=== PATIENT | male | born 1940 | race Caucasian/White ===

== ENCOUNTER 2018-01-14 07:49 | Inpatient (IN) | payer OTHER ==
[2017-12-28 11:25] VITALS: BMI 32.0
--- NOTE | 2017-12-28 12:02 | PAT Medication Instructions ---
Service Date Dec 28, 2017. Current Home Medication List Aspirin (Aspirin Ec), 81 MG PO QPM Citalopram Hydrobromide (Citalopram Hydrobromide), 1 TAB PO QAM Digoxin (Digoxin), 1 TAB PO QAM Furosemide (Lasix), 40 MG PO Q2D Insulin Glargine (Toujeo Solostar), 30 UNITS SQ BID Levothyroxine Sodium (Levothyroxine Sodium), 1 TAB PO QAM Linaclotide (Linzess), 1 CAP PO Q2D Lisinopril (Zestril), 20 MG PO QAM Metoprolol Tartrate (Lopressor) (Lopressor), 25 MG PO BID Oxycodone Ir (Roxicodone Ir), 5 MG PO Q6H PRN for Pain Ranitidine (Zantac), 300 MG PO HS Sennosides-Docusate Sodium (Stool Softener), 1 TAB PO BID Medication Instructions For Your Scheduled Surgery - Hold the following medications the morning of surgery: Sennosides-Docusate Sodium (Stool Softener), 1 TAB PO BID Lisinopril (Zestril), 20 MG PO QAM Linaclotide (Linzess), 1 CAP PO Q2D Furosemide (Lasix), 40 MG PO Q2D - Take the following medications the morning of surgery with a sip of water: Citalopram Hydrobromide (Citalopram Hydrobromide), 1 TAB PO QAM Digoxin (Digoxin), 1 TAB PO QAM Levothyroxine Sodium (Levothyroxine Sodium), 1 TAB PO QAM Metoprolol Tartrate (Lopressor) (Lopressor), 25 MG PO BID Oxycodone Ir (Roxicodone Ir), 5 MG PO Q6H PRN for Pain (okay to take up to 4 hours prior to surgery if needed) - Take the following medications as scheduled the night before surgery: Sennosides-Docusate Sodium (Stool Softener), 1 TAB PO BID Ranitidine (Zantac), 300 MG PO HS Metoprolol Tartrate (Lopressor) (Lopressor), 25 MG PO BID Oxycodone Ir (Roxicodone Ir), 5 MG PO Q6H PRN for Pain (if needed) Linaclotide (Linzess), 1 CAP PO Q2D Insulin Glargine (Toujeo Solostar), 30 UNITS SQ BID Aspirin (Aspirin Ec), 81 MG PO QPM - For Insulin Dependent Diabetic patients: Test blood sugar A.M. of surgery. - If Blood sugar greater than 150, take half of your regular dose of: Insulin Glargine (Toujeo Solostar), take 15 units - If Blood sugar less than 150, do not take any: Insulin Glargine (Toujeo Solostar) If you have any questions please call us at [phone] or [phone] or [phone]
--- NOTE | 2017-12-28 12:47 | DIAGNOSTIC IMAGING REPORT ---
TWO VIEW CHEST CLINICAL HISTORY: Preoperative examination. FINDINGS: PA and lateral chest radiographs are obtained. No prior studies are available for comparison at the time of dictation. The heart is mildly enlarged and there is atherosclerotic calcification of the thoracic aorta. The pulmonary vasculature is noncongested. Nonspecific interstitial thickening is noted. Findings suggest emphysema. There are airspace opacities at the left lung base with blunting of the costophrenic sulcus. There is also mild blunting of the right posterior frontal sulcus single frontal view. This could not be corroborated on the lateral view. There is no pneumothorax. The skeletal structures are osteopenic. Degenerative change is seen throughout the thoracic spine. Surgical clips are noted in the upper abdomen. IMPRESSION: 1. Cardiomegaly and suspect emphysema. 2. No acute cardiopulmonary abnormality is seen. 3. There is blunting of the calcific sulci bilaterally seen on the frontal view which could not be corroborated on the lateral view. This may represent pleural thickening versus small pleural effusions. Consider chest CT if further assessment is desired. Electronically signed by: Nitin Crowley M.D. 12/28/2017 12:45 PM Dictated Date/Time: 12/28/2017 12:43 PM
[2017-12-28 13:08] LABS: BASO % 0.4 %; BASO ABS # 0.03 K/uL (0-0.2); EOS % 3.6 %; EOS ABS # 0.28 K/uL (0-0.5); HEMATOCRIT 39.1 % (42-52); HEMOGLOBIN 12.5 g/dL (14.0-18.0); IG# 0.03 K/uL (0.00-0.02); LYMPH % 20.5 %; LYMPH ABS # 1.58 K/uL (1.2-3.4); MEAN CELL VOLUME 86.1 fL (80-100); MEAN CORPUSCULAR HEMOGLOBIN 27.5 pg (25-34); MEAN PLATELET VOLUME 9.9 fL (7.4-10.4); MONO % 9.1 %; NEUT ABS # 5.09 K/uL (1.4-6.5); PLATELET COUNT 164 K/uL (130-400); RED CELL DISTRIBUTION WIDTH CV 15.2 % (11.5-14.5); RED CELL DISTRIBUTION WIDTH SD 48.6 fL (36.4-46.3); WHITE BLOOD COUNT 7.71 K/uL (4.8-10.8)
[2017-12-28 13:30] LABS: CALCIUM 8.6 mg/dl (8.5-10.1); CREATININE 1.72 mg/dl (0.60-1.40); POTASSIUM 5.2 mmol/L (3.5-5.1)
[2018-01-14] VITALS (7 sets, daily range): BP systolic 157–218; BP diastolic 73–97; PULSE 54–65; TEMP 36.5–37.2; O2SAT 92–93; BMI 32.0
[~2018-01-14] VITALS: Ht 175.3 cm; Wt 93.0 kg
[~2018-01-14 07:49] MED LIST: ASPI81TA28 PO; CEFAZOLIN 2000MG IV PUSH 15 ML IV SCH; CITA20TA4 PO; FRS/40 PO; INSU1.2I SQ; LEVO100T7 PO; LINA72CA PO; LISI-725 PO; LNX125 PO; METO25TA56 PO; OXYC1TAB3 PO; RANI300T2 PO; SENNTAB23 PO; SODIUM CHLORIDE 0.9% 1000ML 1,000 ML IV SCH
--- NOTE | 2018-01-14 09:24 | DIAGNOSTIC IMAGING REPORT ---
CHEST ONE VIEW PORTABLE HISTORY: Short of breath. rales on exam COMPARISON: Chest 12/28/2017. FINDINGS: Progression of the interstitial and vascular thickening consistent with mild pulmonary edema. There are small bilateral pleural effusions. The heart is mildly enlarged. Left basilar densities persist. IMPRESSION: 1. Interval development of mild pulmonary edema and small bilateral pleural effusions. 2. Left basilar density persists. Electronically signed by: Sridhar Mares M.D. 01/14/2018 9:23 AM Dictated Date/Time: 01/14/2018 9:22 AM
[2018-01-14] MEDS ORDERED: FENTANYL CITRATE INJ 50 MCG/1 ML 2 ML VIAL ONE (09:41)
[2018-01-14] MEDS ORDERED: MIDAZOLAM HCL 1 MG/ML 2ML VIAL ONE (09:41)
--- NOTE | 2018-01-14 09:45 | History & Physical Bridge Note ---
H&P Re-Evaluation Bridge Note: I have examined the patient, reviewed the History & Physical and in the interval since the performance of the History & Physical I have noted the following changes of clinical significance: No changes noted
--- NOTE | 2018-01-14 09:46 | History and Physical ---
History & Physical Date Jan 14, 2018. Chief Complaint Back and leg pain History of Present Illness The patient is a 77 year old male with complaints of back and leg pain Additional History Hepatic Disease: No Endocrine Disorder: No Kidney Disease: No Hypertension: Yes Heart Disease: No Bleeding Tendencies: No Infectious Diseases: No Allergies Coded Allergies: No Known Allergies (Unverified , 12/28/17) Home Medications Scheduled Aspirin (Aspirin Ec), 81 MG PO QPM Citalopram Hydrobromide (Citalopram Hydrobromide), 1 TAB PO QAM Digoxin (Digoxin), 1 TAB PO QAM Furosemide (Lasix), 40 MG PO Q2D Insulin Glargine (Toujeo Solostar), 30 UNITS SQ BID Levothyroxine Sodium (Levothyroxine Sodium), 1 TAB PO QAM Linaclotide (Linzess), 1 CAP PO Q2D Lisinopril (Zestril), 20 MG PO QAM Metoprolol Tartrate (Lopressor) (Lopressor), 25 MG PO BID Ranitidine (Zantac), 300 MG PO HS Sennosides-Docusate Sodium (Stool Softener), 1 TAB PO BID Scheduled PRN Oxycodone Ir (Roxicodone Ir), 5 MG PO Q6H PRN for Pain Physical Examination Skin: warm/dry, no rash Eyes: normal inspection, EOMI, sclerae normal ENT: normal ENT inspection, pharynx normal Head: normocephalic, atraumatic Neck: supple, no adenopathy, trachea midline Respiratory/Chest: lungs clear, normal breath sounds, no respiratory distress Cardiovascular: regular rate, rhythm, no edema, no murmur Abdomen / GI: normal bowel sounds, non tender Back: normal inspection Extremities: normal inspection, normal range of motion Neurologic/Psych: no motor/sensory deficits, alert, normal reflexes, oriented x 3 Diagnosis Lumbar spinal stenosis Plan of Treatment Lumbar decompression fusion L2-L5
[2018-01-14] MEDS ORDERED: ONDANSETRON INJ 2 MG/ML 2 ML VIAL IV PRN (10:30)
[2018-01-14] MEDS ORDERED: GLUCOSE 10 TABS/TUBE PO PRN (11:45)
[2018-01-14] MEDS ORDERED: POLYETHYLENE (MIRALAX) 17 GM PACK PO PRN (11:45)
[2018-01-14] MEDS ORDERED: GLUCOSE 40% GEL 15 GM TUBE PO PRN (11:45)
[2018-01-14] MEDS ORDERED: GLUCAGON FOR INJ 1 MG VIAL SQ PRN (11:45)
[2018-01-14] MEDS ORDERED: DEXTROSE 50% 50 ML SYR IV PRN (11:45)
[2018-01-14] MEDS ORDERED: LISINOPRIL 20 MG TAB PO ONE (12:00)
[2018-01-14] MEDS: INSULIN ASPART 100 UNITS/ML 3 ML PEN SC SCH ×3 (12:00→21:00)
[2018-01-14] MEDS ORDERED: FUROSEMIDE INJ 40 MG in SYRINGE 0 ML IV ONE (12:00)
--- NOTE | 2018-01-14 12:52 | Anesthesiology Progress Note ---
Anesthesia Progress Note Date of Service Jan 14, 2018. Progress Notes The patient is a 77 y/o with a h/o significant past medical history including DM, COPD, HTN, DLD, OR, and CHF who was scheduled for lumbar decompression fusion with Dr. Brown. While examining the patient in preop holding today I noticed that he had rales in both lungs on exam. The patient also had some pitting edema in his extremities which he stated was slightly worse than usual. He also stated that he had been more short of breath in the last several days. A CXR was ordered and showed trace bilateral pleural effusions and vascular congestion which was not present on his CXR from 2017. A BNP was also drawn and was 5,000. The patient did eventually admit that he had stopped taking his Lasix without telling anyone a couple weeks ago because he was urinating frequently at night. I spoke to Dr. Brown who agreed that the patient should not undergo surgery today as he is clearly volume overloaded. Dr. Sauer with Internal Medicine was consulted and evaluated the patient at the bedside. He will admit the patien and surgery may be done on Wednesday if patient is optimized at that point. The patient and his were agreeable.
[2018-01-14] MEDS: HEPARIN SOD 5000 UNIT/0.5 ML CARP SQ SCH ×2 (13:44→22:13)
[2018-01-14] MEDS: HydrALAZINE HCL 20 MG/ML VIAL IV. PRN (13:59)
--- NOTE | 2018-01-14 15:37 | History and Physical ---
History & Physical Date & Time of Service: Jan 14, 2018 at 15:21 Chief Complaint: Acute On Chronic Diastolic(Congestive) Heart Failu Primary Care Physician: Iam Nicholas M.D. History of Present Illness Source: patient, family, hospital records 77 yo male who presented today for elective back surgery, found to have rales in bases of lungs on exam, CXR showed pulmonary edema. Surgery post poned. He admitted that he had stopped taking his Lasix every other day as previously prescribed, had stopped a few weeks ago. Admitted to increased dyspnea on exertion, no orthopnea, no dyspnea at night. Had not noticed peripheral edema. Does not weigh himself so not sure if he was gaining weight. BP markedly high at 217 systolic, says he normally has well controlled blood pressure. reviewed medical history, CKD stage III, cardiomyopathy with h/o EF of 45%, more recently improved to 55%, HTN, depression, hypothyroidism. has been battling a UTI recently, Citrobacter on culture, was initially treated with Augmentin, repeat culture showed resistance to amoxicillin, PCP had recommended Cipro. 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) Allergies Coded Allergies: No Known Allergies (Unverified , 01/14/18) Home Medications Scheduled Aspirin (Aspirin Ec), 81 MG PO QPM Citalopram Hydrobromide (Citalopram Hydrobromide), 1 TAB PO QAM Digoxin (Digoxin), 1 TAB PO QAM Furosemide (Lasix), 40 MG PO Q2D Insulin Glargine (Toujeo Solostar), 30 UNITS SQ BID Levothyroxine Sodium (Levothyroxine Sodium), 1 TAB PO QAM Linaclotide (Linzess), 1 CAP PO Q2D Lisinopril (Zestril), 20 MG PO QAM Metoprolol Tartrate (Lopressor) (Lopressor), 25 MG PO BID Ranitidine (Zantac), 300 MG PO HS Sennosides-Docusate Sodium (Stool Softener), 1 TAB PO BID Scheduled PRN Oxycodone Ir (Roxicodone Ir), 5 MG PO Q6H PRN for Pain Review of Systems Constitutional: No fever, No chills, No sweats, No weight loss, No weakness, No fatigue, No problem reported Eyes: No worsening of vision, No eye pain, No redness, No discharge, No diplopia, No problem reported ENT: No hearing loss, No unusual epistaxis, No nasal symptoms, No sore throat, No tinnitus, No dental problems, No trouble swallowing, No problem reported Respiratory: + dyspnea on exertion, No cough, No sputum, No wheezing, No shortness of breath, No dyspnea at rest, No hemoptysis, No problem reported Cardiovascular: No chest pain, No orthopnea, No PND, No edema, No claudication , No palpitations, No problem reported Abdomen: No pain, No nausea, No vomiting, No diarrhea, No constipation, No GI bleeding, No problem reported Musculoskeletal: + joint pain (low back pain), No muscle pain, No swelling, No calf pain, No problem reported Genitourinary - Male: No hematuria, No dysuria, No urinary frequency, No urinary urgency, No urinary hesitancy, No urinary retention Neurologic: No memory loss, No paralysis, No weakness, No numbness/tingling, No vertigo, No balance problems, No problem reported Psychiatric: No depression symptoms, No anhedonism, No anxiety, No insomnia, No substance abuse, No problem reported Endocrine: No fatigue, No excessive thirst, No excessive urination, No problem reported Hematologic / Lymphatic: No abnormal bleeding/bruising, No clotting problems, No swollen lymph nodes, No night sweats, No problem reported Integumentary: No rash, No itch, No new/changing skin lesions, No color change , No bleeding, No problem reported Allergic / Immunologic: No environmental allergies, No seasonal allergies, No pet sensitivities, No food allergies, No hives, No frequent infections, No poor healing, No prolonged convalescence, No problem reported Physical Exam Vital Signs Date Time Temp Pulse Resp B/P (MAP) Pulse Ox O2 Delivery O2 Flow Rate FiO2 01/14/18 14:53 37.2 63 16 209/81 (123) 92 Room Air 01/14/18 13:54 65 198/77 (117) 01/14/18 11:39 Room Air 01/14/18 11:29 37.1 65 16 218/88 (131) 92 Room Air 01/14/18 08:14 36.5 59 18 217/97 93 Room Air General Appearance: WD/WN, no apparent distress Head: normocephalic, atraumatic Eyes: normal inspection, EOMI, sclerae normal ENT: normal ENT inspection, hearing grossly normal, pharynx normal Neck: supple, no adenopathy, no JVD, trachea midline Respiratory/Chest: chest non-tender, no respiratory distress, no accessory muscle use, + rales (bibasilar) Cardiovascular: regular rate, rhythm, no edema, no gallop, no JVD, no murmur, normal peripheral pulses Abdomen/GI: normal bowel sounds, non tender, soft, no organomegaly Back: normal inspection, no CVA tenderness, no muscle spasm, + decreased range of motion (decreased ROM of lower back) Extremities/Musculoskelatal: normal inspection, no calf tenderness, normal capillary refill, no pedal edema, normal range of motion, pelvis stable 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, no motor/sensory deficits, alert, normal mood/affect, normal reflexes, oriented x 3 Skin: normal color, warm/dry, no rash Lymphatic: no adenopathy Diagnostics Laboratory Results Results Past 24 Hours Test 01/14/18 08:11 01/14/18 10:15 01/14/18 12:30 01/14/18 12:51 Range/Units Bedside Glucose 87 66 75 70-99 mg/dl Pro-B-Type Natriuretic Peptide 5000 0-1800 pg/ml Diagnostic Radiology CXR: interval development of pulmonary edema Normal EKG Impression Assessment and Plan 77 yo male with acute pulmonary edema due to noncompliance with Lasix - Acute on chronic diastolic heart failure: due to noncompliance gave Lasix 40mg IV, one dose, already diuresing a lot will repeat CXR in the AM check BMP - Accelerated HTN: BP continues to be high, > 200 systolic says that his pressure is well controlled outpatient missed morning Lisinopril dose gave Lisinopril 20mg one time, continue BID dosing Lopressor 25mg BID Hydralazine PRN, did not help will give a dose of Norvasc 5mg - DM: continue basal and Novolog, diabetic diet - Hypothyroidism: Synthroid - Lumbar spinal stenosis: hold on surgery for now, will reassess patient tomorrow may be able to go home and return on Wednesday will discuss with Dr. Brown tomorrow DVT proph: Heparin full code Advanced Directives Existing Living Will: No Existing Power of Circle Edger: No Resuscitation Status VTE Prophylaxis Will order VTE Prophylaxis: Yes Additional Copies To Iam Nicholas M.D.
[2018-01-14] MEDS ORDERED: AMLODIPINE BESYLATE 5 MG TAB PO ONE (16:03)
[2018-01-14] MEDS ORDERED: IV FLUIDS COMPLETED PRN (16:15)
--- NOTE | 2018-01-14 16:44 | DIAGNOSTIC IMAGING REPORT ---
LUMBAR SPINE W/O CONTRAST CLINICAL HISTORY: 77 years-old Male presenting with back and leg pain, low back pain radiating into both legs, recent worsening. TECHNIQUE: Multisequence, multiplanar MR imaging of the lumbar spine was performed without the use of intravenous contrast. IV contrast: None. COMPARISON: None. FINDINGS: Localizer images: Unremarkable. Normal lumbar lordosis. Vertebral bodies maintain normal height. Minimal bony edema evidence at the right anterior aspect of L2 associated with degenerative change. No fluid signal intensity within the L2-3 disc. Prominent Schmorl's node also noted at the inferior endplate of L2. 4 mm of grade 1 anterolisthesis of L3 on L4. Remainder of vertebral bodies maintain normal alignment. Diffuse intervertebral disc desiccation and height loss most severe at L2-3. Multilevel degenerative changes further detailed below: L1-2: No significant spinal canal or neural foraminal narrowing. L2-3: Disc bulge, facet arthropathy and mild ligamentum flavum thickening result in circumferential effacement of the thecal sac though CSF signal intensity is subtly maintained. Moderate bilateral neural foraminal narrowing noted. L3-4: Disc bulge in combination with facet arthropathy, ligamentum flavum thickening, anterolisthesis results in complete effacement of CSF signal intensity with circumferential narrowing of the spinal canal. Additionally mild bilateral neural foraminal narrowing noted. L4-5: Disc bulge results in mild bilateral neural foraminal narrowing. No second spinal canal stenosis. L5-S1: No significant spinal canal or neural foraminal narrowing. Facet arthropathy noted. The spinal cord remains in good position at L1. There is a buckled appearance of the cauda equina suggesting impingement. No paraspinal edema. Nonspecific subcutaneous edema in the lumbar region. IMPRESSION: 1. Findings concerning for cauda equina impingement at the level of L3-4 due to grade 1 anterolisthesis, disc bulge, facet arthropathy, and ligamentum flavum thickening. Resultant buckled morphology of the cauda equina. 2. Multilevel degenerative changes with less severe spinal stenosis at L2-3 and varying degrees of neural foraminal narrowing. The report will be called/faxed according to standard departmental protocol. Electronically signed by: Julian Bae M.D. 01/14/2018 4:42 PM Dictated Date/Time: 01/14/2018 4:36 PM
[2018-01-14] MEDS: RANITIDINE HCL 150 MG TAB PO SCH (21:05)
[2018-01-14] MEDS: DOCUSATE SODIUM/SENNA 50/8.6MG TAB PO SCH (21:05)
[2018-01-14] MEDS: METOPROLOL TARTRATE 25 MG TAB PO SCH (21:06)
[2018-01-14] MEDS: CIPROFLOXACIN 250 MG TAB PO SCH (21:06)
[2018-01-14] MEDS ORDERED: INSULIN GLARGINE SOLOSTAR 100 UNITS/ML 3 ML PEN SC SCH (21:30)
[2018-01-15] VITALS (10 sets, daily range): BP systolic 164–191; BP diastolic 74–92; PULSE 51–68; TEMP 36.8–36.9; O2SAT 93–95
[2018-01-15] MEDS: LEVOTHYROXINE 100 MCG TAB PO SCH (05:42)
[2018-01-15] MEDS: HEPARIN SOD 5000 UNIT/0.5 ML CARP SQ SCH ×3 (05:45→22:04)
[2018-01-15] MEDS: METOPROLOL TARTRATE 25 MG TAB PO SCH ×2 (08:10→20:58)
[2018-01-15] MEDS: INSULIN ASPART 100 UNITS/ML 3 ML PEN SC SCH ×4 (08:47→20:59)
[2018-01-15] MEDS: INSULIN GLARGINE SOLOSTAR 100 UNITS/ML 3 ML PEN SC SCH (08:47)
[2018-01-15] MEDS: CITALOPRAM 20 MG TAB PO SCH (08:49)
[2018-01-15] MEDS: CIPROFLOXACIN 250 MG TAB PO SCH ×2 (08:50→20:58)
[2018-01-15] MEDS: DOCUSATE SODIUM/SENNA 50/8.6MG TAB PO SCH ×2 (08:50→20:57)
[2018-01-15] MEDS: DIGOXIN 0.125 MG TAB PO SCH (08:50)
[2018-01-15] MEDS ORDERED: LISINOPRIL 20 MG TAB PO SCH (09:00)
[2018-01-15 09:36] LABS: BASO % 0.9 %; BASO ABS # 0.07 K/uL (0-0.2); HEMATOCRIT 42.2 % (42-52); HEMOGLOBIN 13.8 g/dL (14.0-18.0); IG# 0.02 K/uL (0.00-0.02); LYMPH ABS # 1.33 K/uL (1.2-3.4); MEAN CELL VOLUME 85.3 fL (80-100); MEAN CORPUSCULAR HEMOGLOBIN 27.9 pg (25-34); MEAN CORPUSCULAR HGB CONC 32.7 g/dl (32-36); MEAN PLATELET VOLUME 10.9 fL (7.4-10.4); MONO % 10.9 %; MONO ABS # 0.85 K/uL (0.11-0.59); NEUT % 70.9 %; NEUT ABS # 5.56 K/uL (1.4-6.5); PLATELET COUNT 163 K/uL (130-400); RED CELL DISTRIBUTION WIDTH CV 15.1 % (11.5-14.5); WHITE BLOOD COUNT 7.83 K/uL (4.8-10.8)
--- NOTE | 2018-01-15 09:42 | DIAGNOSTIC IMAGING REPORT ---
CHEST 2 VIEWS ROUTINE CLINICAL HISTORY: CHF dyspnea COMPARISON STUDY: 01/14/2018 FINDINGS: Mild stable cardiomegaly. Small bilateral pleural effusions unchanged. Pulmonary vasculature is slightly diminished. IMPRESSION: Improving mild congestive failure. Small residual bilateral pleural effusions. The above report was generated using voice recognition software. It may contain grammatical, syntax or spelling errors. Electronically signed by: Isael Calderon M.D. 01/15/2018 9:41 AM Dictated Date/Time: 01/15/2018 9:40 AM
[2018-01-15 10:40] LABS: CALCIUM 8.7 mg/dl (8.5-10.1); CREATININE 1.7 mg/dl (0.60-1.40)
[2018-01-15] MEDS ORDERED: FUROSEMIDE 40 MG TAB PO ONE (11:45)
--- NOTE | 2018-01-15 13:22 | Progress Note ---
Subjective Date of Service: Jan 15, 2018. Subjective Pt evaluation today including: conversation w/ patient, conversation w/ family , physical exam, lab review, review of studies, conversation w/ wireless consultant, review of inpatient medication list Pain: low back pain PO Intake: adequate Voiding: no voiding problems urinating a lot yesterday with Pastor says breathing is improved, still with dyspnea on exertion CXR reviewed by myself, still with some pulmonary congestion reviewed labs, Cr stable at 1.7 CBC normal reviewed MRI lumbar spine report, discussed with Dr. Brown he says that his spine is worse, recommends staying until Wednesday for surgery discussed plan with patient, he agrees to stay until Wednesday Review of Systems Constitutional: + weakness, + fatigue Respiratory: + dyspnea on exertion Musculoskeletal: + joint pain (low back) All Other Systems: Reviewed and Negative Medications Current Inpatient Medications Medications (Trade) Dose Ordered Sig/Idanne Route Start Time Stop Time Status Last Admin Dose Admin Heparin Sodium (Porcine) (Heparin Sq 5000 Unit/0.5ml) 5,000 unit Q8H SQ 01/14/18 14:00 02/13/18 13:59 01/15/18 05:45 5,000 UNIT Acetaminophen (Tylenol Tab) 650 mg Q4H PRN PO 01/14/18 10:30 02/13/18 10:29 Polyethylene (Miralax Powder Packet) 17 gm DAILY PRN PO 01/14/18 11:45 02/13/18 11:44 Ondansetron HCl (Zofran Inj) 4 mg Q6H PRN IV 01/14/18 10:30 02/13/18 10:29 Citalopram Hydrobromide (celeXA TAB) 20 mg QAM PO 01/15/18 09:00 02/14/18 08:59 01/15/18 08:49 20 MG Digoxin (Lanoxin Tab) 0.125 mg QAM PO 01/15/18 09:00 02/14/18 08:59 01/15/18 08:50 0.125 MG Levothyroxine Sodium (Synthroid Tab) 100 mcg DAILYBB PO 01/15/18 06:00 02/14/18 05:59 01/15/18 05:42 100 MCG Metoprolol Tartrate (Lopressor Tab) 25 mg BID PO 01/14/18 21:00 02/13/18 20:59 01/15/18 08:10 25 MG Oxycodone HCl (Roxicodone Immediate Rel Tab) 5 mg Q6H PRN PO 01/14/18 10:45 01/28/18 10:44 Senna/Docusate Sodium (Senokot S Tab) 1 tab BID PO 01/14/18 21:00 02/13/18 20:59 01/15/18 08:50 1 TAB Insulin Glargine (Lantus Solostar Pen) 30 units BID SC 01/14/18 21:00 02/13/18 20:59 Future hold 01/15/18 08:47 30 UNITS Miscellaneous Information (Order Awaiting Action) 1 ea QS N/A 01/14/18 16:00 02/13/18 15:59 Ranitidine HCl (zANTac TAB) 300 mg HS PO 01/14/18 21:00 02/13/18 20:59 01/14/18 21:05 300 MG Insulin Aspart (novoLOG ASPART) SLIDING SCALE G... ACHS SC 01/14/18 12:00 02/13/18 11:59 01/15/18 12:48 3 UNITS Hydralazine HCl (HydrALAZINE INJ) 10 mg Q6 PRN IV. 01/14/18 11:15 02/13/18 11:14 01/14/18 13:59 10 MG Lisinopril (Zestril Tab) 20 mg QAM PO 01/15/18 09:00 02/14/18 08:59 01/15/18 08:10 20 MG Glucose (Glucose 40% Gel) 15-30 GRAMS 15 GRAMS... UD PRN PO 01/14/18 11:45 02/13/18 11:44 Glucose (Glucose Chew Tab) 4-8 Tablets 4 Tabl... UD PRN PO 01/14/18 11:45 02/13/18 11:44 Dextrose (Dextrose 50% 50ML Syringe) 25-50ML OF 50% DW IV FOR... UD PRN IV 01/14/18 11:45 02/13/18 11:44 Glucagon (Glucagon Inj) 1 mg UD PRN SQ 01/14/18 11:45 02/13/18 11:44 Ciprofloxacin (Ciprofloxacin Tab) 250 mg BID PO 01/14/18 21:00 01/19/18 20:59 01/15/18 08:50 250 MG Miscellaneous (Iv Fluids Completed) 1 ea PRN PRN N/A 01/14/18 16:15 01/14/19 16:14 Objective Vital Signs Date Time Temp Pulse Resp B/P (MAP) Pulse Ox O2 Delivery O2 Flow Rate FiO2 01/15/18 11:18 169/83 (111) 01/15/18 08:50 66 01/15/18 08:49 66 01/15/18 08:00 95 Room Air 01/15/18 07:01 36.8 68 18 179/74 (109) 95 Room Air 01/15/18 00:30 Room Air 01/14/18 22:55 37.0 54 16 93 Room Air 01/14/18 22:54 157/73 (101) 01/14/18 16:00 92 Room Air 01/14/18 14:53 37.2 63 16 209/81 (123) 92 Room Air 01/14/18 13:54 65 198/77 (117) Physical Exam General Appearance: WD/WN, no apparent distress Eyes: normal inspection, EOMI, sclerae normal ENT: normal ENT inspection, hearing grossly normal, pharynx normal Neck: supple, no adenopathy, no JVD, trachea midline Respiratory/Chest: chest non-tender, lungs clear, normal breath sounds, no respiratory distress, no accessory muscle use Cardiovascular: regular rate, rhythm, no edema, no gallop, no JVD, no murmur Abdomen: normal bowel sounds, non tender, soft, no organomegaly Extremities: non-tender, normal inspection, no pedal edema, no calf tenderness , pelvis stable, + pertinent finding (decreased ROM of lower back) 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 Small bilateral pleural effusions unchanged. Pulmonary vasculature is slightly diminished. IMPRESSION: Improving mild congestive failure. Small residual bilateral pleural effusions. Last 24 Hours Test 01/14/18 17:06 01/14/18 21:01 01/15/18 07:58 01/15/18 09:06 Bedside Glucose 120 mg/dl 101 mg/dl 72 mg/dl White Blood Count 7.83 K/uL Red Blood Count 4.95 M/uL Hemoglobin 13.8 g/dL Hematocrit 42.2 % Mean Corpuscular Volume 85.3 fL Mean Corpuscular Hemoglobin 27.9 pg Mean Corpuscular Hemoglobin Concent 32.7 g/dl Platelet Count 163 K/uL Mean Platelet Volume 10.9 fL Neutrophils (%) (Auto) 70.9 % Lymphocytes (%) (Auto) 17.0 % Monocytes (%) (Auto) 10.9 % Eosinophils (%) (Auto) 0.0 % Basophils (%) (Auto) 0.9 % Neutrophils # (Auto) 5.56 K/uL Lymphocytes # (Auto) 1.33 K/uL Monocytes # (Auto) 0.85 K/uL Eosinophils # (Auto) 0.00 K/uL Basophils # (Auto) 0.07 K/uL RDW Standard Deviation 47.0 fL RDW Coefficient of Variation 15.1 % Immature Granulocyte % (Auto) 0.3 % Immature Granulocyte # (Auto) 0.02 K/uL Sodium Level 139 mmol/L Potassium Level mmol/L Chloride Level 106 mmol/L Carbon Dioxide Level 27 mmol/L Anion Gap 6.0 mmol/L Blood Urea Nitrogen 16 mg/dl Creatinine 1.70 mg/dl Est Creatinine Clear Calc Drug Dose 42.3 ml/min Estimated GFR () 44.1 Estimated GFR (Non- 38.1 BUN/Creatinine Ratio 9.6 Random Glucose 103 mg/dl Calcium Level 8.7 mg/dl Test 01/15/18 10:59 Potassium Level 4.1 mmol/L Assessment and Plan 77 yo male with acute pulmonary edema due to noncompliance with Lasix - Acute on chronic diastolic heart failure: due to noncompliance responded well to Lasix 40mg IV yesterday, urinated significantly, no output recorded less edema in legs, lungs clear still with some congestion on CXR will give Lasix 40mg PO today for additional diuresis prior to surgery Cr is stable at 1.7 which is his baseline at home check labs again tomorrow and Wednesday morning - Accelerated HTN: BP better controlled today with additional medications he says it is typically 140/70 in the office, admits to some anxiety surrounding surgery, being here continue Lisinopril 20mg BID, Lopressor 25mg BID, Hydralazine PRN Lasix 40mg PO which could help with pressures - DM: continue basal and Novolog, diabetic diet, monitor for hypoglycemia had a low sugar yesterday at noon, value of 66 however, he was NPO for surgery, no issues since he resumed diet - Hypothyroidism: Synthroid, stable - Lumbar spinal stenosis: MRI lumbar spine shows worsening spinal stenosis L2/ L3 region plan for surgical correction on Wednesday Dr. Brown following DVT proph: Heparin full code
[2018-01-15] MEDS: HydrALAZINE HCL 20 MG/ML VIAL IV. PRN (18:06)
[2018-01-15] MEDS: RANITIDINE HCL 150 MG TAB PO SCH (20:58)
[2018-01-15] MEDS ORDERED: INSULIN GLARGINE SOLOSTAR 100 UNITS/ML 3 ML PEN SC SCH (22:00)
[2018-01-16] VITALS (7 sets, daily range): BP systolic 157–197; BP diastolic 63–90; PULSE 61–65; TEMP 36.5–37; O2SAT 93–94
[2018-01-16] MEDS: HydrALAZINE HCL 20 MG/ML VIAL IV. PRN (00:29)
[2018-01-16] MEDS: OXYCODONE HCL IR 5 MG TAB (IMMEDIATE RELEASE) PO PRN ×2 (01:19→23:29)
--- NOTE | 2018-01-16 02:57 | Progress Note ---
Progress Note Date of Service Jan 16, 2018. Progress Note I was asked to evaluate the patient due to elevated blood pressure and a discrepency between R and L sided BP's Right sided blood pressure originally was 164/81 and left sided blood pressure was 191/88 Repeat blood pressures after hydralazine administration was 177/79 on the R and 157/76 on the left I evaluated the patient and he denied any upper back pain, chest pain, palpitations or shortness of breath. I spoke to Dr. Benítez who suggested I order an echo and bilateral upper extremity ultrasounds to assess for stenosis of the subclavian arteries
[2018-01-16] MEDS: LEVOTHYROXINE 100 MCG TAB PO SCH (05:56)
[2018-01-16] MEDS: HEPARIN SOD 5000 UNIT/0.5 ML CARP SQ SCH ×3 (06:00→21:33)
--- NOTE | 2018-01-16 06:16 | DIAGNOSTIC IMAGING REPORT ---
ART DOP DUP UPPER EXT BILAT CLINICAL HISTORY: 77 years-old Male presenting with Discrepancy in blood pressure in upper extremities. TECHNIQUE: Real-time grayscale and color and spectral Doppler ultrasound imaging of the arteries of the bilateral upper extremities was performed. Measurements calculated based on NASCET criteria. COMPARISON: None. FINDINGS: Right: Innominate artery: Patent. Peak systolic velocity 80 cm/s. Common carotid artery: Patent. Peak systolic velocity 113 cm/s. Vertebral artery: Not well visualized but grossly patent with normal directional flow. Peak systolic velocity 67 cm/s. Subclavian artery: Patent. Peak systolic velocity 191 cm/s. Axillary artery: Patent. Peak systolic velocity 105 cm/s. Left: Common carotid artery: Patent. Peak systolic velocity 113 cm/s. Vertebral artery: Patent. Peak systolic velocity 57 cm/s. Subclavian artery: Patent. Peak systolic velocity 220 cm/s. Axillary artery: Patent. Peak systolic velocity 106 cm/s. IMPRESSION: 1. No hemodynamically significant stenosis seen within the upper extremity arteries. Symmetric velocities in the subclavian arteries without visualized stenosis. Electronically signed by: Julian Bae M.D. 01/16/2018 6:14 AM Dictated Date/Time: 01/16/2018 6:09 AM
[2018-01-16 06:46] LABS: CALCIUM 8.2 mg/dl (8.5-10.1); CREATININE 1.8 mg/dl (0.60-1.40); POTASSIUM 3.8 mmol/L (3.5-5.1)
[2018-01-16] MEDS: INSULIN ASPART 100 UNITS/ML 3 ML PEN SC SCH ×4 (08:00→21:00)
[2018-01-16] MEDS: INSULIN GLARGINE SOLOSTAR 100 UNITS/ML 3 ML PEN SC SCH ×2 (08:58→21:01)
[2018-01-16] MEDS: CIPROFLOXACIN 250 MG TAB PO SCH ×2 (08:59→20:57)
[2018-01-16] MEDS: DOCUSATE SODIUM/SENNA 50/8.6MG TAB PO SCH ×2 (08:59→20:57)
[2018-01-16] MEDS: METOPROLOL TARTRATE 25 MG TAB PO SCH ×2 (08:59→20:57)
[2018-01-16] MEDS: CITALOPRAM 20 MG TAB PO SCH (08:59)
[2018-01-16] MEDS: DIGOXIN 0.125 MG TAB PO SCH (09:01)
[2018-01-16] MEDS: LISINOPRIL 40 MG TAB PO SCH (10:16)
--- NOTE | 2018-01-16 10:24 | Progress Note ---
Subjective Date of Service: Jan 16, 2018. Subjective Pt evaluation today including: conversation w/ patient, physical exam, lab review, review of studies, conversation w/ customer consultant, review of inpatient medication list Pain: low back pain PO Intake: adequate Voiding: no voiding problems patient feeling well, urinated a lot yesterday with Lasix 40mg PO discussed events of last night, concerns raised by RN about elevated blood pressure, discrepancies in pressure readings in left and right arm arterial US of upper extremities did not show any stenosis cancelled echo since he had one as outpatient patient has not symptoms due to his elevated pressures, again, reports they are well controlled as outpatient breathing well, no edema, no dyspnea on exertion, no orthopnea reviewed labs, Cr 1.8 but overall stable, was 1.7 on admission which is baseline told patient to plan for surgery tomorrow Review of Systems Musculoskeletal: + joint pain (low back) All Other Systems: Reviewed and Negative Medications Current Inpatient Medications Medications (Trade) Dose Ordered Sig/Dianne Route Start Time Stop Time Status Last Admin Dose Admin Heparin Sodium (Porcine) (Heparin Sq 5000 Unit/0.5ml) 5,000 unit Q8H SQ 01/14/18 14:00 02/13/18 13:59 01/16/18 06:00 5,000 UNIT Acetaminophen (Tylenol Tab) 650 mg Q4H PRN PO 01/14/18 10:30 02/13/18 10:29 Polyethylene (Miralax Powder Packet) 17 gm DAILY PRN PO 01/14/18 11:45 02/13/18 11:44 Ondansetron HCl (Zofran Inj) 4 mg Q6H PRN IV 01/14/18 10:30 02/13/18 10:29 Citalopram Hydrobromide (celeXA TAB) 20 mg QAM PO 01/15/18 09:00 02/14/18 08:59 Future hold 01/16/18 08:59 20 MG Digoxin (Lanoxin Tab) 0.125 mg QAM PO 01/15/18 09:00 02/14/18 08:59 01/16/18 09:01 0.125 MG Levothyroxine Sodium (Synthroid Tab) 100 mcg DAILYBB PO 01/15/18 06:00 02/14/18 05:59 01/16/18 05:56 100 MCG Metoprolol Tartrate (Lopressor Tab) 25 mg BID PO 01/14/18 21:00 02/13/18 20:59 01/16/18 08:59 25 MG Oxycodone HCl (Roxicodone Immediate Rel Tab) 5 mg Q6H PRN PO 01/14/18 10:45 01/28/18 10:44 01/16/18 01:19 5 MG Senna/Docusate Sodium (Senokot S Tab) 1 tab BID PO 01/14/18 21:00 02/13/18 20:59 01/16/18 08:59 1 TAB Miscellaneous Information (Order Awaiting Action) 1 ea QS N/A 01/14/18 16:00 02/13/18 15:59 Ranitidine HCl (zANTac TAB) 300 mg HS PO 01/14/18 21:00 02/13/18 20:59 01/15/18 20:58 300 MG Insulin Aspart (novoLOG ASPART) SLIDING SCALE G... ACHS SC 01/14/18 12:00 02/13/18 11:59 01/15/18 18:15 3 UNITS Hydralazine HCl (HydrALAZINE INJ) 10 mg Q6 PRN IV. 01/14/18 11:15 02/13/18 11:14 01/16/18 00:29 10 MG Glucose (Glucose 40% Gel) 15-30 GRAMS 15 GRAMS... UD PRN PO 01/14/18 11:45 02/13/18 11:44 Glucose (Glucose Chew Tab) 4-8 Tablets 4 Tabl... UD PRN PO 01/14/18 11:45 02/13/18 11:44 Dextrose (Dextrose 50% 50ML Syringe) 25-50ML OF 50% DW IV FOR... UD PRN IV 01/14/18 11:45 02/13/18 11:44 Glucagon (Glucagon Inj) 1 mg UD PRN SQ 01/14/18 11:45 02/13/18 11:44 Ciprofloxacin (Ciprofloxacin Tab) 250 mg BID PO 01/14/18 21:00 01/19/18 20:59 01/16/18 08:59 250 MG Miscellaneous (Iv Fluids Completed) 1 ea PRN PRN N/A 01/14/18 16:15 01/14/19 16:14 Lisinopril (Zestril Tab) 40 mg QAM PO 01/16/18 09:00 02/14/18 08:59 Future hold Insulin Glargine (Lantus Solostar Pen) 15 units BID SC 01/16/18 21:00 02/13/18 20:59 UNV Objective Vital Signs Date Time Temp Pulse Resp B/P (MAP) Pulse Ox O2 Delivery O2 Flow Rate FiO2 01/16/18 10:03 Room Air 01/16/18 09:01 68 01/16/18 07:27 37.0 65 18 174/85 (114) 94 Room Air 01/16/18 02:25 177/79 (111) 01/16/18 02:25 157/76 (103) 01/16/18 00:24 188/72 (110) 01/16/18 00:24 197/90 (125) 01/16/18 00:00 Room Air 01/15/18 23:21 191/81 (117) 01/15/18 23:00 191/88 (122) 01/15/18 22:58 36.9 60 17 164/81 (108) 94 Room Air 01/15/18 20:45 68 175/82 (113) 94 Room Air 01/15/18 16:00 93 Room Air 01/15/18 14:58 36.9 51 16 184/92 (122) 93 Room Air 01/15/18 11:18 169/83 (111) Physical Exam General Appearance: WD/WN, no apparent distress Eyes: normal inspection, EOMI, sclerae normal ENT: normal ENT inspection, hearing grossly normal, pharynx normal Neck: supple, no adenopathy, no JVD, trachea midline Respiratory/Chest: chest non-tender, lungs clear, normal breath sounds, no respiratory distress, no accessory muscle use Cardiovascular: regular rate, rhythm, no edema, no gallop, no JVD, no murmur Abdomen: normal bowel sounds, non tender, soft, no organomegaly Extremities: normal inspection, no pedal edema, no calf tenderness, normal capillary refill, pelvis stable, + pertinent finding (decreased ROM of lower back) 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, no motor/sensory deficits, alert, normal mood/affect, oriented x 3 Skin: normal color, warm/dry, no rash Laboratory Results Last 24 Hours Test 01/15/18 10:59 01/15/18 11:52 01/15/18 17:14 01/15/18 20:37 Potassium Level 4.1 mmol/L Bedside Glucose 103 mg/dl 80 mg/dl 114 mg/dl Test 01/16/18 05:49 01/16/18 08:11 Sodium Level 141 mmol/L Potassium Level 3.8 mmol/L Chloride Level 108 mmol/L Carbon Dioxide Level 25 mmol/L Anion Gap 8.0 mmol/L Blood Urea Nitrogen 19 mg/dl Creatinine 1.80 mg/dl Est Creatinine Clear Calc Drug Dose 39.9 ml/min Estimated GFR () 41.2 Estimated GFR (Non- 35.5 BUN/Creatinine Ratio 10.5 Random Glucose 69 mg/dl Calcium Level 8.2 mg/dl Bedside Glucose 76 mg/dl Assessment and Plan 77 yo male with acute pulmonary edema due to noncompliance with Lasix - Acute on chronic diastolic heart failure: due to noncompliance responded well to Lasix 40mg IV on 01/14, urinated significantly, no output recorded less edema in legs, lungs clear still with some congestion on CXR on 01/15 treated with Lasix 40mg PO, again, responded well with diuresis Cr is stable at 1.8 on exam his lungs are clear, no JVD, no peripheral edema, no orthopnea, no dyspnea on exertion euvolemic, stable for surgery tomorrow - Accelerated HTN: continues to have pressures that are 180-190 systolic last evening he had arterial doppler, no subclavian stenosis, concerns about discrepancies in blood pressure readings he says it is typically 140/70 in the office, admits to some anxiety surrounding surgery, being here increase Lisinopril to 40mg daily, dose this morning, Lopressor 25mg BID, Hydralazine PRN for tomorrow morning, will give Lopressor 25mg in the AM, hold the Lisinopril , hold Digoxin, plan to resume both on 01/18 - DM: continue basal and Novolog, diabetic diet, monitor for hypoglycemia normally on Lantus 30 units BID, will change to 15 units BID starting this evening, can give 15 units in the AM as long as his sugar is > 120 monitor for hypoglycemia in the perioperative setting - Hypothyroidism: Synthroid, stable - Lumbar spinal stenosis: MRI lumbar spine shows worsening spinal stenosis L2/ L3 region plan for surgical correction on Wednesday 01/17 Dr. Brown following DVT proph: Heparin, will discontinue after this evening's dose for surgery tomorrow full code
--- NOTE | 2018-01-16 12:21 | Progress Note ---
Progress Note Date of Service Jan 16, 2018. Progress Note I met this morning with the patient and his family. We again reviewed the updated MRI of the lumbar spine. Clearly it shows worsening of his lumbar spinal stenosis which accounts for his marked decline over the past 6-8 weeks. This point he feels much improved regarding his ability breathing. He still limited with ambulation secondary to leg pain. He would like to proceed with surgery. We will make him n.p.o. after midnight this evening and plan for the scheduled surgery L2-L5 lumbar decompression and fusion on Wednesday. Risks benefits pros cons alternatives again reviewed. All questions addressed.
[2018-01-16] MEDS: RANITIDINE HCL 150 MG TAB PO SCH (20:57)
[2018-01-17] VITALS (13 sets, daily range): BP systolic 111–181; BP diastolic 65–98; PULSE 57–78; TEMP 36.3–36.6; O2SAT 92–95
[2018-01-17] MEDS ORDERED: NURSING VERBAL MED ORDER ONE ×4 (00:30→19:00)
[2018-01-17] MEDS: HydrALAZINE HCL 20 MG/ML VIAL IV. PRN (03:19)
[2018-01-17] MEDS: LEVOTHYROXINE 100 MCG TAB PO SCH (05:51)
[2018-01-17] MEDS: INSULIN ASPART 100 UNITS/ML 3 ML PEN SC SCH ×4 (06:00→21:00)
[2018-01-17] MEDS ORDERED: HydrALAZINE HCL 20 MG/ML VIAL IV. PRN (08:45)
[2018-01-17] MEDS: METOPROLOL TARTRATE 25 MG TAB PO SCH ×2 (08:56→21:24)
[2018-01-17] MEDS: CIPROFLOXACIN 250 MG TAB PO SCH ×2 (08:56→21:25)
[2018-01-17] MEDS: DOCUSATE SODIUM/SENNA 50/8.6MG TAB PO SCH ×2 (08:56→21:26)
--- NOTE | 2018-01-17 09:13 | Hospitalist Progress Note ---
Hospitalist Progress Note Date of Service Jan 17, 2018. Subjective Pt evaluation today including: conversation w/ patient, physical exam, chart review, lab review, review of studies, review of inpatient medication list Patient seen and evaluated. No acute events overnight. Reporting feeling well. Still with back pain and with minimal movement gets radiculopathy into the legs. Today the R side is more bothersome but chronically has b/l radiculopathy. Continues to appear euvolemic. No CP or SOB. Adequately oxygenating on RA. Awaiting surgery with Dr. Brown today Constitutional: No fever, No chills Respiratory: No cough, No shortness of breath Cardiovascular: No chest pain Abdomen: No pain, No nausea, No vomiting, No diarrhea, No constipation Musculoskeletal: No swelling, No calf pain Male : No dysuria Heme: No abnormal bleeding/bruising Medications Current Inpatient Medications Medications (Trade) Dose Ordered Sig/Dianne Route Start Time Stop Time Status Last Admin Dose Admin Acetaminophen (Tylenol Tab) 650 mg Q4H PRN PO 01/14/18 10:30 02/13/18 10:29 Polyethylene (Miralax Powder Packet) 17 gm DAILY PRN PO 01/14/18 11:45 02/13/18 11:44 Ondansetron HCl (Zofran Inj) 4 mg Q6H PRN IV 01/14/18 10:30 02/13/18 10:29 Citalopram Hydrobromide (celeXA TAB) 20 mg QAM PO 01/15/18 09:00 02/14/18 08:59 Future hold 01/16/18 08:59 20 MG Digoxin (Lanoxin Tab) 0.125 mg QAM PO 01/15/18 09:00 02/14/18 08:59 Future hold 01/16/18 09:01 0.125 MG Levothyroxine Sodium (Synthroid Tab) 100 mcg DAILYBB PO 01/15/18 06:00 02/14/18 05:59 01/17/18 05:51 100 MCG Metoprolol Tartrate (Lopressor Tab) 25 mg BID PO 01/14/18 21:00 02/13/18 20:59 01/17/18 08:56 25 MG Oxycodone HCl (Roxicodone Immediate Rel Tab) 5 mg Q6H PRN PO 01/14/18 10:45 01/28/18 10:44 01/16/18 23:29 5 MG Senna/Docusate Sodium (Senokot S Tab) 1 tab BID PO 01/14/18 21:00 02/13/18 20:59 01/17/18 08:56 1 TAB Miscellaneous Information (Order Awaiting Action) 1 ea QS N/A 01/14/18 16:00 02/13/18 15:59 Ranitidine HCl (zANTac TAB) 300 mg HS PO 01/14/18 21:00 02/13/18 20:59 01/16/18 20:57 300 MG Glucose (Glucose 40% Gel) 15-30 GRAMS 15 GRAMS... UD PRN PO 01/14/18 11:45 02/13/18 11:44 Glucose (Glucose Chew Tab) 4-8 Tablets 4 Tabl... UD PRN PO 01/14/18 11:45 02/13/18 11:44 Dextrose (Dextrose 50% 50ML Syringe) 25-50ML OF 50% DW IV FOR... UD PRN IV 01/14/18 11:45 02/13/18 11:44 Glucagon (Glucagon Inj) 1 mg UD PRN SQ 01/14/18 11:45 02/13/18 11:44 Ciprofloxacin (Ciprofloxacin Tab) 250 mg BID PO 01/14/18 21:00 01/19/18 20:59 01/17/18 08:56 250 MG Miscellaneous (Iv Fluids Completed) 1 ea PRN PRN N/A 01/14/18 16:15 01/14/19 16:14 Lisinopril (Zestril Tab) 40 mg QAM PO 01/16/18 09:00 02/14/18 08:59 Future hold 01/16/18 10:16 40 MG Insulin Glargine (Lantus Solostar Pen) 15 units BID SC 01/16/18 21:00 02/13/18 20:59 01/16/18 21:01 15 UNITS Insulin Aspart (novoLOG ASPART) SLIDING SCALE G... Q6 SC 01/17/18 06:00 02/16/18 05:59 Hydralazine HCl (HydrALAZINE INJ) 20 mg Q6 PRN IV. 01/17/18 08:45 02/13/18 11:14 Objective Vital Signs Date Time Temp Pulse Resp B/P (MAP) Pulse Ox O2 Delivery O2 Flow Rate FiO2 01/17/18 09:00 94 Room Air 01/17/18 07:56 36.5 60 16 170/98 (122) 94 Room Air 168/73 (104) 01/17/18 07:35 Room Air 01/17/18 04:30 57 156/70 (98) 93 Room Air 01/17/18 03:17 62 181/91 (121) 01/16/18 23:20 Room Air 01/16/18 23:10 37.0 65 18 165/63 (97) 93 Room Air 01/16/18 20:45 65 162/72 (102) 93 Room Air 01/16/18 16:21 93 Room Air 01/16/18 14:53 36.5 61 18 170/72 (104) 93 Room Air 01/16/18 10:03 Room Air 01/16/18 09:01 68 Physical Exam General Appearance: WD/WN, no apparent distress Eyes: sclerae normal ENT: hearing grossly normal Neck: supple, no JVD, trachea midline Respiratory/Chest: lungs clear, normal breath sounds, no respiratory distress, no accessory muscle use Cardiovascular: regular rate, rhythm, no gallop, no murmur Abdomen: normal bowel sounds, non tender, soft Extremities: no pedal edema, no calf tenderness Neurologic/Psychiatric: alert Skin: normal color, warm/dry Laboratory Results Last 24 Hours Test 01/16/18 12:16 01/16/18 16:54 01/16/18 20:47 01/17/18 05:47 Bedside Glucose 85 mg/dl 176 mg/dl 196 mg/dl 76 mg/dl Assessment and Plan 77 yo male with acute pulmonary edema due to noncompliance with Lasix Acute on Chronic Diastolic CHF 2/2 Non-Compliance - Holding on diuretics at this time pending surgery - will resume pending labs and examination Accelerated HTN: - Digoxin and Lisinopril on hold pending surgery and can be resumed likely tomorrow pending labs - U/S obtained with no subclavian stenosis - obtained due to discrepancies in BP readings in arms - Lopressor 25 mg BID CKD Stage III: STABLE - Continue to monitor and avoid nephrotoxins Recent UTI (as outpatient) - Citrobacter: - Initially treated with Augmentin but had resistance to amoxicillin - has been transitioned to Cipro and due to finish course soon T2DM: - Lantus reduced to 15 units SC BID due to surgery - will monitor and adjust pending dietary intake - Continue SSI Hypothyroidism: STABLE - Synthroid 100 mcg daily Lumbar Spinal Stenosis: Worsening per MRI - Planning for surgical repair today with Dr. Brown DVT Prophylaxis: Heparin on hold 11/26 surgery Code Status: FULL RESUSCITATION Disposition: - PT/OT evaluations after surgery to help with dispo planning - would like to return home with a D/C if possible Continued [facility] stay due to: other (surgery planned today) Discharge planning: uncertain
--- NOTE | 2018-01-17 14:05 | History and Physical ---
History & Physical Date Jan 17, 2018. Chief Complaint Back and leg pain History of Present Illness The patient is a 77 year old male with complaints of back and leg pain Past Medical/Surgical History Medical Problems: (1) Acute on chronic diastolic (congestive) heart failure (2) chf exac, and worsening spinal stenosis Additional History Hepatic Disease: No Endocrine Disorder: No Kidney Disease: No Hypertension: Yes Heart Disease: No Bleeding Tendencies: No Infectious Diseases: No Allergies Coded Allergies: No Known Allergies (Unverified , 01/17/18) Home Medications Scheduled Aspirin (Aspirin Ec), 81 MG PO QPM Citalopram Hydrobromide (Citalopram Hydrobromide), 1 TAB PO QAM Digoxin (Digoxin), 1 TAB PO QAM Furosemide (Lasix), 40 MG PO Q2D Insulin Glargine (Toujeo Solostar), 30 UNITS SQ BID Levothyroxine Sodium (Levothyroxine Sodium), 1 TAB PO QAM Linaclotide (Linzess), 1 CAP PO Q2D Lisinopril (Zestril), 20 MG PO QAM Metoprolol Tartrate (Lopressor) (Lopressor), 25 MG PO BID Ranitidine (Zantac), 300 MG PO HS Sennosides-Docusate Sodium (Stool Softener), 1 TAB PO BID Scheduled PRN Oxycodone Ir (Roxicodone Ir), 5 MG PO Q6H PRN for Pain Physical Examination Skin: warm/dry, no rash Eyes: normal inspection, EOMI, sclerae normal ENT: normal ENT inspection, pharynx normal Head: normocephalic, atraumatic Neck: supple, no adenopathy, trachea midline Respiratory/Chest: lungs clear, normal breath sounds, no respiratory distress Cardiovascular: regular rate, rhythm, no edema, no murmur Abdomen / GI: normal bowel sounds, non tender Back: normal inspection Extremities: normal inspection, normal range of motion Neurologic/Psych: no motor/sensory deficits, alert, normal reflexes, oriented x 3 Diagnosis Multilevel lumbar stenosis Plan of Treatment Lumbar decompression and fusion L2-L5
[2018-01-17] MEDS ORDERED: MIDAZOLAM HCL 1 MG/ML 2ML VIAL ONE (14:13)
[2018-01-17] MEDS ORDERED: FENTANYL CITRATE INJ 50 MCG/1 ML 2 ML VIAL ONE ×2 (14:13→16:15)
[2018-01-17] MEDS ORDERED: BUPIVACAINE/EPINEPHRINE 0.5% MPF 1:200,000 30 ML VIAL ONE (14:18)
[2018-01-17] MEDS ORDERED: BACITRACIN 50000 UNIT VIAL ONE (14:18)
[2018-01-17] MEDS ORDERED: ATROPINE SULFATE 0.1 MG/ML 5ML SYR IV PRN (15:00)
[2018-01-17] MEDS ORDERED: EpHEDrine SULFATE INJ 50 MG/ML AMP IV PRN (15:00)
[2018-01-17] MEDS ORDERED: ONDANSETRON INJ 2 MG/ML 2 ML VIAL IV PRN ×2 (15:00→16:45)
[2018-01-17] MEDS ORDERED: PROPOFOL IV EMULSION 10 MG/ML 20 ML VIAL IV ONE (15:34)
[2018-01-17] MEDS ORDERED: CEFAZOLIN SOD 1 GM VIAL ONE (15:35)
[2018-01-17] MEDS ORDERED: EpHEDrine SULFATE 50MG/5ML SYR ONE (15:35)
[2018-01-17] MEDS ORDERED: ONDANSETRON INJ 2 MG/ML 2 ML VIAL ONE (15:35)
[2018-01-17] MEDS ORDERED: SUCCINYLCHOLINE 100MG/5ML SYR IV ONE (15:35)
[2018-01-17] MEDS ORDERED: DEXAMETHASONE SOD INJ 4 MG/ML VIAL ONE (15:36)
[2018-01-17] MEDS ORDERED: LIDOCAINE HCL 2% 2 ML VIAL (20MG/ML) ONE (15:53)
[2018-01-17] MEDS ORDERED: FLOSEAL HEMOSTATIC MATRIX 10ML TOP ONE (16:20)
[2018-01-17] MEDS ORDERED: NEOSTIGMINE METHYLSULFATE 1 MG/ML 10ML VIAL ONE (16:22)
[2018-01-17] MEDS ORDERED: GLYCOPYRROLATE INJ 0.2 MG/ML VIAL ONE (16:22)
[2018-01-17] MEDS ORDERED: ROCURONIUM BROMIDE 10 MG/ML 5 ML VIAL IV ONE (16:22)
[2018-01-17] MEDS ORDERED: SODIUM CHLORIDE 0.9% 1000ML 1,000 ML IV SCH (16:31)
--- NOTE | 2018-01-17 16:31 | [facility] Operative Report ---
Operative Report Operative Date Jan 17, 2018. Pre-Operative Diagnosis Multilevel lumbar stenosis L2-L5 Post-Operative Diagnosis Multilevel lumbar stenosis L2-L5 Procedure(s) Performed 1. Lumbar decompression medial facetectomies foraminotomies L2-3 L3-4 L4-5. #2 posterior spinal fusion L2-3 L3-4 L4-5. #3 placement posterior segmental instrumentation L3-4 L4-5 L5-S1. #4 placement of locally harvested morselized autograft in the posterior lateral gutters. #5 placement InFUSE collagen sponge, mass graft the posterior lateral gutters. Surgeon Dr. Brown Rn Urgent Care Surgeon(s) James LOW Estimated Blood Loss 150ml Findings Severe spinal stenosis Specimens none Anesthesia Type General Description of Procedure Patient was met with preoperatively case discussed all questions addressed. After informed consent obtained patient was taken back to the operative suite underwent intubation and placed in a prone position on the Harry table on top of the Raudel frame. All bony prominences were well-padded eyes inspected to ensure no external pressure placed upon the. This point the lumbar spine was prepped and draped in normal sterile fashion. Sharp dissection with the assistance of Bovie cautery was performed down to and exposing the lamina and transverse processes of L1-L3 L4 and L5 bilaterally. From a caudal to cephalad fashion complete laminectomy of L4 L3 and L2 was performed addressing severe lateral recess and central stenosis. If this complete pedicle screws were placed at L2 L3-L4-L5 bilaterally with the assistance of fluoroscopy and the appropriately sized tracie placed. Transverse processes of L2 L3-L4-L5 and then burred to subcortical bleeding bone. Infuse collagen sponge mesh graft and locally harvested morselized allograft was placed in the posterior gutters. Cross-link locked into position. 15 round JULISA drain inserted. Incision was then closed with 1 Vicryl fascia 2-0 Vicryl 17 C4 Monocryl for fashion closure Steri-Strips sterile dressings placed patient will continue PACU stable discrete please note Laura Moncada was present throughout the entire procedure involved in patient positioning complex portions of the surgery and fashion closure. I attest to the content of the Intraoperative Record and any orders documented therein. Any exceptions are noted below.
[2018-01-17] MEDS ORDERED: DO NOT ADMINISTER FLU VACCINE PRN (16:45)
[2018-01-17] MEDS ORDERED: MAGNESIUM HYDROXIDE SUSP 30 ML UDC PO PRN (16:45)
[2018-01-17] MEDS ORDERED: BISACODYL 10 MG SUPP PR PRN (16:45)
[2018-01-17] MEDS ORDERED: SOD PHOSPHATE/SOD BIPHOSPHATE ENEMA 132 ML BTL PR PRN (16:45)
[2018-01-17] MEDS ORDERED: LORAZEPAM 0.5 MG TAB PO PRN (16:45)
[2018-01-17] MEDS ORDERED: METOCLOPRAMIDE HCL INJ 5 MG/ML 2 ML VIAL IV PRN (16:45)
[2018-01-17] MEDS ORDERED: PROMETHAZINE HCL INJ 12.5 MG in SODIUM CHLORIDE 0.9% 50ML 50 ML IV PRN (16:45)
[2018-01-17] MEDS ORDERED: NALOXONE HCL 0.4 MG/1 ML VIAL/CARP IV PRN ×2 (16:45)
[2018-01-17] MEDS ORDERED: DO NOT ADMINISTER PNEUMOCOCCAL VACCINE PRN (16:45)
[2018-01-17] MEDS ORDERED: ACETAMINOPHEN IV 100 ML IV PRN (16:45)
[2018-01-17] MEDS ORDERED: hydrOXYzine HCL 25 MG TAB PO PRN (16:45)
[2018-01-17] MEDS ORDERED: ALUMINUM/MAGNESIUM SUSP 30 ML UDC PO PRN (16:45)
[2018-01-17] MEDS ORDERED: FAMOTIDINE 20 MG TAB PO PRN (16:45)
[2018-01-17] MEDS ORDERED: LORAZEPAM INJ 0.5 MG in SYRINGE 0 ML IV PRN (16:45)
--- NOTE | 2018-01-17 16:45 | DIAGNOSTIC IMAGING REPORT ---
LUMBAR SPINE 2 OR 3 VIEW CLINICAL HISTORY: 77 years-old Male presenting with L2-5 DECOMPRESSION/FUSION. TECHNIQUE: 3 fluoroscopic spot image(s) obtained as part of an intraoperative procedure. COMPARISON: MR from 01/14/2018. FINDINGS/IMPRESSION: Bilateral transpedicular screw and tracie fixation of the lumbar spine from L2 to L5. Normal anatomic alignment. Laminectomy defects noted. Please see surgical report for further details. Fluoroscopy dosage (mGy): 24.73. Fluoroscopy time: 26.8 seconds. Number of fluoroscopic spot images: 3. Electronically signed by: Julian Bae M.D. 01/17/2018 4:44 PM Dictated Date/Time: 01/17/2018 4:42 PM
[2018-01-17] MEDS: FENTANYL CITRATE INJ 50 MCG/1 ML 2 ML VIAL IV PRN ×4 (16:59→17:22)
[2018-01-17] MEDS: HYDROmorphone HCL 0.5MG/ML 50 ML CASSETTE IV PRN ×3 (17:01→22:59)
[2018-01-17] MEDS: HYDROmorphone INJ 1 MG/ML SYR IV PRN ×4 (17:29→17:45)
--- NOTE | 2018-01-17 18:48 | Anesthesiology Progress Note ---
Anesthesia Post Op Note Date & Time Jan 17, 2018 at 18:48 Vital Signs Pain Intensity: 4 Vital Signs Past 12 Hours Date Time Temp Pulse Resp B/P (MAP) Pulse Ox O2 Delivery O2 Flow Rate FiO2 01/17/18 17:55 36.5 76 16 143/69 93 Nasal Cannula 4 01/17/18 17:45 36.5 75 16 147/65 93 Nasal Cannula 4 01/17/18 17:35 75 16 150/72 93 Nasal Cannula 4 01/17/18 17:25 77 16 147/71 94 Nasal Cannula 4 01/17/18 17:15 78 16 130/64 93 Nasal Cannula 4 01/17/18 17:05 82 16 125/71 94 Oxymask 15 01/17/18 16:55 89 16 149/61 94 Oxymask 15 01/17/18 16:45 37.3 89 16 163/76 95 Oxymask 15 01/17/18 12:20 60 178/79 (112) 01/17/18 11:41 180/78 (112) 01/17/18 09:00 94 Room Air 01/17/18 07:56 36.5 60 16 170/98 (122) 94 Room Air 168/73 (104) 01/17/18 07:35 Room Air Notes Mental Status: alert / awake / arousable, participated in evaluation Pt Amnestic to Procedure: Yes Nausea / Vomiting: adequately controlled Pain: adequately controlled Airway Patency, RR, SpO2: stable & adequate BP & HR: stable & adequate Hydration State: stable & adequate Anesthetic Complications: no major complications apparent The patient is doing well in recovery with no complaints. He will be going to the floor with continuous pulse oximetry.
[2018-01-17] MEDS: CEFAZOLIN IV 2,000 MG in SYRINGE 0 ML IV SCH (19:03)
[2018-01-17] MEDS: INSULIN GLARGINE SOLOSTAR 100 UNITS/ML 3 ML PEN SC SCH (21:00)
[2018-01-17] MEDS: SODIUM CHLORIDE 0.9% 1000ML 1,000 ML IV SCH (21:06)
[2018-01-17] MEDS: RANITIDINE HCL 150 MG TAB PO SCH (21:25)
[2018-01-17] MEDS: ACETAMINOPHEN 500 MG TAB PO PRN (23:08)
[2018-01-18] VITALS (10 sets, daily range): BP systolic 106–120; BP diastolic 52–79; PULSE 61–80; TEMP 36.5–37.5; O2SAT 89–96
[2018-01-18] MEDS ORDERED: FUROSEMIDE 40 MG TAB PO ONE (00:45)
[2018-01-18] MEDS: CEFAZOLIN IV 2,000 MG in SYRINGE 0 ML IV SCH (01:56)
[2018-01-18] MEDS: SODIUM CHLORIDE 0.9% 1000ML 1,000 ML IV SCH ×2 (03:03→14:32)
[2018-01-18] MEDS: LEVOTHYROXINE 100 MCG TAB PO SCH (05:45)
[2018-01-18] MEDS ORDERED: NURSING VERBAL MED ORDER ONE ×2 (06:30→13:45)
[2018-01-18 07:43] LABS: BASO % 0.2 %; BASO ABS # 0.03 K/uL (0-0.2); EOS % 0.5 %; EOS ABS # 0.06 K/uL (0-0.5); HEMATOCRIT 35.7 % (42-52); HEMOGLOBIN 11.4 g/dL (14.0-18.0); IG# 0.04 K/uL (0.00-0.02); LYMPH % 7.5 %; MEAN CELL VOLUME 86.9 fL (80-100); MEAN CORPUSCULAR HEMOGLOBIN 27.7 pg (25-34); MEAN CORPUSCULAR HGB CONC 31.9 g/dl (32-36); MEAN PLATELET VOLUME 9.9 fL (7.4-10.4); MONO % 14.2 %; MONO ABS # 1.71 K/uL (0.11-0.59); NEUT % 77.3 %; PLATELET COUNT 183 K/uL (130-400); RED CELL DISTRIBUTION WIDTH CV 15.7 % (11.5-14.5); RED CELL DISTRIBUTION WIDTH SD 50.6 fL (36.4-46.3); WHITE BLOOD COUNT 12.04 K/uL (4.8-10.8)
[2018-01-18] MEDS: OXYCODONE HCL IR 5 MG TAB (IMMEDIATE RELEASE) PO PRN ×3 (07:58→15:58)
--- NOTE | 2018-01-18 08:00 | Clinical Documentation Query ---
CLINICAL DOCUMENTATION QUERY 77 yo male admitted with acute diastolic chf and significant elevation in blood pressure. Accelerated HTN is documented. In your clinical opinion is this patient being managed for: ( ) Hypertensive urgency ( x ) keep in the diagnosis of "accelerated HTN " ( ) Other explanation of clinical findings (Please Explain) ( ) Unable to determine (Please Define) ( ) Need to Discuss The medical record reflects the following clinical findings, treatment, and risk factors. Clinical Indicators: As above Treatment: Lisinopril, Lopressor, Hydralazine, Lasix PO Risk Factors: HTN, acute diastolic CHF, medication noncompliance Please clarify and document your clinical opinion in the progress notes and discharge summary. Terms such as "probable", "suspected", "likely", "questionable", "possible", or "still to be ruled out" are acceptable. IF IN AGREEMENT, YOU MUST DOCUMENT ABOVE DIAGNOSTIC STATEMENT IN DAILY PROGRESS NOTES AND DISCHARGE SUMMARY. This document is not part of the patient's record. Thank You, Nano Cotton RN [phone]
[2018-01-18 08:20] LABS: CALCIUM 8.1 mg/dl (8.5-10.1); CREATININE 3.16 mg/dl (0.60-1.40); POTASSIUM 5.2 mmol/L (3.5-5.1)
[2018-01-18] MEDS ORDERED: SODIUM POLYST. SULF SUSP 15G/60ML PO STA (08:32)
[2018-01-18] MEDS: INSULIN ASPART 100 UNITS/ML 3 ML PEN SC SCH ×4 (08:50→21:00)
[2018-01-18] MEDS: CIPROFLOXACIN 250 MG TAB PO SCH ×2 (08:53→21:04)
[2018-01-18] MEDS: METOPROLOL TARTRATE 25 MG TAB PO SCH ×2 (08:53→21:03)
[2018-01-18] MEDS: INSULIN GLARGINE SOLOSTAR 100 UNITS/ML 3 ML PEN SC SCH ×2 (08:55→21:00)
[2018-01-18] MEDS: HYDROmorphone INJ 1 MG/ML SYR IV PRN ×4 (10:19→20:24)
[2018-01-18] MEDS: DIGOXIN 0.125 MG TAB PO SCH (10:23)
[2018-01-18] MEDS: CITALOPRAM 20 MG TAB PO SCH (10:23)
[2018-01-18] MEDS: LISINOPRIL 40 MG TAB PO SCH (10:24)
[2018-01-18] MEDS ORDERED: KETOROLAC TROMETHAMINE 15 MG/ML VIAL IV. PRN (12:15)
--- NOTE | 2018-01-18 12:22 | Progress Note ---
Progress Note Date of Service Jan 18, 2018. Progress Note Patient complaining of significant back pain. He still having some right anterior thigh pain numbness and tingling. This is consistent with his preoperative findings. He was able to ambulate just a few steps today with assistance. On exam he is alert and oriented has reasonable strength testing. Assessment status post lumbar decompression fusion per plan at this time will continue to advance his therapy as tolerated. In light of his profound lower extremity weakness preoperatively he would be a very good candidate for rehab facility upon discharge.
--- NOTE | 2018-01-18 13:36 | Hospitalist Progress Note ---
Hospitalist Progress Note Date of Service Jan 18, 2018. Subjective Pt evaluation today including: conversation w/ patient, physical exam, chart review, lab review, review of studies, review of inpatient medication list Patient seen and evaluated. S/P Lumbar Decompression on 01/17. Patient reporting a significant amount of pain that radiates along anterior thigh and stops at the knee. Reporting medication is working but just not long lasting. Encouraged him to regularly ask for medication as well. Can make adjustments if necessary Tolerating diet without issue. Constitutional: No fever, No chills Respiratory: No cough, No shortness of breath Cardiovascular: No chest pain Abdomen: No pain, No nausea, No vomiting, No diarrhea, No constipation Musculoskeletal: + problem reported (low back pain with radiation down R anterior thigh), No swelling, No calf pain Male : No dysuria Heme: No abnormal bleeding/bruising Skin: No rash Medications Current Inpatient Medications Medications (Trade) Dose Ordered Sig/Dianne Route Start Time Stop Time Status Last Admin Dose Admin Acetaminophen (Tylenol Tab) 650 mg Q4H PRN PO 01/14/18 10:30 02/13/18 10:29 Polyethylene (Miralax Powder Packet) 17 gm DAILY PRN PO 01/14/18 11:45 02/13/18 11:44 Ondansetron HCl (Zofran Inj) 4 mg Q6H PRN IV 01/14/18 10:30 02/13/18 10:29 Citalopram Hydrobromide (celeXA TAB) 20 mg QAM PO 01/15/18 09:00 02/14/18 08:59 Future hold 01/18/18 10:23 20 MG Digoxin (Lanoxin Tab) 0.125 mg QAM PO 01/15/18 09:00 02/14/18 08:59 Future hold 01/18/18 10:23 0.125 MG Levothyroxine Sodium (Synthroid Tab) 100 mcg DAILYBB PO 01/15/18 06:00 02/14/18 05:59 01/18/18 05:45 100 MCG Metoprolol Tartrate (Lopressor Tab) 25 mg BID PO 01/14/18 21:00 02/13/18 20:59 01/18/18 08:53 25 MG Oxycodone HCl (Roxicodone Immediate Rel Tab) 5 mg Q6H PRN PO 01/14/18 10:45 01/28/18 10:44 01/16/18 23:29 5 MG Miscellaneous Information (Order Awaiting Action) 1 ea QS N/A 01/14/18 16:00 02/13/18 15:59 Ranitidine HCl (zANTac TAB) 300 mg HS PO 01/14/18 21:00 02/13/18 20:59 01/17/18 21:25 300 MG Glucose (Glucose 40% Gel) 15-30 GRAMS 15 GRAMS... UD PRN PO 01/14/18 11:45 02/13/18 11:44 Glucose (Glucose Chew Tab) 4-8 Tablets 4 Tabl... UD PRN PO 01/14/18 11:45 02/13/18 11:44 Dextrose (Dextrose 50% 50ML Syringe) 25-50ML OF 50% DW IV FOR... UD PRN IV 01/14/18 11:45 02/13/18 11:44 Glucagon (Glucagon Inj) 1 mg UD PRN SQ 01/14/18 11:45 02/13/18 11:44 Ciprofloxacin (Ciprofloxacin Tab) 250 mg BID PO 01/14/18 21:00 01/19/18 20:59 01/18/18 08:53 250 MG Miscellaneous (Iv Fluids Completed) 1 ea PRN PRN N/A 01/14/18 16:15 01/14/19 16:14 Lisinopril (Zestril Tab) 40 mg QAM PO 01/16/18 09:00 02/14/18 08:59 Future hold 01/18/18 10:24 40 MG Insulin Glargine (Lantus Solostar Pen) 15 units BID SC 01/16/18 21:00 02/13/18 20:59 Future hold 01/18/18 08:55 15 UNITS Hydralazine HCl (HydrALAZINE INJ) 20 mg Q6 PRN IV. 01/17/18 08:45 02/13/18 11:14 Promethazine HCl 12.5 mg/Sodium Chloride 50.5 ml @ 202 mls/hr Q6H PRN IV 01/17/18 16:45 02/16/18 16:44 Ondansetron HCl (Zofran Inj) 4 mg Q6H PRN IV 01/17/18 16:45 02/16/18 16:44 Metoclopramide HCl (Reglan Inj) 10 mg Q6H PRN IV 01/17/18 16:45 02/16/18 16:44 Lorazepam (Ativan Tab) 0.5 mg Q8H PRN PO 01/17/18 16:45 02/16/18 16:44 Lorazepam 0.5 mg/ Syringe 0.25 ml @ 1 mls/min Q8H PRN IV 01/17/18 16:45 02/16/18 16:44 Pneumococcal Polysaccharide Vaccine 1 ea PRN PRN N/A 01/17/18 16:45 02/16/18 16:44 Influenza Virus Vacc Triv Types A&B 1 ea PRN PRN N/A 01/17/18 16:45 02/16/18 16:44 Polyethylene (Miralax Powder Packet) 17 gm Q6 PO 01/19/18 06:00 02/18/18 05:59 Bisacodyl (Dulcolax Supp) 10 mg DAILY PRN [place] 01/17/18 16:45 02/16/18 16:44 Magnesium Hydroxide (Milk Of Magnesia Susp) 30 ml DAILY PRN PO 01/17/18 16:45 02/16/18 16:44 Hydromorphone HCl (Dilaudid Inj) 0.5-1mg prn moder... Q3H PRN IV 01/18/18 06:01 02/01/18 06:00 01/18/18 10:19 1 MG Oxycodone HCl (Roxicodone Immediate Rel Tab) 5-10mg prn moderate to sev... Q4H PRN PO 01/18/18 06:00 02/01/18 05:59 01/18/18 12:00 10 MG Acetaminophen (Tylenol Tab) 1,000 mg Q8H PRN PO 01/17/18 16:45 02/16/18 16:44 01/17/18 23:08 1,000 MG Acetaminophen 100 ml @ 400 mls/hr Q8H PRN IV 01/17/18 16:45 02/16/18 16:44 Naloxone HCl (Narcan Inj) 0.1 mg Q5M PRN IV 01/17/18 16:45 02/16/18 16:44 Senna/Docusate Sodium (Senokot S Tab) 2 tab HS PO 01/17/18 21:00 02/16/18 20:59 01/17/18 21:26 2 TAB Sodium Biphosphate/ Sodium Phosphate (Fleet Enema) 132 ml ONE PRN [place] 01/17/18 16:45 02/16/18 16:44 Hydroxyzine HCl (Vistaril Tab) 25 mg Q8H PRN PO 01/17/18 16:45 02/16/18 16:44 Al Hydroxide/Mg Hydroxide (Maalox Susp) 30 ml Q6H PRN PO 01/17/18 16:45 02/16/18 16:44 Famotidine (Pepcid Tab) 20 mg Q12 PRN PO 01/17/18 16:45 02/16/18 16:44 Diphenhydramine HCl (Benadryl Cap) 25 mg Q6H PRN PO 01/17/18 16:45 02/16/18 16:44 Insulin Aspart (novoLOG ASPART) SLIDING SCALE G... ACHS SC 01/17/18 21:00 02/16/18 20:59 Ketorolac Tromethamine (Toradol Inj) 15 mg Q6H PRN IV. 01/18/18 12:15 01/23/18 12:14 Sodium Chloride 1,000 ml @ 100 mls/hr Q10H IV 01/18/18 13:45 02/17/18 13:44 Objective Vital Signs Date Time Temp Pulse Resp B/P (MAP) Pulse Ox O2 Delivery O2 Flow Rate FiO2 01/18/18 11:37 36.9 61 19 119/57 (77) 96 Nasal Cannula 2.0 01/18/18 10:23 62 01/18/18 08:31 Nasal Cannula 2.0 01/18/18 07:07 36.6 63 20 113/58 (76) 95 Nasal Cannula 2.0 01/18/18 05:46 62 106/52 (70) 95 Nasal Cannula 2.0 01/18/18 04:23 66 92 Nasal Cannula 2.0 01/18/18 04:22 62 89 Room Air 01/18/18 03:58 36.5 62 16 116/66 (83) 95 Nasal Cannula 2.0 01/17/18 23:20 36.4 72 20 134/66 (88) 92 Nasal Cannula 2.0 01/17/18 23:10 Nasal Cannula 2.0 01/17/18 22:34 94 Nasal Cannula 2.0 01/17/18 21:14 36.5 78 18 111/66 (81) 93 01/17/18 20:07 36.3 77 18 116/65 (82) 95 4.0 01/17/18 19:12 36.5 71 18 142/71 (94) 94 Nasal Cannula 4.0 01/17/18 18:40 36.4 12 138/71 (93) 94 Nasal Cannula 4.0 01/17/18 18:15 Nasal Cannula 4.0 01/17/18 18:15 Nasal Cannula 4.0 01/17/18 18:15 36.6 77 12 153/72 (99) 94 Nasal Cannula 4.0 01/17/18 17:55 36.5 76 16 143/69 93 Nasal Cannula 4 01/17/18 17:45 36.5 75 16 147/65 93 Nasal Cannula 4 01/17/18 17:35 75 16 150/72 93 Nasal Cannula 4 01/17/18 17:25 77 16 147/71 94 Nasal Cannula 4 01/17/18 17:15 78 16 130/64 93 Nasal Cannula 4 01/17/18 17:05 82 16 125/71 94 Oxymask 15 01/17/18 16:55 89 16 149/61 94 Oxymask 15 01/17/18 16:45 37.3 89 16 163/76 95 Oxymask 15 Physical Exam General Appearance: WD/WN, no apparent distress Eyes: sclerae normal ENT: hearing grossly normal Neck: supple, no JVD, trachea midline Respiratory/Chest: lungs clear, no respiratory distress, no accessory muscle use Cardiovascular: regular rate, rhythm, no gallop, no murmur Abdomen: normal bowel sounds, non tender, soft Extremities: no pedal edema, no calf tenderness, normal capillary refill Neurologic/Psychiatric: no motor/sensory deficits (limited movement 2/2 pain), alert, oriented x 3 Skin: normal color, warm/dry Laboratory Results Last 24 Hours Test 01/17/18 13:13 01/17/18 17:25 01/17/18 20:33 01/18/18 05:43 Bedside Glucose 82 mg/dl 123 mg/dl 145 mg/dl 121 mg/dl Test 01/18/18 07:21 01/18/18 08:05 01/18/18 12:13 White Blood Count 12.04 K/uL Red Blood Count 4.11 M/uL Hemoglobin 11.4 g/dL Hematocrit 35.7 % Mean Corpuscular Volume 86.9 fL Mean Corpuscular Hemoglobin 27.7 pg Mean Corpuscular Hemoglobin Concent 31.9 g/dl Platelet Count 183 K/uL Mean Platelet Volume 9.9 fL Neutrophils (%) (Auto) 77.3 % Lymphocytes (%) (Auto) 7.5 % Monocytes (%) (Auto) 14.2 % Eosinophils (%) (Auto) 0.5 % Basophils (%) (Auto) 0.2 % Neutrophils # (Auto) 9.30 K/uL Lymphocytes # (Auto) 0.90 K/uL Monocytes # (Auto) 1.71 K/uL Eosinophils # (Auto) 0.06 K/uL Basophils # (Auto) 0.03 K/uL RDW Standard Deviation 50.6 fL RDW Coefficient of Variation 15.7 % Immature Granulocyte % (Auto) 0.3 % Immature Granulocyte # (Auto) 0.04 K/uL Sodium Level 139 mmol/L Potassium Level 5.2 mmol/L Chloride Level 108 mmol/L Carbon Dioxide Level 25 mmol/L Anion Gap 6.0 mmol/L Blood Urea Nitrogen 27 mg/dl Creatinine 3.16 mg/dl Est Creatinine Clear Calc Drug Dose 22.7 ml/min Estimated GFR () 20.8 Estimated GFR (Non- 18.0 BUN/Creatinine Ratio 8.4 Random Glucose 116 mg/dl Calcium Level 8.1 mg/dl Bedside Glucose 107 mg/dl 110 mg/dl Assessment and Plan 77 yo male with acute pulmonary edema due to noncompliance with Lasix Acute on Chronic Diastolic CHF 2/2 Non-Compliance: STABLE - Continue to hold diuretics 2/2 TANNER - gentle hydration and careful monitoring of fluid status Accelerated HTN: - Digoxin resumed and Lisinopril on hold - U/S obtained with no subclavian stenosis - obtained due to discrepancies in BP readings in arms - Lopressor 25 mg BID TANNER on CKD Stage III: STABLE - Cr increased to 3.16 - had fluids after surgery and Lasix overnight - will obtain F/U labs this afternoon and adjust as necessary pending labs -- Patient largely appears euvolemic at this time but did have some hypoxia last night Recent UTI (as outpatient) - Citrobacter: RESOLVED - Initially treated with Augmentin but had resistance to amoxicillin - has been transitioned to Cipro and due to finish course soon T2DM: - Will continue Lantus at reduced dose of 15 units SC BID - sugars stable and will continue to monitor intake Hypothyroidism: STABLE - Synthroid 100 mcg daily Lumbar Spinal Stenosis S/P Decompression: - Reporting significant pain today which pain meds helping but not completely sustaining - Will recommend good bowel regimen - reports last BM was yesterday - Dr. Brown following - appreciate recommendations DVT Prophylaxis: Heparin on hold 11/26 surgery Code Status: FULL RESUSCITATION Disposition: - PT/OT evaluations - patient to discuss with about possible rehab Continued [facility] stay due to: ambulation difficulties Discharge planning: uncertain
[2018-01-18 14:36] LABS: CALCIUM 8.1 mg/dl (8.5-10.1); CREATININE 3.68 mg/dl (0.60-1.40)
[2018-01-18] MEDS ORDERED: OXYCODONE HCL IR 5 MG TAB (IMMEDIATE RELEASE) PO PRN (16:45)
[2018-01-18] MEDS: OXYCODONE HCL 10 MG TABCR (OXYCONTIN) PO SCH (16:51)
--- NOTE | 2018-01-18 17:29 | DIAGNOSTIC IMAGING REPORT ---
(RENAL)RETROPERITON COMP HISTORY: Renal failure acute on chronic failure COMPARISON: None. FINDINGS: Right kidney: Maximum dimension 10 cm. No evidence for hydronephrosis. Normal corticomedullary differentiation and cortical thickness. Left kidney: Maximum dimension 12.2 cm. No evidence for hydronephrosis. Normal corticomedullary differentiation and cortical thickness. Bladder: No bladder wall thickening. The bilateral ureteral jets were identified. IMPRESSION: Normal renal ultrasound. The above report was generated using voice recognition software. It may contain grammatical, syntax or spelling errors. Electronically signed by: Isael Calderon M.D. 01/18/2018 5:27 PM Dictated Date/Time: 01/18/2018 5:27 PM
[2018-01-18] MEDS: DOCUSATE SODIUM/SENNA 50/8.6MG TAB PO SCH (21:03)
[2018-01-18] MEDS: RANITIDINE HCL 150 MG TAB PO SCH (21:03)
[2018-01-19] MEDS: HYDROmorphone INJ 1 MG/ML SYR IV PRN ×3 (00:23→08:57)
[2018-01-19] MEDS: SODIUM CHLORIDE 0.9% 1000ML 1,000 ML IV SCH ×5 (00:23→23:45)
[2018-01-19] MEDS: OXYCODONE HCL 10 MG TABCR (OXYCONTIN) PO SCH ×2 (05:30→17:04)
[2018-01-19] MEDS: POLYETHYLENE (MIRALAX) 17 GM PACK PO SCH ×4 (05:35→23:47)
[2018-01-19] MEDS: LEVOTHYROXINE 100 MCG TAB PO SCH (05:35)
[2018-01-19 06:42] LABS: HEMATOCRIT 34.9 % (42-52); HEMOGLOBIN 10.8 g/dL (14.0-18.0); MEAN CELL VOLUME 87.9 fL (80-100); MEAN CORPUSCULAR HEMOGLOBIN 27.2 pg (25-34); MEAN CORPUSCULAR HGB CONC 30.9 g/dl (32-36); MEAN PLATELET VOLUME 10.2 fL (7.4-10.4); PLATELET COUNT 158 K/uL (130-400); RED CELL DISTRIBUTION WIDTH CV 16.1 % (11.5-14.5); RED CELL DISTRIBUTION WIDTH SD 52.1 fL (36.4-46.3); WHITE BLOOD COUNT 13.89 K/uL (4.8-10.8)
[2018-01-19 07:02] LABS: CALCIUM 8.1 mg/dl (8.5-10.1); CREATININE 4.86 mg/dl (0.60-1.40)
[2018-01-19] MEDS ORDERED: SODIUM CHLORIDE 0.9% 1000ML 500 ML IV ONE (07:30)
[2018-01-19 07:43] VITALS: BP 142/78; PULSE 84; TEMP 37.3; O2SAT 93
[2018-01-19 07:45] LABS: POTASSIUM 5.1 mmol/L (3.5-5.1)
[2018-01-19 07:59] VITALS: O2SAT 93
[2018-01-19] MEDS: INSULIN ASPART 100 UNITS/ML 3 ML PEN SC SCH ×4 (09:00→21:39)
--- NOTE | 2018-01-19 09:09 | Progress Note ---
Progress Note Date of Service Jan 19, 2018. Progress Note Patient still complaining of significant back pain. He describes leg weakness. He has not progressed with therapy yet today. On exam I am able to elicit reasonable strength testing lower extremities. He does appear uncomfortable. Assessment status post multilevel lumbar decompression fusion per plan at this time will certainly would like to encourage him to begin transitions today to the chair and hopefully begin walking. Ultimately he is an excellent candidate for rehab.
[2018-01-19] MEDS: CITALOPRAM 20 MG TAB PO SCH (09:31)
[2018-01-19] MEDS: CIPROFLOXACIN 250 MG TAB PO SCH (09:32)
[2018-01-19] MEDS: DIGOXIN 0.125 MG TAB PO SCH (09:33)
[2018-01-19] MEDS: METOPROLOL TARTRATE 25 MG TAB PO SCH ×2 (09:34→21:38)
[2018-01-19] MEDS: INSULIN GLARGINE SOLOSTAR 100 UNITS/ML 3 ML PEN SC SCH ×2 (09:44→21:39)
[2018-01-19 10:23] LABS: PHOSPHORUS 5.7 mg/dl (2.5-4.9)
[2018-01-19] MEDS ORDERED: FUROSEMIDE IV ONE ×2 (11:00→23:00)
[2018-01-19] MEDS: OXYCODONE HCL IR 5 MG TAB (IMMEDIATE RELEASE) PO PRN ×2 (11:39→15:47)
[2018-01-19] MEDS ORDERED: RXC5 PO (12:11)
--- NOTE | 2018-01-19 12:12 | Discharge Instructions ---
Discharge Instructions Date of Service Jan 19, 2018. Admission Reason for Admission: Chf Exac, And Worsening Spinal Stenosis Discharge Discharge Diagnosis / Problem: lumbar stenosis Discharge Goals Goal(s): Improve function Activity Recommendations Activity Limitations: per Instructions/Follow-up section . Instructions / Follow-Up Instructions / Follow-Up ACTIVITY RECOMMENDATIONS: SELF CARE INSTRUCTIONS AFTER THORACIC/LUMBAR FUSIONS 1. You may walk to your tolerance. It is good exercise for your legs and back. Expect some back and intermittent leg aches and pains. 2. You may perform "counter-top" level activities (make a sandwich, jessie with a project, etc.). 3. No bending or lifting of more than 10 pounds or back twisting of any nature (roll like a log when turning in bed). 4. You may ride in a car for 20-30 minutes at a time. No driving until after your first visit with your doctor. 5. Frequent changes of position and restricting sitting to 30 minutes at a time will help limit the amount of back spasms and stiffness you may experience. 6. You may discontinue the use of ambulatory aids (cane, crutches, etc.) once your strength and confidence allow. 7. You may engineering job titles the shower and let water strike your incision when you arrive home at least once daily. Do not take a tub bath, sit in a hot tub or go into a swimming pool until after your first recheck in the office. SPECIAL CARE INSTRUCTIONS: VERY IMPORTANT TO READ AND REVIEW A. Your surgical incision has been closed with a cosmetic suture under the skin that will dissolve in about 6 weeks. In 14 days, you can use a pair of clean scissors and cut the suture that is left outside of the skin at the ends of your incision. 1. The small skin tapes can be removed 7 days after surgery if they have not fallen off by that point. 2. You may keep the wound open to air as much as possible to promote healing after post-op day number 5 unless told otherwise by your doctor. 3. If you think the wound looks like it is becoming infected (redness or worsening drainage) and/or you are experiencing fever, chill or worsening back pain and muscle spasms, contact the office so that we may evaluate you as soon as possible. B. Complications are uncommon, but please contact us if you have any signs or symptoms of: 1. wound infection (fever higher than 102.5 degrees F, redness, separation of wound, drainage, or increasing pain from the incision) 2. blood clots in legs (pain, swelling, redness and warmth in legs) 3. urinary tract infection (fever higher than 102.5 degrees F, burning upon urination or increased frequency of urination) 4. nerve problems (inability to walk on your toes or heels, numbness, loss of bowel or bladder control) 5. any other symptoms that concern you C. Please call the office at if you have any concerns or questions about your operation or recovery. D. No smoking! Smoking drastically decreases the chance of a solid fusion. E. Do not take any anti-inflammatory medications (Indocin, Advil, Motrin, Aspirin, Naprosyn, etc.) as these may inhibit the chance of a solid fusion. Tylenol is okay to take for pain. MANAGING PAIN AFTER SPINAL SURGERY 1. Narcotic medication is intended for short-term use and will be provided for surgical pain. Surgical pain usually lasts for a period of 4-6 weeks. Narcotic medication includes Percocet, Vicodin, Darvocet, Tylenol #3 or Lortab. 2. Longer-term pain is more appropriately treated with non-narcotic medication such as Tylenol ES. 3. Muscle spasm is not appropriately treated with narcotics. Muscle relaxers such as Soma, Flexeril or Skelaxin can be used along with Tylenol ES. 4. Remember that we all live with some "aches and pains". This is not unusual or uncommon after an injury or as we get older. a. Back pain is expected and may include muscle spasms for 4 to 6 weeks after surgery. The pain should gradually improve. If the pain worsens for no apparent reason, please contact the office. b. Intermittent leg pain may also be experienced and should not be concerned about unless it worsens for no apparent reason. If so, please contact the office. 5. We will provide appropriate medication within the normal guidelines of their prescribed use. We will also be very cautious and aware of potential abuse and extended duration of patients' medication needs. a. Pain medications are for your comfort and to assist with sleep and rest so that the tissue can heal. They are not provided in order to return to normal activity and should not be used through the day. To do so or worsening pain at night can result from ongoing tissue damage and development of tolerance to the prescribed medicine. 6. Please allow 2-3 days to process refills. Prescriptions will not be mailed but must be picked up at the office. FOLLOW UP VISIT: Keep your scheduled follow-up appointment. Any questions, please call the office at . Current Hospital Diet Patient's current hospital diet: AHA Diet (Heart Healthy), Diabetes Type 2 Diet Discharge Diet Recommended Diet: Regular Diet Procedures Procedures Performed: 1. Lumbar decompression medial facetectomies foraminotomies L2-3 L3-4 L4-5. #2 posterior spinal fusion L2-3 L3-4 L4-5. #3 placement posterior segmental instrumentation L3-4 L4-5 L5-S1. #4 placement of locally harvested morselized autograft in the posterior lateral gutters. #5 placement InFUSE collagen sponge, mass graft the posterior lateral gutters. Pending Studies Studies pending at discharge: no Medical Emergencies . Who to Call and When: Medical Emergencies: If at any time you feel your situation is an emergency, please call 911 immediately. . Non-Emergent Contact Non-Emergency issues call your: Primary Care Provider . "Provider Documentation" section prepared by Praveen Brown. .
--- NOTE | 2018-01-19 12:29 | Nephrology Consultation ---
Nephrology Consultation Date & Providers Date of Consultation: Jan 19, 2018. Primary Care Provider: Iam Nicholas M.D. Referring Provider: Reason for Consultation Evaluation and management for acute kidney injury. History of Present Illness Mr. Cardoza is a 77-year-old gentlemen with past medical history significant for hypertension, diabetes and stage 3 chronic kidney disease admitted to the hospital for elective back surgery for spinal stenosis. Nephrologic consult was requested as patient developed progressive renal impairment. Electronic medical records including labs and imaging are reviewed in detail during patient 's Visit. Mr. Cardoza has stage 3 chronic kidney disease baseline creatinine has been 1.7 -1.8. Chronic kidney disease most likely secondary to diabetic nephropathy. Has low grade proteinuria and microscopic hematuria. Renal ultrasound during this admission is unremarkable. His renal function was at baseline on admission however over last 2 days renal function rapidly worsened creatinine was 3.5 yesterday which worsened to 4.8 this morning. Overnight has been anuric. He was given IV fluid bolus without any improvement in urine output. He has chronic lower extremity edema and at home he was suppose to be on Lasix 40 mg every other day however several days prior to his admission he stopped taking Lasix as he was getting tired of nocturia. On admission he was found to be volume overloaded, surgery was postponed and he was started on IV Lasix with improvement in volume status. He had laminectomy on 01/17/2018. He received Toradol as an analgesic. Yesterday as he was found to have worsening of renal function, Toradol and Lasix was discontinued however renal function progressively worsened. Allergies Coded Allergies: No Known Allergies (Unverified , 01/17/18) Inpatient Medications Current Inpatient Medications Medications (Trade) Dose Ordered Sig/Dianne Route Start Time Stop Time Status Last Admin Dose Admin Acetaminophen (Tylenol Tab) 650 mg Q4H PRN PO 01/14/18 10:30 02/13/18 10:29 Polyethylene (Miralax Powder Packet) 17 gm DAILY PRN PO 01/14/18 11:45 02/13/18 11:44 Ondansetron HCl (Zofran Inj) 4 mg Q6H PRN IV 01/14/18 10:30 02/13/18 10:29 Citalopram Hydrobromide (celeXA TAB) 20 mg QAM PO 3/24/18 09:00 02/14/18 08:59 Future hold 01/18/18 10:23 20 MG Digoxin (Lanoxin Tab) 0.125 mg QAM PO 01/15/18 09:00 02/14/18 08:59 Future hold 01/18/18 10:23 0.125 MG Levothyroxine Sodium (Synthroid Tab) 100 mcg DAILYBB PO 01/15/18 06:00 02/14/18 05:59 01/19/18 05:35 100 MCG Metoprolol Tartrate (Lopressor Tab) 25 mg BID PO 01/14/18 21:00 02/13/18 20:59 01/18/18 21:03 25 MG Miscellaneous Information (Order Awaiting Action) 1 ea QS N/A 01/14/18 16:00 02/13/18 15:59 Ranitidine HCl (zANTac TAB) 300 mg HS PO 01/14/18 21:00 02/13/18 20:59 01/18/18 21:03 300 MG Glucose (Glucose 40% Gel) 15-30 GRAMS 15 GRAMS... UD PRN PO 01/14/18 11:45 02/13/18 11:44 Glucose (Glucose Chew Tab) 4-8 Tablets 4 Tabl... UD PRN PO 01/14/18 11:45 02/13/18 11:44 Dextrose (Dextrose 50% 50ML Syringe) 25-50ML OF 50% DW IV FOR... UD PRN IV 01/14/18 11:45 02/13/18 11:44 Glucagon (Glucagon Inj) 1 mg UD PRN SQ 01/14/18 11:45 02/13/18 11:44 Ciprofloxacin (Ciprofloxacin Tab) 250 mg BID PO 01/14/18 21:00 01/19/18 20:59 01/18/18 21:04 250 MG Miscellaneous (Iv Fluids Completed) 1 ea PRN PRN N/A 01/14/18 16:15 01/14/19 16:14 Insulin Glargine (Lantus Solostar Pen) 15 units BID SC 01/16/18 21:00 02/13/18 20:59 Future hold 01/18/18 08:55 15 UNITS Hydralazine HCl (HydrALAZINE INJ) 20 mg Q6 PRN IV. 01/17/18 08:45 02/13/18 11:14 Promethazine HCl 12.5 mg/Sodium Chloride 50.5 ml @ 202 mls/hr Q6H PRN IV 01/17/18 16:45 02/16/18 16:44 Ondansetron HCl (Zofran Inj) 4 mg Q6H PRN IV 01/17/18 16:45 02/16/18 16:44 Metoclopramide HCl (Reglan Inj) 10 mg Q6H PRN IV 01/17/18 16:45 02/16/18 16:44 Lorazepam (Ativan Tab) 0.5 mg Q8H PRN PO 01/17/18 16:45 02/16/18 16:44 Lorazepam 0.5 mg/ Syringe 0.25 ml @ 1 mls/min Q8H PRN IV 01/17/18 16:45 02/16/18 16:44 Pneumococcal Polysaccharide Vaccine 1 ea PRN PRN N/A 01/17/18 16:45 02/16/18 16:44 Influenza Virus Vacc Triv Types A&B 1 ea PRN PRN N/A 01/17/18 16:45 02/16/18 16:44 Polyethylene (Miralax Powder Packet) 17 gm Q6 PO 01/19/18 06:00 02/18/18 05:59 01/19/18 05:35 17 GM Bisacodyl (Dulcolax Supp) 10 mg DAILY PRN MA 01/17/18 16:45 02/16/18 16:44 Magnesium Hydroxide (Milk Of Magnesia Susp) 30 ml DAILY PRN PO 01/17/18 16:45 02/16/18 16:44 Acetaminophen (Tylenol Tab) 1,000 mg Q8H PRN PO 01/17/18 16:45 02/16/18 16:44 01/17/18 23:08 1,000 MG Acetaminophen 100 ml @ 400 mls/hr Q8H PRN IV 01/17/18 16:45 02/16/18 16:44 Naloxone HCl (Narcan Inj) 0.1 mg Q5M PRN IV 01/17/18 16:45 02/16/18 16:44 Senna/Docusate Sodium (Senokot S Tab) 2 tab HS PO 01/17/18 21:00 02/16/18 20:59 01/18/18 21:03 2 TAB Sodium Biphosphate/ Sodium Phosphate (Fleet Enema) 132 ml ONE PRN MA 01/17/18 16:45 02/16/18 16:44 Hydroxyzine HCl (Vistaril Tab) 25 mg Q8H PRN PO 01/17/18 16:45 02/16/18 16:44 Al Hydroxide/Mg Hydroxide (Maalox Susp) 30 ml Q6H PRN PO 01/17/18 16:45 02/16/18 16:44 Famotidine (Pepcid Tab) 20 mg Q12 PRN PO 01/17/18 16:45 02/16/18 16:44 Diphenhydramine HCl (Benadryl Cap) 25 mg Q6H PRN PO 01/17/18 16:45 02/16/18 16:44 Insulin Aspart (novoLOG ASPART) SLIDING SCALE G... ACHS SC 01/17/18 21:00 02/16/18 20:59 Sodium Chloride 1,000 ml @ 200 mls/hr Q5H IV 01/18/18 13:45 02/17/18 13:44 01/19/18 00:23 100 MLS/HR Hydromorphone HCl (Dilaudid Inj) 0.5-1mg prn moder... 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 Pertinent positives are noted above. All other systems are negative. Physical Exam Date Time Temp Pulse Resp B/P (MAP) Pulse Ox O2 Delivery O2 Flow Rate FiO2 01/19/18 00:10 Nasal Cannula 2.0 01/18/18 22:52 37.5 61 16 120/66 (84) 96 Nasal Cannula 2.0 01/18/18 21:00 37.3 80 120/79 (93) 92 Nasal Cannula 2.0 01/18/18 15:55 Nasal Cannula 2.0 01/18/18 15:04 36.9 70 18 120/64 (82) 95 Nasal Cannula 2.0 01/18/18 13:15 96 Nasal Cannula 2.0 01/18/18 11:37 36.9 61 19 119/57 (77) 96 Nasal Cannula 2.0 01/18/18 10:23 62 01/18/18 08:31 Nasal Cannula 2.0 GENERAL:elderly male, AAA x 3, pleasant, healthy-appearing, not in any distress. HEENT: Atraumatic, normocephalic. NECK: Supple, no JVD, no carotid bruit appreciated. ENT: No sinus tenderness MOUTH and THROAT: Moist oral mucosa, no oral ulcer or pharyngeal erythema RESPIRATORY: Normal breathing efforts, no accessory muscle use, clear to auscultation bilaterally, no wheezes or rales. CARDIOVASCULAR: S1, S2 normal, rate rhythm regular. ABDOMEN: Soft, nontender, positive bowel sound. MUSCULOSKELETAL: No CVA tenderness. No joint swelling, erythema or tenderness. Normal range of motion. SKIN: No skin rash EXTREMITY: No lower extremity edema NEURO: No gross focal neurological deficit, speech fluent. PSYCHIATRY: Normal mood and judgment Laboratory Results Last 24 Hours Test 01/18/18 08:05 01/18/18 12:13 01/18/18 13:45 01/18/18 17:44 Bedside Glucose 107 mg/dl 110 mg/dl 104 mg/dl Sodium Level 139 mmol/L Potassium Level 5.0 mmol/L Chloride Level 106 mmol/L Carbon Dioxide Level 26 mmol/L Anion Gap 7.0 mmol/L Blood Urea Nitrogen 32 mg/dl Creatinine 3.68 mg/dl Est Creatinine Clear Calc Drug Dose 19.5 ml/min Estimated GFR () 17.3 Estimated GFR (Non- 15.0 BUN/Creatinine Ratio 8.6 Random Glucose 114 mg/dl Calcium Level 8.1 mg/dl Test 01/18/18 20:18 01/19/18 00:30 01/19/18 06:01 01/19/18 07:18 Bedside Glucose 111 mg/dl Urine Color DK YELLOW Urine Appearance TURBID Urine pH 5.0 Urine Specific [place] 1.025 Urine Protein 1+ Urine Glucose (UA) NEG Urine Ketones TRACE Urine Occult Blood 2+ Urine Nitrite NEG Urine Bilirubin NEG Urine Urobilinogen NEG Urine Leukocyte Esterase MODERATE Urine WBC (Auto) >30 /hpf Urine RBC (Auto) 0-4 /hpf Urine Hyaline Casts (Auto) 10-30 /lpf Urine Epithelial Cells (Auto) 10-20 /lpf Urine Bacteria (Auto) NEG Urine Yeast (Auto) White Blood Count 13.89 K/uL Red Blood Count 3.97 M/uL Hemoglobin 10.8 g/dL Hematocrit 34.9 % Mean Corpuscular Volume 87.9 fL Mean Corpuscular Hemoglobin 27.2 pg Mean Corpuscular Hemoglobin Concent 30.9 g/dl RDW Standard Deviation 52.1 fL RDW Coefficient of Variation 16.1 % Platelet Count 158 K/uL Mean Platelet Volume 10.2 fL Nucleated RBC Absolute Count (auto) 0.10 K/uL Nucleated Red Blood Cells % 0.7 % Sodium Level 138 mmol/L Potassium Level mmol/L Chloride Level 107 mmol/L Carbon Dioxide Level 24 mmol/L Anion Gap 8.0 mmol/L Blood Urea Nitrogen 39 mg/dl Creatinine 4.86 mg/dl Est Creatinine Clear Calc Drug Dose 14.8 ml/min Estimated GFR () 12.4 Estimated GFR (Non- 10.7 BUN/Creatinine Ratio 8.1 Random Glucose 101 mg/dl Calcium Level 8.1 mg/dl Magnesium Level mg/dl Impression 77-year-old gentlemen with stage 3 chronic kidney disease baseline creatinine around 1.7, admitted to the hospital for the laminectomy. Post surgery he was found to have acute kidney injury creatinine was 3.5 which progressively worsened to 3.8 this morning. He became anuric. Electrolyte currently remain acceptable. He was on Lasix and Toradol which was discontinued. Urinalysis positive for hematuria, proteinuria and pyuria. Renal ultrasound unremarkable. No significant hypotensive episode. Differentials include hemodynamically mediated ATN, acute interstitial nephritis or rapidly progressive glomerulonephritis. Recommendations --Will give a trial of Lasix 160 mg IV x1 dose --check electrolyte and renal function the afternoon --if patient remained anuric and renal function progressively worsen, may need to start on renal replacement therapy in next 24-48 hours however no acute indication at this time --will start workup with serological study --considering patient's recent back surgery, would hold off on renal biopsy at this point however eventually may need to consider if no renal recovery and noninvasive workup unremarkable --discussed in detail with pts daughter Carol Madrid ) Thank you for allowing me to participate in your patient's care. It was a pleasure to see Mr. Gonsalez
--- NOTE | 2018-01-19 13:48 | Hospitalist Progress Note ---
Hospitalist Progress Note Date of Service Jan 19, 2018. Subjective Pt evaluation today including: conversation w/ patient, conversation w/ family , physical exam, lab review, review of studies, review of inpatient medication list Patient seen and evaluated. Cr continues to increase and currently at 4.86. Urine output is reduced but improved from yesterday at this point. Nephrology following Continues to have significant pain with pain worse with movement. Wasn't really eating lunch when at bedside due to pain. Constitutional: No fever, No chills Respiratory: No cough, No shortness of breath Cardiovascular: No chest pain Abdomen: + nausea, No pain, No vomiting, No diarrhea, No constipation Musculoskeletal: + problem reported (low back pain with radiation into R leg ) Heme: No abnormal bleeding/bruising Medications Current Inpatient Medications Medications (Trade) Dose Ordered Sig/Dianne Route Start Time Stop Time Status Last Admin Dose Admin Acetaminophen (Tylenol Tab) 650 mg Q4H PRN PO 01/14/18 10:30 02/13/18 10:29 Polyethylene (Miralax Powder Packet) 17 gm DAILY PRN PO 01/14/18 11:45 02/13/18 11:44 Ondansetron HCl (Zofran Inj) 4 mg Q6H PRN IV 01/14/18 10:30 02/13/18 10:29 01/19/18 12:46 4 MG Citalopram Hydrobromide (celeXA TAB) 20 mg QAM PO 01/15/18 09:00 02/14/18 08:59 Future hold 01/19/18 09:31 20 MG Digoxin (Lanoxin Tab) 0.125 mg QAM PO 01/15/18 09:00 02/14/18 08:59 Future hold 01/19/18 09:33 0.125 MG Levothyroxine Sodium (Synthroid Tab) 100 mcg DAILYBB PO 01/15/18 06:00 02/14/18 05:59 01/19/18 05:35 100 MCG Metoprolol Tartrate (Lopressor Tab) 25 mg BID PO 01/14/18 21:00 02/13/18 20:59 01/19/18 09:34 25 MG Miscellaneous Information (Order Awaiting Action) 1 ea QS N/A 01/14/18 16:00 02/13/18 15:59 Ranitidine HCl (zANTac TAB) 300 mg HS PO 01/14/18 21:00 02/13/18 20:59 01/18/18 21:03 300 MG Glucose (Glucose 40% Gel) 15-30 GRAMS 15 GRAMS... UD PRN PO 01/14/18 11:45 02/13/18 11:44 Glucose (Glucose Chew Tab) 4-8 Tablets 4 Tabl... UD PRN PO 01/14/18 11:45 02/13/18 11:44 Dextrose (Dextrose 50% 50ML Syringe) 25-50ML OF 50% DW IV FOR... UD PRN IV 01/14/18 11:45 02/13/18 11:44 Glucagon (Glucagon Inj) 1 mg UD PRN SQ 01/14/18 11:45 02/13/18 11:44 Ciprofloxacin (Ciprofloxacin Tab) 250 mg BID PO 01/14/18 21:00 01/19/18 20:59 01/19/18 09:32 250 MG Miscellaneous (Iv Fluids Completed) 1 ea PRN PRN N/A 01/14/18 16:15 01/14/19 16:14 Insulin Glargine (Lantus Solostar Pen) 15 units BID SC 01/16/18 21:00 02/13/18 20:59 Future hold 01/19/18 09:44 15 UNITS Hydralazine HCl (HydrALAZINE INJ) 20 mg Q6 PRN IV. 01/17/18 08:45 02/13/18 11:14 Promethazine HCl 12.5 mg/Sodium Chloride 50.5 ml @ 202 mls/hr Q6H PRN IV 01/17/18 16:45 02/16/18 16:44 Ondansetron HCl (Zofran Inj) 4 mg Q6H PRN IV 01/17/18 16:45 02/16/18 16:44 Metoclopramide HCl (Reglan Inj) 10 mg Q6H PRN IV 01/17/18 16:45 02/16/18 16:44 Lorazepam (Ativan Tab) 0.5 mg Q8H PRN PO 01/17/18 16:45 02/16/18 16:44 Lorazepam 0.5 mg/ Syringe 0.25 ml @ 1 mls/min Q8H PRN IV 3/26/18 16:45 02/16/18 16:44 Pneumococcal Polysaccharide Vaccine 1 ea PRN PRN N/A 01/17/18 16:45 02/16/18 16:44 Influenza Virus Vacc Triv Types A&B 1 ea PRN PRN N/A 01/17/18 16:45 02/16/18 16:44 Polyethylene (Miralax Powder Packet) 17 gm Q6 PO 01/19/18 06:00 02/18/18 05:59 01/19/18 11:45 17 GM Bisacodyl (Dulcolax Supp) 10 mg DAILY PRN [place] 01/17/18 16:45 02/16/18 16:44 Magnesium Hydroxide (Milk Of Magnesia Susp) 30 ml DAILY PRN PO 01/17/18 16:45 02/16/18 16:44 Acetaminophen (Tylenol Tab) 1,000 mg Q8H PRN PO 01/17/18 16:45 02/16/18 16:44 01/17/18 23:08 1,000 MG Acetaminophen 100 ml @ 400 mls/hr Q8H PRN IV 01/17/18 16:45 02/16/18 16:44 Naloxone HCl (Narcan Inj) 0.1 mg Q5M PRN IV 01/17/18 16:45 02/16/18 16:44 Senna/Docusate Sodium (Senokot S Tab) 2 tab HS PO 01/17/18 21:00 02/16/18 20:59 01/18/18 21:03 2 TAB Sodium Biphosphate/ Sodium Phosphate (Fleet Enema) 132 ml ONE PRN [place] 01/17/18 16:45 02/16/18 16:44 Hydroxyzine HCl (Vistaril Tab) 25 mg Q8H PRN PO 01/17/18 16:45 02/16/18 16:44 Al Hydroxide/Mg Hydroxide (Maalox Susp) 30 ml Q6H PRN PO 01/17/18 16:45 02/16/18 16:44 Famotidine (Pepcid Tab) 20 mg Q12 PRN PO 01/17/18 16:45 02/16/18 16:44 Diphenhydramine HCl (Benadryl Cap) 25 mg Q6H PRN PO 01/17/18 16:45 02/16/18 16:44 Insulin Aspart (novoLOG ASPART) SLIDING SCALE G... ACHS SC 01/17/18 21:00 02/16/18 20:59 Sodium Chloride 1,000 ml @ 200 mls/hr Q5H IV 01/18/18 13:45 02/17/18 13:44 01/19/18 09:27 200 MLS/HR Hydromorphone HCl (Dilaudid Inj) 0.5-1mg prn moder... Q2HWA PRN IV 01/18/18 16:30 02/01/18 06:00 01/19/18 08:57 1 MG Oxycodone HCl (Oxycontin Tab) 10 mg Q12H PO 01/18/18 17:00 02/01/18 16:59 01/19/18 05:30 10 MG Oxycodone HCl (Roxicodone Immediate Rel Tab) 5-10mg prn moderate to sev... Q4H PRN PO 01/19/18 11:45 02/02/18 11:44 01/19/18 11:39 10 MG Objective Vital Signs Date Time Temp Pulse Resp B/P (MAP) Pulse Ox O2 Delivery O2 Flow Rate FiO2 01/19/18 09:33 84 01/19/18 07:59 93 Nasal Cannula 2.0 01/19/18 07:44 Nasal Cannula 2.0 01/19/18 07:43 37.3 84 16 142/78 (99) 93 Nasal Cannula 2.0 01/19/18 00:10 Nasal Cannula 2.0 01/18/18 22:52 37.5 61 16 120/66 (84) 96 Nasal Cannula 2.0 01/18/18 21:00 37.3 80 120/79 (93) 92 Nasal Cannula 2.0 01/18/18 15:55 Nasal Cannula 2.0 01/18/18 15:04 36.9 70 18 120/64 (82) 95 Nasal Cannula 2.0 Physical Exam General Appearance: WD/WN, + mild distress (pain-related) Eyes: sclerae normal ENT: hearing grossly normal Neck: supple, no JVD, trachea midline Respiratory/Chest: lungs clear, normal breath sounds, no respiratory distress, no accessory muscle use Cardiovascular: regular rate, rhythm, no gallop, no murmur Abdomen: normal bowel sounds, non tender, soft Extremities: no pedal edema Neurologic/Psychiatric: alert Skin: normal color, warm/dry Laboratory Results Last 24 Hours Test 01/18/18 13:45 01/18/18 17:44 01/18/18 20:18 01/19/18 00:30 Sodium Level 139 mmol/L Potassium Level 5.0 mmol/L Chloride Level 106 mmol/L Carbon Dioxide Level 26 mmol/L Anion Gap 7.0 mmol/L Blood Urea Nitrogen 32 mg/dl Creatinine 3.68 mg/dl Est Creatinine Clear Calc Drug Dose 19.5 ml/min Estimated GFR () 17.3 Estimated GFR (Non- 15.0 BUN/Creatinine Ratio 8.6 Random Glucose 114 mg/dl Calcium Level 8.1 mg/dl Bedside Glucose 104 mg/dl 111 mg/dl Urine Color DK YELLOW Urine Appearance TURBID Urine pH 5.0 Urine Specific [place] 1.025 Urine Protein 1+ Urine Glucose (UA) NEG Urine Ketones TRACE Urine Occult Blood 2+ Urine Nitrite NEG Urine Bilirubin NEG Urine Urobilinogen NEG Urine Leukocyte Esterase MODERATE Urine WBC (Auto) >30 /hpf Urine RBC (Auto) 0-4 /hpf Urine Hyaline Casts (Auto) 10-30 /lpf Urine Epithelial Cells (Auto) 10-20 /lpf Urine Bacteria (Auto) NEG Urine Yeast (Auto) Test 01/19/18 06:01 01/19/18 07:18 01/19/18 08:18 01/19/18 09:38 White Blood Count 13.89 K/uL Red Blood Count 3.97 M/uL Hemoglobin 10.8 g/dL Hematocrit 34.9 % Mean Corpuscular Volume 87.9 fL Mean Corpuscular Hemoglobin 27.2 pg Mean Corpuscular Hemoglobin Concent 30.9 g/dl RDW Standard Deviation 52.1 fL RDW Coefficient of Variation 16.1 % Platelet Count 158 K/uL Mean Platelet Volume 10.2 fL Nucleated RBC Absolute Count (auto) 0.10 K/uL Nucleated Red Blood Cells % 0.7 % Sodium Level 138 mmol/L Potassium Level mmol/L 5.1 mmol/L Chloride Level 107 mmol/L Carbon Dioxide Level 24 mmol/L Anion Gap 8.0 mmol/L Blood Urea Nitrogen 39 mg/dl Creatinine 4.86 mg/dl Est Creatinine Clear Calc Drug Dose 14.8 ml/min Estimated GFR () 12.4 Estimated GFR (Non- 10.7 BUN/Creatinine Ratio 8.1 Random Glucose 101 mg/dl Calcium Level 8.1 mg/dl Magnesium Level mg/dl 2.0 mg/dl Bedside Glucose 102 mg/dl Erythrocyte Sedimentation Rate 20 mm/hr Phosphorus Level 5.7 mg/dl Iron Level 22 mcg/dl Total Iron Binding Capacity 231 mcg/dl Transferrin 167 mg/dl Transferrin % Saturation 9 % Ferritin 178.3 ng/ml Test 01/19/18 09:39 01/19/18 12:12 Urine Random Creatinine 283.0 mg/dl Urine Random Total Protein 159.0 mg/dl Urine Protein/Creatinine Ratio 0.6 Bedside Glucose 124 mg/dl Assessment and Plan 77 yo male with acute pulmonary edema due to noncompliance with Lasix Acute on Chronic Diastolic CHF 2/2 Non-Compliance: STABLE - Continue to monitor fluid status - appears euvolemic at this time Accelerated HTN: IMPROVING - Digoxin resumed and Lisinopril remains on hold - U/S obtained with no subclavian stenosis - obtained due to discrepancies in BP readings in arms - Lopressor 25 mg BID TANNER on CKD Stage III: STABLE - Cr increased to 3.16 - had fluids after surgery and Lasix overnight - will obtain F/U labs this afternoon and adjust as necessary pending labs -- Patient largely appears euvolemic at this time but did have some hypoxia last night Recent UTI (as outpatient) - Citrobacter: RESOLVED - Initially treated with Augmentin but had resistance to amoxicillin - has been transitioned to Cipro and due to finish course soon T2DM: BSGs Acceptable - Will continue Lantus at reduced dose of 15 units SC BID Hypothyroidism: STABLE - Synthroid 100 mcg daily Lumbar Spinal Stenosis S/P Decompression: - Continues to have significant pain - most with movement; DIANNE Sustained Release with IR Q4H; IV Dilaudid for breakthrough - Will recommend good bowel regimen - Dr. Brown following - appreciate recommendations DVT Prophylaxis: Heparin on hold 11/26 surgery Code Status: FULL RESUSCITATION Disposition: - PT/OT evaluations - patient to discuss with about possible rehab - likely will need Continued [facility] stay due to: inadequate oral pain control, multiple IV medications needed
[2018-01-19 14:50] LABS: CREATININE 4.79 mg/dl (0.60-1.40)
[2018-01-19 14:51] LABS: CALCIUM 7.9 mg/dl (8.5-10.1)
[2018-01-19 15:53] VITALS: BP 117/69; PULSE 70; TEMP 36.4; O2SAT 99
[2018-01-19] MEDS: RANITIDINE HCL 150 MG TAB PO SCH (21:39)
[2018-01-19] MEDS: DOCUSATE SODIUM/SENNA 50/8.6MG TAB PO SCH (21:39)
[2018-01-19] MEDS ORDERED: NURSING VERBAL MED ORDER ONE (22:30)
[2018-01-19] MEDS: HYDROmorphone INJ 2 MG/ML SYR/VIAL IV PRN (23:06)
[2018-01-19 23:28] VITALS: BP 147/76; PULSE 88; TEMP 37.1; O2SAT 94
[2018-01-20] MEDS ORDERED: NURSING DECISION MEDICATION ORDER SCH (02:30)
[2018-01-20 04:07] LABS: HEMATOCRIT 29.9 % (42-52); HEMOGLOBIN 9.6 g/dL (14.0-18.0); MEAN CELL VOLUME 86.9 fL (80-100); MEAN CORPUSCULAR HEMOGLOBIN 27.9 pg (25-34); MEAN CORPUSCULAR HGB CONC 32.1 g/dl (32-36); MEAN PLATELET VOLUME 10.1 fL (7.4-10.4); PLATELET COUNT 130 K/uL (130-400); RED CELL DISTRIBUTION WIDTH CV 15.7 % (11.5-14.5); RED CELL DISTRIBUTION WIDTH SD 50.6 fL (36.4-46.3); WHITE BLOOD COUNT 11.01 K/uL (4.8-10.8)
[2018-01-20 04:41] LABS: CALCIUM 7.6 mg/dl (8.5-10.1); CREATININE 4.9 mg/dl (0.60-1.40)
[2018-01-20] MEDS: SODIUM CHLORIDE 0.9% 1000ML 1,000 ML IV SCH ×2 (05:04→09:28)
[2018-01-20] MEDS: POLYETHYLENE (MIRALAX) 17 GM PACK PO SCH ×3 (05:49→18:00)
[2018-01-20] MEDS: OXYCODONE HCL 10 MG TABCR (OXYCONTIN) PO SCH ×2 (05:49→17:09)
[2018-01-20] MEDS: LEVOTHYROXINE 100 MCG TAB PO SCH (05:49)
[2018-01-20] MEDS ORDERED: INSULIN ASPART 100 UNITS/ML 3 ML PEN SC SCH (06:00)
[2018-01-20] MEDS: HYDROmorphone INJ 2 MG/ML SYR/VIAL IV PRN (06:18)
[2018-01-20 07:35] VITALS: BP 123/64; PULSE 85; TEMP 36.6; O2SAT 95
[2018-01-20 08:07] VITALS: O2SAT 95
[2018-01-20] MEDS: CITALOPRAM 20 MG TAB PO SCH (09:28)
[2018-01-20] MEDS: METOPROLOL TARTRATE 25 MG TAB PO SCH ×2 (09:28→20:55)
[2018-01-20] MEDS: DIGOXIN 0.125 MG TAB PO SCH (09:29)
[2018-01-20] MEDS: INSULIN GLARGINE SOLOSTAR 100 UNITS/ML 3 ML PEN SC SCH ×2 (09:33→20:52)
--- NOTE | 2018-01-20 10:21 | Nephrology Progress Note ---
Nephrology Progress Note Date of Service Jan 20, 2018. Chief Complaint F/U for acute kidney injury. Subjective Beto was seen examined in his room this morning. Overall he has been feeling about the same,continues to have back pain. Urine output increased overall he made more than 700 mL over last 24 hours after receiving 2 doses of IV Lasix. Renal function remained stable, electrolyte acceptable. Review of Systems A complete review of systems was performed. Pertinent positives are noted above. All other systems are negative. Vital Signs Last 8 Hrs Date Time Temp Pulse Resp B/P (MAP) Pulse Ox O2 Delivery O2 Flow Rate FiO2 01/19/18 23:40 Nasal Cannula 2.0 01/19/18 23:28 37.1 88 16 147/76 (99) 94 Room Air Last Recorded Weight Weight (Kilograms): 99.200 Physical Exam GENERAL: elderly male, AAA x 3, pleasant, healthy-appearing, not in any distress. NECK: Supple, no JVD. RESPIRATORY: Normal breathing efforts, no accessory muscle use, clear to auscultation bilaterally, no wheezes or rales. CARDIOVASCULAR: S1, S2 normal, rate rhythm regular. EXTREMITY: Trace b/l lower extremity edema NEURO: speech fluent. 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) Laboratory Results Past 24 Hours 01/20/18 03:45 01/19/18 07:18 01/19/18 13:39 01/19/18 14:58 01/20/18 03:45 Test 01/19/18 07:18 01/19/18 08:18 01/19/18 09:38 01/19/18 09:39 Magnesium Level 2.0 mg/dl (1.8-2.4) Bedside Glucose 102 mg/dl (70-99) Erythrocyte Sedimentation Rate 20 mm/hr (0-14) Phosphorus Level 5.7 mg/dl (2.5-4.9) Iron Level 22 mcg/dl (35-175) Total Iron Binding Capacity 231 mcg/dl (250-450) Transferrin 167 mg/dl (200-360) Transferrin % Saturation 9 % (20-50) Ferritin 178.3 ng/ml (8.0-388.0) Urine Random Creatinine 283.0 mg/dl Urine Random Total Protein 159.0 mg/dl (0-11.9) Urine Protein/Creatinine Ratio 0.6 (0-0.2) Test 01/19/18 12:12 01/19/18 13:39 01/19/18 17:04 01/19/18 20:44 Bedside Glucose 124 mg/dl (70-99) 132 mg/dl (70-99) 120 mg/dl (70-99) Anion Gap 7.0 mmol/L (3-11) Est Creatinine Clear Calc Drug Dose 15.0 ml/min Estimated GFR () 12.6 Estimated GFR (Non- 10.9 BUN/Creatinine Ratio 8.6 (10-20) Calcium Level 7.9 mg/dl (8.5-10.1) Total Creatine Kinase 807 U/L (39-308) Test 01/20/18 03:45 01/20/18 05:54 Red Blood Count 3.44 M/uL (4.7-6.1) Mean Corpuscular Volume 86.9 fL (80-100) Mean Corpuscular Hemoglobin 27.9 pg (25-34) Mean Corpuscular Hemoglobin Concent 32.1 g/dl (32-36) RDW Standard Deviation 50.6 fL (36.4-46.3) RDW Coefficient of Variation 15.7 % (11.5-14.5) Mean Platelet Volume 10.1 fL (7.4-10.4) Anion Gap 9.0 mmol/L (3-11) Est Creatinine Clear Calc Drug Dose 14.7 ml/min Estimated GFR () 12.3 Estimated GFR (Non- 10.6 BUN/Creatinine Ratio 10.7 (10-20) Calcium Level 7.6 mg/dl (8.5-10.1) Magnesium Level 1.9 mg/dl (1.8-2.4) Bedside Glucose 97 mg/dl (70-99) Allergies Coded Allergies: No Known Allergies (Unverified , 01/17/18) Medications Current Inpatient Medications Medications (Trade) Dose Ordered Sig/Dianne Route Start Time Stop Time Status Last Admin Dose Admin Acetaminophen (Tylenol Tab) 650 mg Q4H PRN PO 01/14/18 10:30 02/13/18 10:29 Polyethylene (Miralax Powder Packet) 17 gm DAILY PRN PO 01/14/18 11:45 02/13/18 11:44 Ondansetron HCl (Zofran Inj) 4 mg Q6H PRN IV 01/14/18 10:30 02/13/18 10:29 01/19/18 12:46 4 MG Citalopram Hydrobromide (celeXA TAB) 20 mg QAM PO 01/15/18 09:00 02/14/18 08:59 Future hold 01/19/18 09:31 20 MG Digoxin (Lanoxin Tab) 0.125 mg QAM PO 01/15/18 09:00 02/14/18 08:59 Future hold 01/19/18 09:33 0.125 MG Levothyroxine Sodium (Synthroid Tab) 100 mcg DAILYBB PO 01/15/18 06:00 02/14/18 05:59 01/20/18 05:49 100 MCG Metoprolol Tartrate (Lopressor Tab) 25 mg BID PO 01/14/18 21:00 02/13/18 20:59 01/19/18 21:38 25 MG Miscellaneous Information (Order Awaiting Action) 1 ea QS N/A 01/14/18 16:00 02/13/18 15:59 Ranitidine HCl (zANTac TAB) 300 mg HS PO 01/14/18 21:00 02/13/18 20:59 01/19/18 21:39 300 MG Glucose (Glucose 40% Gel) 15-30 GRAMS 15 GRAMS... UD PRN PO 01/14/18 11:45 02/13/18 11:44 Glucose (Glucose Chew Tab) 4-8 Tablets 4 Tabl... UD PRN PO 01/14/18 11:45 02/13/18 11:44 Dextrose (Dextrose 50% 50ML Syringe) 25-50ML OF 50% DW IV FOR... UD PRN IV 01/14/18 11:45 02/13/18 11:44 Glucagon (Glucagon Inj) 1 mg UD PRN SQ 01/14/18 11:45 02/13/18 11:44 Miscellaneous (Iv Fluids Completed) 1 ea PRN PRN N/A 01/14/18 16:15 01/14/19 16:14 Insulin Glargine (Lantus Solostar Pen) 15 units BID SC 01/16/18 21:00 02/13/18 20:59 Future hold 01/19/18 09:44 15 UNITS Hydralazine HCl (HydrALAZINE INJ) 20 mg Q6 PRN IV. 01/17/18 08:45 02/13/18 11:14 Promethazine HCl 12.5 mg/Sodium Chloride 50.5 ml @ 202 mls/hr Q6H PRN IV 01/17/18 16:45 02/16/18 16:44 Ondansetron HCl (Zofran Inj) 4 mg Q6H PRN IV 01/17/18 16:45 02/16/18 16:44 Metoclopramide HCl (Reglan Inj) 10 mg Q6H PRN IV 01/17/18 16:45 02/16/18 16:44 Lorazepam (Ativan Tab) 0.5 mg Q8H PRN PO 01/17/18 16:45 02/16/18 16:44 Lorazepam 0.5 mg/ Syringe 0.25 ml @ 1 mls/min Q8H PRN IV 01/17/18 16:45 02/16/18 16:44 Pneumococcal Polysaccharide Vaccine 1 ea PRN PRN N/A 01/17/18 16:45 02/16/18 16:44 Influenza Virus Vacc Triv Types A&B 1 ea PRN PRN N/A 01/17/18 16:45 02/16/18 16:44 Polyethylene (Miralax Powder Packet) 17 gm Q6 PO 01/19/18 06:00 02/18/18 05:59 01/20/18 05:49 17 GM Bisacodyl (Dulcolax Supp) 10 mg DAILY PRN [place] 01/17/18 16:45 02/16/18 16:44 Magnesium Hydroxide (Milk Of Magnesia Susp) 30 ml DAILY PRN PO 01/17/18 16:45 02/16/18 16:44 Acetaminophen (Tylenol Tab) 1,000 mg Q8H PRN PO 01/17/18 16:45 02/16/18 16:44 01/17/18 23:08 1,000 MG Acetaminophen 100 ml @ 400 mls/hr Q8H PRN IV 01/17/18 16:45 02/16/18 16:44 Naloxone HCl (Narcan Inj) 0.1 mg Q5M PRN IV 3/26/18 16:45 02/16/18 16:44 Senna/Docusate Sodium (Senokot S Tab) 2 tab HS PO 01/17/18 21:00 02/16/18 20:59 01/19/18 21:39 2 TAB Sodium Biphosphate/ Sodium Phosphate (Fleet Enema) 132 ml ONE PRN [place] 01/17/18 16:45 02/16/18 16:44 Hydroxyzine HCl (Vistaril Tab) 25 mg Q8H PRN PO 01/17/18 16:45 02/16/18 16:44 Al Hydroxide/Mg Hydroxide (Maalox Susp) 30 ml Q6H PRN PO 01/17/18 16:45 02/16/18 16:44 Famotidine (Pepcid Tab) 20 mg Q12 PRN PO 01/17/18 16:45 02/16/18 16:44 Diphenhydramine HCl (Benadryl Cap) 25 mg Q6H PRN PO 01/17/18 16:45 02/16/18 16:44 Sodium Chloride 1,000 ml @ 200 mls/hr Q5H IV 01/18/18 13:45 02/17/18 13:44 01/20/18 05:04 200 MLS/HR Oxycodone HCl (Oxycontin Tab) 10 mg Q12H PO 01/18/18 17:00 02/01/18 16:59 01/20/18 05:49 10 MG Oxycodone HCl (Roxicodone Immediate Rel Tab) 5-10mg prn moderate to sev... Q4H PRN PO 01/19/18 11:45 02/02/18 11:44 01/19/18 15:47 10 MG Hydromorphone HCl (Dilaudid Inj) 0.5-1mg prn moder... Q2HWA PRN IV 01/19/18 15:30 02/01/18 15:29 01/20/18 06:18 1 MG Insulin Aspart (novoLOG ASPART) SLIDING SCALE G... Q6 SC 01/20/18 06:00 02/19/18 05:59 Impression 77-year-old gentlemen with stage 3 chronic kidney disease baseline creatinine around 1.7, admitted to the hospital for the laminectomy. Post surgery he was found to have acute kidney injury creatinine was 3.5 which progressively worsened to 3.8 this morning. He became anuric. Electrolyte currently remain acceptable. He was on Lasix and Toradol which was discontinued. Urinalysis positive for hematuria, proteinuria and pyuria. Renal ultrasound unremarkable. No significant hypotensive episode. Differentials include hemodynamically mediated ATN, acute interstitial nephritis or rapidly progressive glomerulonephritis. Recommendations --renal function remained stable, patient started to make urine and responding to diuretics, electrolyte acceptable blood pressure well controlled --no urgent need for renal replacement therapy at this point, will continue to monitor renal function and urine output while we wait for the result of the serological study. --discussed in detail with pts daughter Carol Madrid ) Will follow
[2018-01-20] MEDS ORDERED: FUROSEMIDE INJ 120 MG in SYRINGE 0 ML IV ONE (10:30)
--- NOTE | 2018-01-20 10:59 | DIAGNOSTIC IMAGING REPORT ---
CHEST ONE VIEW PORTABLE CLINICAL HISTORY: SOB dyspnea COMPARISON STUDY: 01/15/2018 FINDINGS: Improving pulmonary vasculature. Mild stable cardiomegaly. Developing left basilar infiltrate. 7 progressive left basilar effusion. IMPRESSION: 1. Developing infiltrative process left lung base. 2. Slight increase of a small left pleural effusion. 3. Improving congestive failure The above report was generated using voice recognition software. It may contain grammatical, syntax or spelling errors. Electronically signed by: Isael Calderon M.D. 01/20/2018 10:57 AM Dictated Date/Time: 01/20/2018 10:56 AM
--- NOTE | 2018-01-20 11:43 | Progress Note ---
Progress Note Date of Service Jan 20, 2018. Progress Note Patient complaining of significant incisional back pain. He says some radiation to the right anterior thigh. I evaluated him today in the company of his daughter. On exam exhibits exquisite tenderness to palpation of the midline the lumbar spine overlying the incision. Neurologically he has full sensory motor function. No tension signs. He is quite comfortable when at rest. Assessment status post multilevel lumbar decompression fusion. Plan at this time will hope to decrease utilization of narcotic medications. I will give him as needed Flexeril for back spasms. I will withhold physical therapy for the next few days. We will focus simply on transitions from bed to chair. Continue to watch closely his kidney function.
[2018-01-20] MEDS ORDERED: NURSING VERBAL MED ORDER ONE ×2 (12:15→18:15)
[2018-01-20] MEDS: INSULIN ASPART 100 UNITS/ML 3 ML PEN SC SCH ×3 (13:08→20:52)
--- NOTE | 2018-01-20 14:42 | Hospitalist Progress Note ---
Hospitalist Progress Note Date of Service Jan 20, 2018. Subjective Pt evaluation today including: conversation w/ patient, physical exam, lab review, review of studies, review of inpatient medication list Patient seen and evaluated. Continues to have significant pain with movement. Appears slightly more comfortable today but minimally. Producing more urine today. At 1300 cc with utilization of Lasix. Holding of temporary dialysis at this time. Will monitor renal function Hopefully will be more improved tomorrow as well. No other complaints other than pain. Obtained CXR this AM. There is developing L base infiltrate which may be an element of atelectasis. Will monitor and hold on Abx at this time Constitutional: No fever, No chills Respiratory: No cough, No shortness of breath Cardiovascular: No chest pain Abdomen: + diarrhea, No pain, No nausea, No vomiting, No constipation Musculoskeletal: + problem reported (low back pain) Male : No dysuria Medications Current Inpatient Medications Medications (Trade) Dose Ordered Sig/Dianne Route Start Time Stop Time Status Last Admin Dose Admin Acetaminophen (Tylenol Tab) 650 mg Q4H PRN PO 01/14/18 10:30 02/13/18 10:29 Polyethylene (Miralax Powder Packet) 17 gm DAILY PRN PO 01/14/18 11:45 02/13/18 11:44 Ondansetron HCl (Zofran Inj) 4 mg Q6H PRN IV 01/14/18 10:30 02/13/18 10:29 01/19/18 12:46 4 MG Citalopram Hydrobromide (celeXA TAB) 20 mg QAM PO 01/15/18 09:00 02/14/18 08:59 Future hold 01/20/18 09:28 20 MG Digoxin (Lanoxin Tab) 0.125 mg QAM PO 01/15/18 09:00 02/14/18 08:59 Future hold 01/20/18 09:29 0.125 MG Levothyroxine Sodium (Synthroid Tab) 100 mcg DAILYBB PO 01/15/18 06:00 02/14/18 05:59 01/20/18 05:49 100 MCG Metoprolol Tartrate (Lopressor Tab) 25 mg BID PO 01/14/18 21:00 02/13/18 20:59 01/20/18 09:28 25 MG Miscellaneous Information (Order Awaiting Action) 1 ea QS N/A 3/23/18 16:00 02/13/18 15:59 Ranitidine HCl (zANTac TAB) 300 mg HS PO 01/14/18 21:00 02/13/18 20:59 01/19/18 21:39 300 MG Glucose (Glucose 40% Gel) 15-30 GRAMS 15 GRAMS... UD PRN PO 01/14/18 11:45 02/13/18 11:44 Glucose (Glucose Chew Tab) 4-8 Tablets 4 Tabl... UD PRN PO 01/14/18 11:45 02/13/18 11:44 Dextrose (Dextrose 50% 50ML Syringe) 25-50ML OF 50% DW IV FOR... UD PRN IV 01/14/18 11:45 02/13/18 11:44 Glucagon (Glucagon Inj) 1 mg UD PRN SQ 01/14/18 11:45 02/13/18 11:44 Miscellaneous (Iv Fluids Completed) 1 ea PRN PRN N/A 01/14/18 16:15 01/14/19 16:14 Insulin Glargine (Lantus Solostar Pen) 15 units BID SC 01/16/18 21:00 02/13/18 20:59 Future hold 01/20/18 09:33 15 UNITS Hydralazine HCl (HydrALAZINE INJ) 20 mg Q6 PRN IV. 01/17/18 08:45 02/13/18 11:14 Promethazine HCl 12.5 mg/Sodium Chloride 50.5 ml @ 202 mls/hr Q6H PRN IV 01/17/18 16:45 02/16/18 16:44 Ondansetron HCl (Zofran Inj) 4 mg Q6H PRN IV 01/17/18 16:45 02/16/18 16:44 Metoclopramide HCl (Reglan Inj) 10 mg Q6H PRN IV 01/17/18 16:45 02/16/18 16:44 Lorazepam (Ativan Tab) 0.5 mg Q8H PRN PO 01/17/18 16:45 02/16/18 16:44 Lorazepam 0.5 mg/ Syringe 0.25 ml @ 1 mls/min Q8H PRN IV 01/17/18 16:45 02/16/18 16:44 Pneumococcal Polysaccharide Vaccine 1 ea PRN PRN N/A 01/17/18 16:45 02/16/18 16:44 Influenza Virus Vacc Triv Types A&B 1 ea PRN PRN N/A 01/17/18 16:45 02/16/18 16:44 Polyethylene (Miralax Powder Packet) 17 gm Q6 PO 01/19/18 06:00 02/18/18 05:59 01/20/18 05:49 17 GM Bisacodyl (Dulcolax Supp) 10 mg DAILY PRN MS 01/17/18 16:45 02/16/18 16:44 Magnesium Hydroxide (Milk Of Magnesia Susp) 30 ml DAILY PRN PO 01/17/18 16:45 02/16/18 16:44 Acetaminophen (Tylenol Tab) 1,000 mg Q8H PRN PO 01/17/18 16:45 02/16/18 16:44 01/17/18 23:08 1,000 MG Acetaminophen 100 ml @ 400 mls/hr Q8H PRN IV 01/17/18 16:45 02/16/18 16:44 Naloxone HCl (Narcan Inj) 0.1 mg Q5M PRN IV 01/17/18 16:45 02/16/18 16:44 Senna/Docusate Sodium (Senokot S Tab) 2 tab HS PO 01/17/18 21:00 02/16/18 20:59 01/19/18 21:39 2 TAB Hydroxyzine HCl (Vistaril Tab) 25 mg Q8H PRN PO 01/17/18 16:45 02/16/18 16:44 Al Hydroxide/Mg Hydroxide (Maalox Susp) 30 ml Q6H PRN PO 01/17/18 16:45 02/16/18 16:44 Famotidine (Pepcid Tab) 20 mg Q12 PRN PO 01/17/18 16:45 02/16/18 16:44 Diphenhydramine HCl (Benadryl Cap) 25 mg Q6H PRN PO 01/17/18 16:45 02/16/18 16:44 Oxycodone HCl (Oxycontin Tab) 10 mg Q12H PO 01/18/18 17:00 02/01/18 16:59 01/20/18 17:09 10 MG Oxycodone HCl (Roxicodone Immediate Rel Tab) 5-10mg prn moderate to sev... Q4H PRN PO 01/19/18 11:45 02/02/18 11:44 01/19/18 15:47 10 MG Hydromorphone HCl (Dilaudid Inj) 0.5-1mg prn moder... Q2HWA PRN IV 01/19/18 15:30 02/01/18 15:29 01/20/18 06:18 1 MG Cyclobenzaprine HCl (Flexeril Tab) 5 mg BID PRN PO 01/20/18 11:45 02/19/18 11:44 Insulin Aspart (novoLOG ASPART) SLIDING SCALE G... ACHS SC 01/20/18 17:15 02/19/18 17:14 Objective Vital Signs Date Time Temp Pulse Resp B/P (MAP) Pulse Ox O2 Delivery O2 Flow Rate FiO2 01/20/18 09:29 80 01/20/18 08:07 95 Nasal Cannula 2.0 01/20/18 07:35 36.6 85 16 123/64 (83) 95 Nasal Cannula 2.0 01/19/18 23:40 Nasal Cannula 2.0 01/19/18 23:28 37.1 88 16 147/76 (99) 94 Room Air 01/19/18 15:53 36.4 70 20 117/69 (85) 99 Nasal Cannula 2.0 Physical Exam General Appearance: WD/WN, no apparent distress Eyes: sclerae normal ENT: hearing grossly normal Neck: supple, no JVD, trachea midline Respiratory/Chest: no respiratory distress, no accessory muscle use, + decreased breath sounds (bases b/l) Cardiovascular: regular rate, rhythm, no gallop, no murmur Abdomen: normal bowel sounds, non tender, soft Neurologic/Psychiatric: alert Laboratory Results Last 24 Hours Test 01/19/18 14:58 01/19/18 17:04 01/19/18 20:44 01/20/18 03:45 Potassium Level 4.8 mmol/L 5.0 mmol/L Bedside Glucose 132 mg/dl 120 mg/dl White Blood Count 11.01 K/uL Red Blood Count 3.44 M/uL Hemoglobin 9.6 g/dL Hematocrit 29.9 % Mean Corpuscular Volume 86.9 fL Mean Corpuscular Hemoglobin 27.9 pg Mean Corpuscular Hemoglobin Concent 32.1 g/dl RDW Standard Deviation 50.6 fL RDW Coefficient of Variation 15.7 % Platelet Count 130 K/uL Mean Platelet Volume 10.1 fL Sodium Level 138 mmol/L Chloride Level 108 mmol/L Carbon Dioxide Level 21 mmol/L Anion Gap 9.0 mmol/L Blood Urea Nitrogen 51 mg/dl Creatinine 4.90 mg/dl Est Creatinine Clear Calc Drug Dose 14.7 ml/min Estimated GFR () 12.3 Estimated GFR (Non- 10.6 BUN/Creatinine Ratio 10.7 Random Glucose 112 mg/dl Calcium Level 7.6 mg/dl Magnesium Level 1.9 mg/dl Test 01/20/18 05:54 01/20/18 08:05 01/20/18 12:29 Bedside Glucose 97 mg/dl 98 mg/dl 102 mg/dl Assessment and Plan 77 yo male with acute pulmonary edema due to noncompliance with Lasix Acute on Chronic Diastolic CHF 2/2 Non-Compliance: STABLE - Continue to monitor fluid status - appears euvolemic at this time Accelerated HTN: IMPROVING - Digoxin resumed and Lisinopril remains on hold - U/S obtained with no subclavian stenosis - obtained due to discrepancies in BP readings in arms - Lopressor 25 mg BID TANNER on CKD Stage III: - Cr increased to 4.9 - responding to Lasix as well as UO drastically increased - Nephrology following - holding on [employer] WORK[employer] at this time given improvement in UO Recent UTI (as outpatient) - Citrobacter: RESOLVED - Initially treated with Augmentin but had resistance to amoxicillin - has been transitioned to Cipro and course completed T2DM: BSGs Acceptable - Will continue Lantus at reduced dose of 15 units SC BID - BSGs remain acceptable with this dosing Hypothyroidism: STABLE - Synthroid 100 mcg daily Lumbar Spinal Stenosis S/P Decompression: - Continues to have significant pain - most with movement; DIANNE Sustained Release with IR Q4H; IV Dilaudid for breakthrough; Flexeril added - Will recommend good bowel regimen - Dr. Brown following - appreciate recommendations DVT Prophylaxis: Heparin on hold 11/26 surgery Code Status: FULL RESUSCITATION Disposition: - PT/OT evaluations - likely will need rehab -- Plan is to hold PT/OT given his pain and to slowly progress Continued [facility] stay due to: inadequate oral pain control, ambulation difficulties Discharge planning: rehab hospital
[2018-01-20 15:04] VITALS: BP 115/70; PULSE 71; TEMP 36.8; O2SAT 97
[2018-01-20] MEDS: DOCUSATE SODIUM/SENNA 50/8.6MG TAB PO SCH (20:51)
[2018-01-20 20:55] VITALS: BP 146/73; PULSE 72; O2SAT 96
[2018-01-20] MEDS: RANITIDINE HCL 150 MG TAB PO SCH (20:59)
[2018-01-20 22:48] VITALS: BP 136/69; PULSE 72; TEMP 37.1; O2SAT 95
[2018-01-21] VITALS (8 sets, daily range): BP systolic 125–179; BP diastolic 68–84; PULSE 62–79; TEMP 36.8–37; O2SAT 94–97; Ht 175.3 cm; Wt 93.0 kg
[2018-01-21] MEDS: OXYCODONE HCL 10 MG TABCR (OXYCONTIN) PO SCH ×2 (05:34→16:57)
[2018-01-21] MEDS: LEVOTHYROXINE 100 MCG TAB PO SCH (05:34)
[2018-01-21] MEDS: INSULIN ASPART 100 UNITS/ML 3 ML PEN SC SCH ×4 (08:00→21:00)
--- NOTE | 2018-01-21 08:01 | Orthopedic Progress Note ---
Orthopedic Progress Note Date of Service Jan 21, 2018. Subjective Post OP Day: 4 Additional Notes: Patient is postoperative for multilevel lumbar decompression fusion. He is struggling with lower back pain that sometimes radiates to the right anterior thigh. This seems to be positional. This is exacerbated with any type of movement. He states once he is up and walking the pain does improve. He is comfortable at rest. JULISA drain output is 30 cc. He has had a bowel movement yesterday. He has not had physical therapy yet. Rodarte is intact. His kidney issues seem to be improving. Objective calves soft nontender, N/V intact, dressing C/D/I, A&O x3 He is lying in bed. Strength is intact bilateral lower extremities. Calf is soft nontender. Any type of movement does cause him to flinch and be in pain. Date Time Temp Pulse Resp B/P (MAP) Pulse Ox O2 Delivery O2 Flow Rate FiO2 01/21/18 07:16 36.8 79 16 179/84 (115) 94 Nasal Cannula 2.0 01/20/18 23:35 Nasal Cannula 1.0 01/20/18 22:48 37.1 72 16 136/69 (91) 95 Nasal Cannula 2.0 01/20/18 20:55 72 146/73 (97) 96 Nasal Cannula 1.0 01/20/18 15:43 Nasal Cannula 2.0 01/20/18 15:04 36.8 71 22 115/70 (85) 97 Nasal Cannula 2.0 01/20/18 09:29 80 01/20/18 08:07 95 Nasal Cannula 2.0 Laboratory Results 24 Hours: Test 01/21/18 07:45 Assessment & Plan Assessment: Postop day 4 multilevel lumbar decompression fusion with continued back pain. Also has acute kidney injury. CHF has resolved. He has completed treatment for UTI Plan: In order a lumbar spine x-ray to further eval instrumentation. His Flexeril order for pain control. We are obviously being cautious with narcotics in him. Unable to use Toradol secondary to his kidney issues. DVT prophylaxis in the form of teds and SCDs. We are going very slowly with physical therapy. Inhouse Planning DVT Prophylaxis: TEDs, SCDs Discharge Planning Discharge Planning: rehab hospital DVT Prophylaxis: Vipul
[2018-01-21 08:04] LABS: HEMATOCRIT 32.1 % (42-52); MEAN CELL VOLUME 86.5 fL (80-100); MEAN CORPUSCULAR HGB CONC 31.2 g/dl (32-36); MEAN PLATELET VOLUME 10.5 fL (7.4-10.4); PLATELET COUNT 168 K/uL (130-400); RED CELL DISTRIBUTION WIDTH CV 15.7 % (11.5-14.5); RED CELL DISTRIBUTION WIDTH SD 50.2 fL (36.4-46.3); WHITE BLOOD COUNT 9.96 K/uL (4.8-10.8)
[2018-01-21 08:39] LABS: CALCIUM 8.1 mg/dl (8.5-10.1); CREATININE 4.98 mg/dl (0.60-1.40); POTASSIUM 4.7 mmol/L (3.5-5.1)
--- NOTE | 2018-01-21 08:49 | DIAGNOSTIC IMAGING REPORT ---
LUMBAR SPINE 2 OR 3 VIEWS CLINICAL HISTORY: significant LBP with modest movement; eval hardware postoperative pain COMPARISON STUDY: None FINDINGS: Interval laminectomy and fusion from L2 through L5. The metallic hardware including interpedicular screws appear intact. Minimal grade 1 anterolisthesis of L3 on L4. Vertebral body stature is normal. Postoperative surgical drains are present. IMPRESSION: Operative findings consistent with laminectomy and fusion L2-L5. Hardware is intact. The above report was generated using voice recognition software. It may contain grammatical, syntax or spelling errors. Electronically signed by: Isael Calderon M.D. 01/21/2018 8:48 AM Dictated Date/Time: 01/21/2018 8:47 AM
[2018-01-21] MEDS: INSULIN GLARGINE SOLOSTAR 100 UNITS/ML 3 ML PEN SC SCH ×2 (09:00→21:00)
[2018-01-21] MEDS: CITALOPRAM 20 MG TAB PO SCH (09:08)
[2018-01-21] MEDS: DIGOXIN 0.125 MG TAB PO SCH (09:09)
[2018-01-21] MEDS: METOPROLOL TARTRATE 25 MG TAB PO SCH ×2 (09:09→21:59)
[2018-01-21] MEDS ORDERED: FUROSEMIDE INJ 120 MG in SYRINGE 0 ML IV ONE (09:40)
[2018-01-21] MEDS: OXYCODONE HCL IR 5 MG TAB (IMMEDIATE RELEASE) PO PRN (10:22)
--- NOTE | 2018-01-21 10:39 | Nephrology Progress Note ---
Nephrology Progress Note Date of Service Jan 21, 2018. Chief Complaint F/U for acute kidney injury. Subjective Maxim was seen examined in his room this morning. Continues to have significant back pain,, lumbar x ray this am fine. Creatinine seems to have peaked, staying from 4.9-5.0, electrolyte acceptable. Blood pressure running high, continues to be volume overloaded. Has been urinating well, net negative. Review of Systems A complete review of systems was performed. Pertinent positives are noted above. All other systems are negative. Vital Signs Last 8 Hrs Date Time Temp Pulse Resp B/P (MAP) Pulse Ox O2 Delivery O2 Flow Rate FiO2 01/21/18 07:16 36.8 79 16 179/84 (115) 94 Nasal Cannula 2.0 Last Recorded Weight Weight (Kilograms): 99.200 Physical Exam GENERAL: elderly male, AAA x 3, pleasant, healthy-appearing, not in any distress. NECK: Supple, no JVD. RESPIRATORY: Normal breathing efforts, no accessory muscle use, clear to auscultation bilaterally, no wheezes or rales. CARDIOVASCULAR: S1, S2 normal, rate rhythm regular. EXTREMITY: Trace b/l lower extremity edema NEURO: speech fluent. 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0 Estimated GFR (Non- 10.4 BUN/Creatinine Ratio 13.0 (10-20) Calcium Level 8.1 mg/dl (8.5-10.1) Magnesium Level 2.0 mg/dl (1.8-2.4) Allergies Coded Allergies: No Known Allergies (Unverified , 01/17/18) Medications Current Inpatient Medications Medications (Trade) Dose Ordered Sig/Dianne Route Start Time Stop Time Status Last Admin Dose Admin Acetaminophen (Tylenol Tab) 650 mg Q4H PRN PO 01/14/18 10:30 02/13/18 10:29 Polyethylene (Miralax Powder Packet) 17 gm DAILY PRN PO 01/14/18 11:45 02/13/18 11:44 Ondansetron HCl (Zofran Inj) 4 mg Q6H PRN IV 01/14/18 10:30 02/13/18 10:29 01/19/18 12:46 4 MG Citalopram Hydrobromide (celeXA TAB) 20 mg QAM PO 01/15/18 09:00 02/14/18 08:59 Future hold 01/20/18 09:28 20 MG Digoxin (Lanoxin Tab) 0.125 mg QAM PO 01/15/18 09:00 02/14/18 08:59 Future hold 01/20/18 09:29 0.125 MG Levothyroxine Sodium (Synthroid Tab) 100 mcg DAILYBB PO 01/15/18 06:00 02/14/18 05:59 01/21/18 05:34 100 MCG Metoprolol Tartrate (Lopressor Tab) 25 mg BID PO 01/14/18 21:00 02/13/18 20:59 01/20/18 20:55 25 MG Miscellaneous Information (Order Awaiting Action) 1 ea QS N/A 01/14/18 16:00 02/13/18 15:59 Ranitidine HCl (zANTac TAB) 300 mg HS PO 01/14/18 21:00 02/13/18 20:59 01/20/18 20:59 300 MG Glucose (Glucose 40% Gel) 15-30 GRAMS 15 GRAMS... UD PRN PO 01/14/18 11:45 02/13/18 11:44 Glucose (Glucose Chew Tab) 4-8 Tablets 4 Tabl... UD PRN PO 01/14/18 11:45 02/13/18 11:44 Dextrose (Dextrose 50% 50ML Syringe) 25-50ML OF 50% DW IV FOR... UD PRN IV 01/14/18 11:45 02/13/18 11:44 Glucagon (Glucagon Inj) 1 mg UD PRN SQ 01/14/18 11:45 02/13/18 11:44 Miscellaneous (Iv Fluids Completed) 1 ea PRN PRN N/A 01/14/18 16:15 01/14/19 16:14 Insulin Glargine (Lantus Solostar Pen) 15 units BID SC 01/16/18 21:00 02/13/18 20:59 Future hold 01/20/18 09:33 15 UNITS Hydralazine HCl (HydrALAZINE INJ) 20 mg Q6 PRN IV. 01/17/18 08:45 02/13/18 11:14 Promethazine HCl 12.5 mg/Sodium Chloride 50.5 ml @ 202 mls/hr Q6H PRN IV 01/17/18 16:45 02/16/18 16:44 Ondansetron HCl (Zofran Inj) 4 mg Q6H PRN IV 01/17/18 16:45 02/16/18 16:44 Metoclopramide HCl (Reglan Inj) 10 mg Q6H PRN IV 01/17/18 16:45 02/16/18 16:44 Lorazepam (Ativan Tab) 0.5 mg Q8H PRN PO 01/17/18 16:45 02/16/18 16:44 Lorazepam 0.5 mg/ Syringe 0.25 ml @ 1 mls/min Q8H PRN IV 01/17/18 16:45 02/16/18 16:44 Pneumococcal Polysaccharide Vaccine 1 ea PRN PRN N/A 01/17/18 16:45 02/16/18 16:44 Influenza Virus Vacc Triv Types A&B 1 ea PRN PRN N/A 01/17/18 16:45 02/16/18 16:44 Bisacodyl (Dulcolax Supp) 10 mg DAILY PRN [place] 01/17/18 16:45 02/16/18 16:44 Magnesium Hydroxide (Milk Of Magnesia Susp) 30 ml DAILY PRN PO 01/17/18 16:45 02/16/18 16:44 Acetaminophen (Tylenol Tab) 1,000 mg Q8H PRN PO 01/17/18 16:45 02/16/18 16:44 01/17/18 23:08 1,000 MG Acetaminophen 100 ml @ 400 mls/hr Q8H PRN IV 01/17/18 16:45 02/16/18 16:44 01/21/18 08:14 400 MLS/HR Naloxone HCl (Narcan Inj) 0.1 mg Q5M PRN IV 01/17/18 16:45 02/16/18 16:44 Senna/Docusate Sodium (Senokot S Tab) 2 tab HS PO 01/17/18 21:00 02/16/18 20:59 01/19/18 21:39 2 TAB Hydroxyzine HCl (Vistaril Tab) 25 mg Q8H PRN PO 01/17/18 16:45 02/16/18 16:44 Al Hydroxide/Mg Hydroxide (Maalox Susp) 30 ml Q6H PRN PO 01/17/18 16:45 02/16/18 16:44 Famotidine (Pepcid Tab) 20 mg Q12 PRN PO 01/17/18 16:45 02/16/18 16:44 Diphenhydramine HCl (Benadryl Cap) 25 mg Q6H PRN PO 01/17/18 16:45 02/16/18 16:44 Oxycodone HCl (Oxycontin Tab) 10 mg Q12H PO 01/18/18 17:00 02/01/18 16:59 01/21/18 05:34 10 MG Oxycodone HCl (Roxicodone Immediate Rel Tab) 5-10mg prn moderate to sev... Q4H PRN PO 01/19/18 11:45 02/02/18 11:44 01/19/18 15:47 10 MG Cyclobenzaprine HCl (Flexeril Tab) 5 mg BID PRN PO 01/20/18 11:45 02/19/18 11:44 Insulin Aspart (novoLOG ASPART) SLIDING SCALE G... ACHS SC 3/29/18 17:15 02/19/18 17:14 Impression 77-year-old gentlemen with stage 3 chronic kidney disease baseline creatinine around 1.7, admitted to the hospital for the laminectomy. Post surgery he was found to have acute kidney injury creatinine was 3.5 which progressively worsened to 3.8 this morning. He became anuric. Electrolyte currently remain acceptable. He was on Lasix and Toradol which was discontinued. Urinalysis positive for hematuria, proteinuria and pyuria. Renal ultrasound unremarkable. No significant hypotensive episode. Differentials include hemodynamically mediated ATN, acute interstitial nephritis or rapidly progressive glomerulonephritis. Recommendations --renal function remained stable, patient responding to diuretics, negative more than 2 liters, electrolyte acceptable. --Lasix 120 IV 1 dose --no urgent need for renal replacement therapy at this point, will continue to monitor renal function and urine output while we wait for the result of the serological study. --discussed in detail with pts daughter Carol Madrid ) Will follow
[2018-01-21] MEDS ORDERED: ALBUT/IPRATROP 3MG/0.5MG NEB 3 ML VIAL INH PRN (11:00)
[2018-01-21] MEDS: ALBUT/IPRATROP 3MG/0.5MG NEB 3 ML VIAL INH SCH ×2 (15:00→19:08)
--- NOTE | 2018-01-21 21:08 | Progress Note ---
Subjective Date of Service: Jan 21, 2018. Subjective Pt evaluation today including: conversation w/ patient, conversation w/ family , physical exam, chart review, lab review, review of studies, conversation w/ payroll consultant, review of inpatient medication list pain fairly controlled, but need NC O2, osat drop to 70's when off nc O2, he dose not need NC o2 prior to this admission, has bm yesterday Review of Systems Constitutional: + weakness, + fatigue, No fever, No chills, No sweats, No weight loss, No problem reported Eyes: No worsening of vision, No eye pain, No redness, No discharge, No diplopia ENT: No hearing loss, No unusual epistaxis, No nasal symptoms, No sore throat, No tinnitus, No dental problems, No trouble swallowing Respiratory: + shortness of breath, + dyspnea on exertion, No cough, No sputum , No wheezing, No dyspnea at rest, No hemoptysis Cardiac: + edema, No chest pain, No orthopnea, No PND, No claudication, No palpitations Abdomen: No pain, No nausea, No vomiting, No diarrhea, No constipation Musculoskeletal: + joint pain, No muscle pain, No swelling, No calf pain Male : No dysuria, No urinary frequency, No incontinence, No nocturia more than once/night, No slowing stream, No hematuria Neurologic: No memory loss, No paralysis, No weakness, No numbness/tingling, No vertigo, No balance problems Psychiatric: No depression symptoms, No anhedonism, No anxiety, No insomnia, No substance abuse Heme: No abnormal bleeding/bruising, No clotting problems, No swollen lymph nodes, No night sweats Endo: No fatigue, No excessive thirst, No excessive urination Skin: No rash, No itch, No new/changing skin lesions, No color change, No bleeding Objective Vital Signs Date Time Temp Pulse Resp B/P (MAP) Pulse Ox O2 Delivery O2 Flow Rate FiO2 01/21/18 19:08 68 16 95 Nasal Cannula 2.0 01/21/18 15:40 97 Nasal Cannula 1.0 01/21/18 15:17 37.0 62 17 127/76 (93) 97 Nasal Cannula 2.0 01/21/18 15:01 63 16 95 Nasal Cannula 2.0 01/21/18 09:10 126/73 (90) 3/30/18 09:09 70 01/21/18 08:00 Nasal Cannula 1.0 01/21/18 07:16 36.8 79 16 179/84 (115) 94 Nasal Cannula 2.0 01/20/18 23:35 Nasal Cannula 1.0 01/20/18 22:48 37.1 72 16 136/69 (91) 95 Nasal Cannula 2.0 Physical Exam General Appearance: WD/WN, no apparent distress, + obese Eyes: normal inspection, PERRL, EOMI, sclerae normal ENT: normal ENT inspection, hearing grossly normal, pharynx normal Neck: supple, no adenopathy, thyroid normal, no JVD, no carotid bruits, trachea midline Respiratory/Chest: chest non-tender, normal breath sounds, no respiratory distress, no accessory muscle use, + decreased breath sounds Cardiovascular: regular rate, rhythm, no gallop, no JVD, no murmur Abdomen: normal bowel sounds, non tender, soft, no organomegaly, no pulsatile mass Extremities: normal range of motion, non-tender, normal inspection, no pedal edema, no calf tenderness, normal capillary refill, pelvis stable, + swelling 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, no motor/sensory deficits, alert, normal mood/affect, oriented x 3 Skin: normal color, warm/dry, no rash Lymphatic: no adenopathy Laboratory Results Last 24 Hours Test 01/21/18 07:45 01/21/18 11:54 01/21/18 17:03 01/21/18 20:05 White Blood Count 9.96 K/uL Red Blood Count 3.71 M/uL Hemoglobin 10.0 g/dL Hematocrit 32.1 % Mean Corpuscular Volume 86.5 fL Mean Corpuscular Hemoglobin 27.0 pg Mean Corpuscular Hemoglobin Concent 31.2 g/dl RDW Standard Deviation 50.2 fL RDW Coefficient of Variation 15.7 % Platelet Count 168 K/uL Mean Platelet Volume 10.5 fL Sodium Level 139 mmol/L Potassium Level 4.7 mmol/L Chloride Level 109 mmol/L Carbon Dioxide Level 21 mmol/L Anion Gap 9.0 mmol/L Blood Urea Nitrogen 65 mg/dl Creatinine 4.98 mg/dl Est Creatinine Clear Calc Drug Dose 14.4 ml/min Estimated GFR () 12.0 Estimated GFR (Non- 10.4 BUN/Creatinine Ratio 13.0 Random Glucose 87 mg/dl Calcium Level 8.1 mg/dl Magnesium Level 2.0 mg/dl Bedside Glucose 93 mg/dl 100 mg/dl 105 mg/dl Assessment and Plan 77 yo male admitted with with acute pulmonary edema due to noncompliance with Lasix Acute on Chronic Diastolic CHF 2/2 upon admission, Non-Compliance: STABLE, Acute on chronic kidney failure, continue worsening creatinine level, checked renal ultrasound is unremarkable, avoid renal offensive medication include lisinopril, NSAIDs, renal input appreciated, pt started to make urine and responding to diuretics, per Lasix challenge, no urgent need of HD for now per renal Recent UTI (as outpatient) - Citrobacter: RESOLVED T2DM Hypothyroidism: STABLE Lumbar Spinal Stenosis S/P Decompression: Continue oxycodone, continue pain control, possible rehab Gi , DVt px Continued [facility] stay due to: inadequate oral pain control, ambulation difficulties Discharge planning: rehab hospital
[2018-01-21] MEDS: BOOST VANILLA PUDDING CUP PO SCH (21:58)
[2018-01-21] MEDS: DOCUSATE SODIUM/SENNA 50/8.6MG TAB PO SCH (21:59)
[2018-01-21] MEDS: RANITIDINE HCL 150 MG TAB PO SCH (22:00)
[2018-01-22] VITALS (9 sets, daily range): BP systolic 148–164; BP diastolic 73–75; PULSE 65–81; TEMP 36.8–37.1; O2SAT 88–97
[2018-01-22] MEDS: OXYCODONE HCL 10 MG TABCR (OXYCONTIN) PO SCH ×2 (04:52→17:29)
[2018-01-22] MEDS: LEVOTHYROXINE 100 MCG TAB PO SCH (04:53)
[2018-01-22] MEDS: ALBUT/IPRATROP 3MG/0.5MG NEB 3 ML VIAL INH SCH ×4 (07:18→19:14)
[2018-01-22] MEDS: OXYCODONE HCL IR 5 MG TAB (IMMEDIATE RELEASE) PO PRN ×2 (07:34→15:52)
[2018-01-22] MEDS: INSULIN ASPART 100 UNITS/ML 3 ML PEN SC SCH ×4 (08:00→21:00)
--- NOTE | 2018-01-22 08:27 | Orthopedic Progress Note ---
Orthopedic Progress Note Date of Service Jan 22, 2018. Subjective Post OP Day: 5 Additional Notes: Camacho postoperative day 5 lumbar decompression fusion. His physical therapy is currently on hold. He did transition to a chair yesterday. JULISA drain output last shift was 20 cc. He notes leg weakness but no radicular leg pain. Lumbar x-rays were performed yesterday which show hardware to be in appropriate alignment and intact. Still seems to be struggling with pain control issues with his lower back. Although it was noted that he has not received any type of pain medicine in the past 21 hours. Objective calves soft nontender, dressing C/D/I He is lying in bed. No obvious distress. Lower extremities are nervous intact. Calves are soft nontender bilaterally. Date Time Temp Pulse Resp B/P (MAP) Pulse Ox O2 Delivery O2 Flow Rate FiO2 01/22/18 08:16 Room Air 01/22/18 07:28 37.1 81 18 164/75 (104) 96 Nasal Cannula 2.0 01/22/18 07:18 81 16 96 Nasal Cannula 2.0 01/21/18 23:15 Nasal Cannula 1.0 01/21/18 22:54 37.0 77 14 126/69 (88) 94 Nasal Cannula 2.0 01/21/18 21:44 75 125/68 (87) 01/21/18 19:08 68 16 95 Nasal Cannula 2.0 01/21/18 15:40 97 Nasal Cannula 1.0 01/21/18 15:17 37.0 62 17 127/76 (93) 97 Nasal Cannula 2.0 01/21/18 15:01 63 16 95 Nasal Cannula 2.0 01/21/18 09:10 126/73 (90) 01/21/18 09:09 70 Assessment & Plan Assessment: Postop day 5 multilevel lumbar decompression fusion with continued back pain. Also has acute kidney injury. CHF has resolved. He has completed treatment for UTI Plan: We will still continue to place physical therapy on hold today. May consider reinitiating this tomorrow. Can try for better pain control today. He does have IV Tylenol and oral oxycodone ordered. ALETHEA EGAN drain and dressing change today. We are obviously being cautious with narcotics in him. Unable to use Toradol secondary to his kidney issues. DVT prophylaxis in the form of teds and SCDs. We are going very slowly with physical therapy. Once he is medically stable he will be transferred to [facility]. This is at an unknown date. Inhouse Planning DVT Prophylaxis: Sterling Matthew Discharge Planning Discharge Planning: rehab hospital DVT Prophylaxis: Vipul
[2018-01-22 08:39] LABS: CALCIUM 8.1 mg/dl (8.5-10.1); CREATININE 4.72 mg/dl (0.60-1.40); POTASSIUM 4.6 mmol/L (3.5-5.1)
[2018-01-22] MEDS: CITALOPRAM 20 MG TAB PO SCH (09:00)
[2018-01-22] MEDS: BOOST VANILLA PUDDING CUP PO SCH ×2 (09:00→21:00)
[2018-01-22] MEDS: METOPROLOL TARTRATE 25 MG TAB PO SCH ×2 (09:00→21:25)
[2018-01-22] MEDS: DIGOXIN 0.125 MG TAB PO SCH (09:03)
[2018-01-22] MEDS: INSULIN GLARGINE SOLOSTAR 100 UNITS/ML 3 ML PEN SC SCH ×2 (09:07→21:33)
[2018-01-22] MEDS: ACETAMINOPHEN 325 MG TAB PO PRN (11:16)
--- NOTE | 2018-01-22 12:16 | Nephrology Progress Note ---
Nephrology Progress Note Date of Service Jan 22, 2018. Chief Complaint TANNER Subjective No acute events overnight. Camacho was seen and evaluated in his hospital room this morning. Family was present at the bedside. The patient was resting comfortably in a chair. He reports improving strength. He is very tired. Camacho states that he is not sleeping well. Pain control appears appropriate. The family reports that Mr. Gonsalez developed confusion following pain medications overnight. He was receiving Tylenol. He did receive oxycodone this morning and was noted to be lethargic following the medication. He has not had any fevers or chills. Review of Systems A complete review of systems was performed. Pertinent positives are noted above. All other systems are negative. Vital Signs Last 8 Hrs Date Time Temp Pulse Resp B/P (MAP) Pulse Ox O2 Delivery O2 Flow Rate FiO2 01/22/18 11:22 75 16 95 Nasal Cannula 2.0 01/22/18 09:03 76 01/22/18 08:40 37.1 81 18 164/75 (104) 96 Nasal Cannula 2.0 01/22/18 08:16 Room Air 01/22/18 07:28 37.1 81 18 164/75 (104) 96 Nasal Cannula 2.0 01/22/18 07:18 81 16 96 Nasal Cannula 2.0 Last Recorded Weight Weight (Kilograms): 99.200 Physical Exam General Appearance: WD/WN, no apparent distress Head: normocephalic, atraumatic Eyes: normal inspection, sclerae normal ENT: normal ENT inspection, pharynx normal Neck: supple, no JVD Respiratory/Chest: no respiratory distress, no accessory muscle use, + rales ( few basilar) Cardiovascular: regular rate, rhythm, no gallop Back: no CVA tenderness Abdomen/GI: non tender, soft Extremities/Musculoskelatal: normal inspection, no pedal edema Neurologic/Psych: alert, normal mood/affect Social History Alcohol Use: none Marital Status: Housing Status: lives with family 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) Laboratory Results Past 24 Hours 01/22/18 07:58 Test 01/21/18 17:03 01/21/18 20:05 01/22/18 07:58 01/22/18 08:08 Bedside Glucose 100 mg/dl (70-99) 105 mg/dl (70-99) 129 mg/dl (70-99) Anion Gap 8.0 mmol/L (3-11) Est Creatinine Clear Calc Drug Dose 15.2 ml/min Estimated GFR () 12.8 Estimated GFR (Non- 11.1 BUN/Creatinine Ratio 16.0 (10-20) Calcium Level 8.1 mg/dl (8.5-10.1) Magnesium Level 2.0 mg/dl (1.8-2.4) Allergies Coded Allergies: No Known Allergies (Unverified , 01/17/18) Medications Current Inpatient Medications Medications (Trade) Dose Ordered Sig/Dianne Route Start Time Stop Time Status Last Admin Dose Admin Acetaminophen (Tylenol Tab) 650 mg Q4H PRN PO 01/14/18 10:30 02/13/18 10:29 01/22/18 11:16 650 MG Polyethylene (Miralax Powder Packet) 17 gm DAILY PRN PO 01/14/18 11:45 02/13/18 11:44 01/22/18 11:15 17 GM Ondansetron HCl (Zofran Inj) 4 mg Q6H PRN IV 01/14/18 10:30 02/13/18 10:29 01/19/18 12:46 4 MG Citalopram Hydrobromide (celeXA TAB) 20 mg QAM PO 01/15/18 09:00 02/14/18 08:59 Future hold 01/22/18 09:00 20 MG Digoxin (Lanoxin Tab) 0.125 mg QAM PO 01/15/18 09:00 02/14/18 08:59 Future hold 01/22/18 09:03 0.125 MG Levothyroxine Sodium (Synthroid Tab) 100 mcg DAILYBB PO 01/15/18 06:00 02/14/18 05:59 01/22/18 04:53 100 MCG Metoprolol Tartrate (Lopressor Tab) 25 mg BID PO 01/14/18 21:00 02/13/18 20:59 01/22/18 09:00 25 MG Miscellaneous Information (Order Awaiting Action) 1 ea QS N/A 01/14/18 16:00 02/13/18 15:59 Ranitidine HCl (zANTac TAB) 300 mg HS PO 01/14/18 21:00 02/13/18 20:59 01/21/18 22:00 300 MG Glucose (Glucose 40% Gel) 15-30 GRAMS 15 GRAMS... UD PRN PO 01/14/18 11:45 02/13/18 11:44 Glucose (Glucose Chew Tab) 4-8 Tablets 4 Tabl... UD PRN PO 01/14/18 11:45 02/13/18 11:44 Dextrose (Dextrose 50% 50ML Syringe) 25-50ML OF 50% DW IV FOR... UD PRN IV 01/14/18 11:45 02/13/18 11:44 Glucagon (Glucagon Inj) 1 mg UD PRN SQ 01/14/18 11:45 02/13/18 11:44 Miscellaneous (Iv Fluids Completed) 1 ea PRN PRN N/A 01/14/18 16:15 01/14/19 16:14 Insulin Glargine (Lantus Solostar Pen) 15 units BID SC 01/16/18 21:00 02/13/18 20:59 Future hold 01/22/18 09:07 15 UNITS Hydralazine HCl (HydrALAZINE INJ) 20 mg Q6 PRN IV. 01/17/18 08:45 02/13/18 11:14 Promethazine HCl 12.5 mg/Sodium Chloride 50.5 ml @ 202 mls/hr Q6H PRN IV 01/17/18 16:45 02/16/18 16:44 Ondansetron HCl (Zofran Inj) 4 mg Q6H PRN IV 01/17/18 16:45 02/16/18 16:44 Metoclopramide HCl (Reglan Inj) 10 mg Q6H PRN IV 01/17/18 16:45 02/16/18 16:44 Lorazepam (Ativan Tab) 0.5 mg Q8H PRN PO 01/17/18 16:45 02/16/18 16:44 Lorazepam 0.5 mg/ Syringe 0.25 ml @ 1 mls/min Q8H PRN IV 01/17/18 16:45 02/16/18 16:44 Pneumococcal Polysaccharide Vaccine 1 ea PRN PRN N/A 01/17/18 16:45 02/16/18 16:44 Influenza Virus Vacc Triv Types A&B 1 ea PRN PRN N/A 01/17/18 16:45 02/16/18 16:44 Bisacodyl (Dulcolax Supp) 10 mg DAILY PRN NM 01/17/18 16:45 02/16/18 16:44 Magnesium Hydroxide (Milk Of Magnesia Susp) 30 ml DAILY PRN PO 01/17/18 16:45 02/16/18 16:44 Acetaminophen (Tylenol Tab) 1,000 mg Q8H PRN PO 01/17/18 16:45 02/16/18 16:44 01/17/18 23:08 1,000 MG Acetaminophen 100 ml @ 400 mls/hr Q8H PRN IV 01/17/18 16:45 02/16/18 16:44 01/21/18 08:14 400 MLS/HR Naloxone HCl (Narcan Inj) 0.1 mg Q5M PRN IV 01/17/18 16:45 02/16/18 16:44 Senna/Docusate Sodium (Senokot S Tab) 2 tab HS PO 01/17/18 21:00 02/16/18 20:59 01/21/18 21:59 2 TAB Hydroxyzine HCl (Vistaril Tab) 25 mg Q8H PRN PO 01/17/18 16:45 02/16/18 16:44 Al Hydroxide/Mg Hydroxide (Maalox Susp) 30 ml Q6H PRN PO 01/17/18 16:45 02/16/18 16:44 Famotidine (Pepcid Tab) 20 mg Q12 PRN PO 01/17/18 16:45 02/16/18 16:44 Diphenhydramine HCl (Benadryl Cap) 25 mg Q6H PRN PO 01/17/18 16:45 02/16/18 16:44 Oxycodone HCl (Oxycontin Tab) 10 mg Q12H PO 01/18/18 17:00 02/01/18 16:59 01/22/18 04:52 10 MG Oxycodone HCl (Roxicodone Immediate Rel Tab) 5-10mg prn moderate to sev... Q4H PRN PO 01/19/18 11:45 02/02/18 11:44 01/22/18 07:34 10 MG Cyclobenzaprine HCl (Flexeril Tab) 5 mg BID PRN PO 01/20/18 11:45 02/19/18 11:44 Insulin Aspart (novoLOG ASPART) SLIDING SCALE G... ACHS SC 01/20/18 17:15 02/19/18 17:14 Albuterol/ Ipratropium (Duoneb) 3 ml QIDR INH 01/21/18 12:00 02/20/18 11:59 01/22/18 11:21 3 ML Albuterol/ Ipratropium (Duoneb) 3 ml Q2H PRN INH 01/21/18 11:00 02/20/18 10:59 Enteral Nutritional Formula (Boost Pudding) 1 cup BID PO 01/21/18 21:00 02/20/18 20:59 01/22/18 09:00 1 CUP Impression (1) TANNER (acute kidney injury) (2) ATN (acute tubular necrosis) (3) Acute on chronic diastolic (congestive) heart failure (4) chf exac, and worsening spinal stenosis (5) Lumbar stenosis with neurogenic claudication Mr. Gonsalez is a 77-year-old male with chronic kidney disease III ( baseline creatinine around 1.7). He is POD#5 s/p laminectomy with lumbar fusion. Post operative course has been complicated by TANNER consistent with ATN. ATN attributed to hemodynamic changes and NSAID use. He was oliguric but urine output has improved. Minimal fluid losses via JULISA drain. Rodarte catheter to be removed today. Electrolyte currently remain acceptable. Creatinine has plateaued. Urinalysis positive for hematuria, proteinuria and pyuria. Renal ultrasound unremarkable. Recommendations -- Rodarte removed for voiding trial -- Medications appropriate for renal function: continue to avoid NSAIDS and suggest avoiding muscle relaxants -- Creatinine plateaued and metabolic profile is otherwise acceptable -- Urine output acceptable -- Patient had a reasonable response to furosemide yesterday -- Will provided additional 80 mg of oral furosemide today (good response to 120 mg IV yesterday), goal to encourage slightly negative fluid balance, UOP appears to be improving with diuresis
[2018-01-22] MEDS ORDERED: FUROSEMIDE 80 MG TAB PO ONE (12:30)
[2018-01-22] MEDS ORDERED: SOD PHOSPHATE/SOD BIPHOSPHATE ENEMA 132 ML BTL PR PRN (15:45)
--- NOTE | 2018-01-22 15:46 | Progress Note ---
Subjective Date of Service: Jan 22, 2018. Subjective Pt evaluation today including: conversation w/ patient, physical exam, chart review, lab review, review of studies tired, still report lower back pain 7 out of 10, documented bowel movement yesterday and today so far, abdomen possible distended, decreased appetite Review of Systems Constitutional: + weakness, + fatigue, No fever, No chills, No sweats, No weight loss, No problem reported Eyes: No worsening of vision, No eye pain, No redness, No discharge, No diplopia ENT: No hearing loss, No unusual epistaxis, No nasal symptoms, No sore throat, No tinnitus, No dental problems, No trouble swallowing Respiratory: No cough, No sputum, No wheezing, No shortness of breath, No dyspnea on exertion, No dyspnea at rest, No hemoptysis Cardiac: No chest pain, No orthopnea, No PND, No edema, No claudication, No palpitations Abdomen: + constipation, No pain, No nausea, No vomiting, No diarrhea Musculoskeletal: + joint pain, No muscle pain, No swelling, No calf pain Male : No dysuria, No urinary frequency, No incontinence, No nocturia more than once/night, No slowing stream, No hematuria Neurologic: No memory loss, No paralysis, No weakness, No numbness/tingling, No vertigo, No balance problems Psychiatric: No depression symptoms, No anhedonism, No anxiety, No insomnia, No substance abuse Heme: No abnormal bleeding/bruising, No clotting problems, No swollen lymph nodes, No night sweats Endo: No fatigue, No excessive thirst, No excessive urination Skin: No rash, No itch, No new/changing skin lesions, No color change, No bleeding Objective Vital Signs Date Time Temp Pulse Resp B/P (MAP) Pulse Ox O2 Delivery O2 Flow Rate FiO2 01/22/18 15:19 36.8 69 20 148/74 (98) 96 Nasal Cannula 2.0 01/22/18 15:16 Nasal Cannula 2.0 01/22/18 14:54 77 16 95 Nasal Cannula 2.0 01/22/18 11:22 75 16 95 Nasal Cannula 2.0 01/22/18 09:03 76 01/22/18 08:40 37.1 81 18 164/75 (104) 96 Nasal Cannula 2.0 01/22/18 08:16 Room Air 01/22/18 07:28 37.1 81 18 164/75 (104) 96 Nasal Cannula 2.0 01/22/18 07:18 81 16 96 Nasal Cannula 2.0 01/21/18 23:15 Nasal Cannula 1.0 01/21/18 22:54 37.0 77 14 126/69 (88) 94 Nasal Cannula 2.0 01/21/18 21:44 75 125/68 (87) 01/21/18 19:08 68 16 95 Nasal Cannula 2.0 Physical Exam General Appearance: WD/WN, no apparent distress, + obese Eyes: normal inspection, PERRL, EOMI, sclerae normal ENT: normal ENT inspection, hearing grossly normal, pharynx normal Neck: supple, no adenopathy, thyroid normal, no JVD, no carotid bruits, trachea midline Respiratory/Chest: chest non-tender, normal breath sounds, no respiratory distress, no accessory muscle use, + decreased breath sounds Cardiovascular: regular rate, rhythm, no edema, no gallop, no JVD, no murmur Abdomen: normal bowel sounds, non tender, soft, no organomegaly, no pulsatile mass, + pertinent finding (Rodarte catheter was impaired) Extremities: normal range of motion, non-tender, normal inspection, no pedal edema, no calf tenderness, normal capillary refill, pelvis stable Neurologic/Psychiatric: hands hanger II-XII nml as tested, no motor/sensory deficits, alert, normal mood/affect, oriented x 3 Skin: normal color, warm/dry, no rash Lymphatic: no adenopathy Laboratory Results Last 24 Hours Test 01/21/18 17:03 01/21/18 20:05 01/22/18 07:58 01/22/18 08:08 Bedside Glucose 100 mg/dl 105 mg/dl 129 mg/dl Sodium Level 140 mmol/L Potassium Level 4.6 mmol/L Chloride Level 110 mmol/L Carbon Dioxide Level 22 mmol/L Anion Gap 8.0 mmol/L Blood Urea Nitrogen 76 mg/dl Creatinine 4.72 mg/dl Est Creatinine Clear Calc Drug Dose 15.2 ml/min Estimated GFR () 12.8 Estimated GFR (Non- 11.1 BUN/Creatinine Ratio 16.0 Random Glucose 119 mg/dl Calcium Level 8.1 mg/dl Magnesium Level 2.0 mg/dl Test 3/31/18 12:06 Bedside Glucose 133 mg/dl Assessment and Plan 77 yo male admitted with with acute pulmonary edema due to noncompliance with Lasix Acute on Chronic Diastolic CHF 2/2 upon admission, Non-Compliance: STABLE, Acute on chronic kidney failure, continue worsening creatinine level, checked renal ultrasound is unremarkable, avoid renal offensive medication include lisinopril, NSAIDs, renal input appreciated, pt started to make urine and responding to diuretics, continue , Lasix challenge, no urgent need of HD for now per renal Constipation with no bowel movement for 2 days, talk to nurse staff suppository now and fleet enema if needed, patient using narcotic medications we need to watch constipation Recent UTI (as outpatient) - Citrobacter: RESOLVED T2DM Hypothyroidism: STABLE Lumbar Spinal Stenosis S/P Decompression: Continue oxycodone, continue pain control, possible rehab DC Rodarte catheter today try to allow him voiding trial Gi , DVt px Continued [facility] stay due to: inadequate oral pain control, ambulation difficulties Discharge planning: rehab hospital
[2018-01-22 20:29] LABS: ANA SCREEN TC 249X NEGATIVE (NEGATIVE); COMPLEMENT C3 TC 44859W 112 MG/DL (90-180); COMPLEMENT C4 TC 44982E 21 MG/DL (16-47)
[2018-01-22] MEDS: DOCUSATE SODIUM/SENNA 50/8.6MG TAB PO SCH (21:25)
[2018-01-22] MEDS: RANITIDINE HCL 150 MG TAB PO SCH (21:25)
[2018-01-23] VITALS (10 sets, daily range): BP systolic 109–168; BP diastolic 61–81; PULSE 61–90; TEMP 36.5–36.9; O2SAT 90–98
[2018-01-23] MEDS: OXYCODONE HCL 10 MG TABCR (OXYCONTIN) PO SCH (05:11)
[2018-01-23] MEDS: LEVOTHYROXINE 100 MCG TAB PO SCH (05:12)
[2018-01-23 06:26] LABS: CALCIUM 8.1 mg/dl (8.5-10.1); CREATININE 4.29 mg/dl (0.60-1.40); POTASSIUM 4.4 mmol/L (3.5-5.1)
[2018-01-23] MEDS: ALBUT/IPRATROP 3MG/0.5MG NEB 3 ML VIAL INH SCH ×4 (07:23→19:27)
[2018-01-23] MEDS: INSULIN ASPART 100 UNITS/ML 3 ML PEN SC SCH ×5 (08:00→21:00)
--- NOTE | 2018-01-23 08:56 | Orthopedic Progress Note ---
Orthopedic Progress Note Date of Service Jan 23, 2018. Subjective Additional Notes: Mr. Rosa's postoperative day 6 multilevel lumbar decompression fusion. Pain seems to be under better control over the past 24 hours although he is still quite frustrated. No radicular pain. He was not up and ambulatory in the hallways with assistance yesterday. He was more compliant with pain medication yesterday. He has had a bowel movement. Still has considerable cough and congestion. Still has his oxygen level saturations dropping even at rest. Objective calves soft nontender, N/V intact, dressing C/D/I He sitting in chair this morning. No obvious distress. Calf is soft nontender bilaterally. He is able to lean forward with me without much difficulty. Lumbar dressing is clean dry and intact. Date Time Temp Pulse Resp B/P (MAP) Pulse Ox O2 Delivery O2 Flow Rate FiO2 01/23/18 07:54 36.7 69 20 168/81 (110) 96 Nasal Cannula 2.0 01/23/18 07:23 61 16 98 Nasal Cannula 2.0 01/22/18 23:30 Nasal Cannula 2.0 01/22/18 23:17 96 Nasal Cannula 2.0 01/22/18 23:13 37.1 78 16 152/73 (99) 88 Room Air 01/22/18 19:16 65 14 97 Nasal Cannula 2.0 01/22/18 15:19 36.8 69 20 148/74 (98) 96 Nasal Cannula 2.0 01/22/18 15:16 Nasal Cannula 2.0 01/22/18 14:54 77 16 95 Nasal Cannula 2.0 01/22/18 11:22 75 16 95 Nasal Cannula 2.0 01/22/18 09:03 76 Assessment & Plan Assessment: Postop day 6 multilevel lumbar decompression fusion with continued back pain. Also has acute kidney injury. CHF has resolved. He has completed treatment for UTI Plan: We will still continue to place physical therapy on hold today. May consider reinitiating this tomorrow. Can try for better pain control today. He does have IV Tylenol and oral oxycodone ordered. We are obviously being cautious with narcotics in him. Unable to use Toradol secondary to his kidney issues. DVT prophylaxis in the form of teds and SCDs. We are going very slowly with physical therapy. Once he is medically stable he will be transferred to [facility]. This is at an unknown date. Inhouse Planning DVT Prophylaxis: JORJE Matthews Discharge Planning Discharge Planning: rehab hospital DVT Prophylaxis: Vipul
[2018-01-23] MEDS: DIGOXIN 0.125 MG TAB PO SCH (08:58)
[2018-01-23] MEDS: BOOST VANILLA PUDDING CUP PO SCH ×2 (08:58→21:09)
[2018-01-23] MEDS: METOPROLOL TARTRATE 25 MG TAB PO SCH ×2 (08:59→21:13)
[2018-01-23] MEDS: CITALOPRAM 20 MG TAB PO SCH (08:59)
[2018-01-23] MEDS: CYCLOBENZAPRINE HCL 5 MG TAB PO PRN ×2 (09:08→18:00)
[2018-01-23] MEDS: INSULIN GLARGINE SOLOSTAR 100 UNITS/ML 3 ML PEN SC SCH ×2 (09:12→21:14)
--- NOTE | 2018-01-23 11:29 | Hospitalist Progress Note ---
Hospitalist Progress Note Date of Service Jan 23, 2018. Subjective Pt evaluation today including: conversation w/ patient, physical exam, chart review, lab review, review of inpatient medication list Patient seen and evaluated. No acute events overnight. Cr continues to slowly trend down. UO remains acceptable. Currently down to only +3.9 L balance. Sitting up in bedside chair on saturating well on RA. Intermittently drops Has a non-productive cough. Patient objectively looks more comfortable but reporting about the same level of pain. A little irritable because of this but remains pleasant. Constitutional: No fever, No chills Respiratory: + cough, No sputum, No shortness of breath Cardiovascular: No chest pain Abdomen: No pain, No nausea, No vomiting, No diarrhea Musculoskeletal: + problem reported (ongoing back pain with radiculopathy) Male : No dysuria Heme: No abnormal bleeding/bruising Medications Current Inpatient Medications Medications (Trade) Dose Ordered Sig/Dianne Route Start Time Stop Time Status Last Admin Dose Admin Acetaminophen (Tylenol Tab) 650 mg Q4H PRN PO 01/14/18 10:30 02/13/18 10:29 01/22/18 11:16 650 MG Polyethylene (Miralax Powder Packet) 17 gm DAILY PRN PO 01/14/18 11:45 02/13/18 11:44 01/22/18 11:15 17 GM Ondansetron HCl (Zofran Inj) 4 mg Q6H PRN IV 01/14/18 10:30 02/13/18 10:29 01/19/18 12:46 4 MG Citalopram Hydrobromide (celeXA TAB) 20 mg QAM PO 01/15/18 09:00 02/14/18 08:59 Future hold 01/23/18 08:59 20 MG Digoxin (Lanoxin Tab) 0.125 mg QAM PO 01/15/18 09:00 02/14/18 08:59 Future hold 01/23/18 08:58 0.125 MG Levothyroxine Sodium (Synthroid Tab) 100 mcg DAILYBB PO 01/15/18 06:00 02/14/18 05:59 01/23/18 05:12 100 MCG Metoprolol Tartrate (Lopressor Tab) 25 mg BID PO 01/14/18 21:00 02/13/18 20:59 01/23/18 08:59 25 MG Miscellaneous Information (Order Awaiting Action) 1 ea QS N/A 01/14/18 16:00 02/13/18 15:59 Ranitidine HCl (zANTac TAB) 300 mg HS PO 01/14/18 21:00 02/13/18 20:59 01/22/18 21:25 300 MG Glucose (Glucose 40% Gel) 15-30 GRAMS 15 GRAMS... UD PRN PO 01/14/18 11:45 02/13/18 11:44 Glucose (Glucose Chew Tab) 4-8 Tablets 4 Tabl... UD PRN PO 01/14/18 11:45 02/13/18 11:44 Dextrose (Dextrose 50% 50ML Syringe) 25-50ML OF 50% DW IV FOR... UD PRN IV 01/14/18 11:45 02/13/18 11:44 Glucagon (Glucagon Inj) 1 mg UD PRN SQ 01/14/18 11:45 02/13/18 11:44 Miscellaneous (Iv Fluids Completed) 1 ea PRN PRN N/A 01/14/18 16:15 01/14/19 16:14 Insulin Glargine (Lantus Solostar Pen) 15 units BID SC 01/16/18 21:00 02/13/18 20:59 Future hold 01/23/18 09:12 15 UNITS Hydralazine HCl (HydrALAZINE INJ) 20 mg Q6 PRN IV. 01/17/18 08:45 02/13/18 11:14 Promethazine HCl 12.5 mg/Sodium Chloride 50.5 ml @ 202 mls/hr Q6H PRN IV 01/17/18 16:45 02/16/18 16:44 Ondansetron HCl (Zofran Inj) 4 mg Q6H PRN IV 01/17/18 16:45 02/16/18 16:44 Metoclopramide HCl (Reglan Inj) 10 mg Q6H PRN IV 01/17/18 16:45 02/16/18 16:44 Lorazepam (Ativan Tab) 0.5 mg Q8H PRN PO 01/17/18 16:45 02/16/18 16:44 Lorazepam 0.5 mg/ Syringe 0.25 ml @ 1 mls/min Q8H PRN IV 01/17/18 16:45 02/16/18 16:44 Pneumococcal Polysaccharide Vaccine 1 ea PRN PRN N/A 01/17/18 16:45 02/16/18 16:44 Influenza Virus Vacc Triv Types A&B 1 ea PRN PRN N/A 01/17/18 16:45 02/16/18 16:44 Bisacodyl (Dulcolax Supp) 10 mg DAILY PRN [place] 01/17/18 16:45 02/16/18 16:44 01/22/18 15:47 10 MG Magnesium Hydroxide (Milk Of Magnesia Susp) 30 ml DAILY PRN PO 01/17/18 16:45 02/16/18 16:44 Acetaminophen (Tylenol Tab) 1,000 mg Q8H PRN PO 01/17/18 16:45 02/16/18 16:44 01/17/18 23:08 1,000 MG Acetaminophen 100 ml @ 400 mls/hr Q8H PRN IV 01/17/18 16:45 02/16/18 16:44 01/21/18 08:14 400 MLS/HR Naloxone HCl (Narcan Inj) 0.1 mg Q5M PRN IV 01/17/18 16:45 02/16/18 16:44 Senna/Docusate Sodium (Senokot S Tab) 2 tab HS PO 01/17/18 21:00 02/16/18 20:59 01/22/18 21:25 2 TAB Hydroxyzine HCl (Vistaril Tab) 25 mg Q8H PRN PO 01/17/18 16:45 02/16/18 16:44 Al Hydroxide/Mg Hydroxide (Maalox Susp) 30 ml Q6H PRN PO 01/17/18 16:45 02/16/18 16:44 Famotidine (Pepcid Tab) 20 mg Q12 PRN PO 01/17/18 16:45 02/16/18 16:44 Diphenhydramine HCl (Benadryl Cap) 25 mg Q6H PRN PO 01/17/18 16:45 02/16/18 16:44 Oxycodone HCl (Oxycontin Tab) 10 mg Q12H PO 01/18/18 17:00 02/01/18 16:59 01/23/18 05:11 10 MG Oxycodone HCl (Roxicodone Immediate Rel Tab) 5-10mg prn moderate to sev... Q4H PRN PO 01/19/18 11:45 02/02/18 11:44 01/22/18 15:52 5 MG Cyclobenzaprine HCl (Flexeril Tab) 5 mg BID PRN PO 01/20/18 11:45 02/19/18 11:44 01/23/18 09:08 5 MG Insulin Aspart (novoLOG ASPART) SLIDING SCALE G... ACHS SC 01/20/18 17:15 02/19/18 17:14 Albuterol/ Ipratropium (Duoneb) 3 ml QIDR INH 01/21/18 12:00 02/20/18 11:59 01/23/18 07:23 3 ML Albuterol/ Ipratropium (Duoneb) 3 ml Q2H PRN INH 01/21/18 11:00 02/20/18 10:59 Enteral Nutritional Formula (Boost Pudding) 1 cup BID PO 01/21/18 21:00 02/20/18 20:59 01/23/18 08:58 1 CUP Sodium Biphosphate/ Sodium Phosphate (Fleet Enema) 132 ml DAILY PRN [place] 01/22/18 15:45 02/21/18 15:44 01/22/18 17:37 132 ML Objective Vital Signs Date Time Temp Pulse Resp B/P (MAP) Pulse Ox O2 Delivery O2 Flow Rate FiO2 01/23/18 08:58 68 01/23/18 07:54 36.7 69 20 168/81 (110) 96 Nasal Cannula 2.0 01/23/18 07:23 61 16 98 Nasal Cannula 2.0 01/22/18 23:30 Nasal Cannula 2.0 01/22/18 23:17 96 Nasal Cannula 2.0 01/22/18 23:13 37.1 78 16 152/73 (99) 88 Room Air 01/22/18 19:16 65 14 97 Nasal Cannula 2.0 01/22/18 15:19 36.8 69 20 148/74 (98) 96 Nasal Cannula 2.0 01/22/18 15:16 Nasal Cannula 2.0 01/22/18 14:54 77 16 95 Nasal Cannula 2.0 3/31/18 11:22 75 16 95 Nasal Cannula 2.0 Physical Exam General Appearance: WD/WN, no apparent distress Eyes: sclerae normal ENT: hearing grossly normal Neck: supple, no JVD, trachea midline Respiratory/Chest: no respiratory distress, no accessory muscle use, + decreased breath sounds (bases b/l) Cardiovascular: regular rate, rhythm, no gallop, no murmur Abdomen: normal bowel sounds, non tender, soft Extremities: no pedal edema Neurologic/Psychiatric: alert Skin: normal color Laboratory Results Last 24 Hours Test 01/22/18 12:06 01/22/18 16:59 01/22/18 20:27 01/23/18 05:10 Bedside Glucose 133 mg/dl 132 mg/dl 123 mg/dl Sodium Level 141 mmol/L Potassium Level 4.4 mmol/L Chloride Level 112 mmol/L Carbon Dioxide Level 21 mmol/L Anion Gap 8.0 mmol/L Blood Urea Nitrogen 80 mg/dl Creatinine 4.29 mg/dl Est Creatinine Clear Calc Drug Dose 16.7 ml/min Estimated GFR () 14.4 Estimated GFR (Non- 12.4 BUN/Creatinine Ratio 18.7 Random Glucose 96 mg/dl Calcium Level 8.1 mg/dl Magnesium Level 2.1 mg/dl Assessment and Plan 77 yo male with acute pulmonary edema due to noncompliance with Lasix Acute on Chronic Diastolic CHF 2/2 Non-Compliance: STABLE - Continue to monitor fluid status - appears euvolemic at this time; has a non- productive cough and utilize Duonebs - CXR the other day with infiltrative change which may be atelectasis but F/U CXR today and will reassess Accelerated HTN: IMPROVING - Digoxin resumed and Lisinopril remains on hold - U/S obtained with no subclavian stenosis - obtained due to discrepancies in BP readings in arms - Lopressor 25 mg BID TANNER on CKD Stage III: SLOWLY IMPROVING - Cr slowing improving and currently at 4.29 - responding to Lasix as well as UO improving - Nephrology following - holding on [employer] at this time given improvement in UO - responding well to intermittent Lasix Recent UTI (as outpatient) - Citrobacter: RESOLVED - Abx Tx Completed T2DM: BSGs Acceptable - Will continue Lantus at reduced dose of 15 units SC BID - BSGs remain acceptable with this dosing Hypothyroidism: STABLE - Synthroid 100 mcg daily Lumbar Spinal Stenosis S/P Decompression: - Tylenol and Roxicodone; Flexeril PRN - Will recommend good bowel regimen - Senna and can use intermittent suppositories - Dr. Brown following - appreciate recommendations and surgical intervention DVT Prophylaxis: Heparin on hold / surgery Code Status: FULL RESUSCITATION Disposition: - PT/OT evaluations - they have been on hold due to significant pain; likely resumed tomorrow - Continue to monitor kidney function and will like to see this continue to improve prior to D/C Continued [facility] stay due to: multiple IV medications needed Discharge planning: uncertain
[2018-01-23] MEDS ORDERED: FUROSEMIDE 80 MG TAB PO ONE (11:30)
--- NOTE | 2018-01-23 11:34 | Nephrology Progress Note ---
Nephrology Progress Note Date of Service Jan 23, 2018. Chief Complaint TANNER Subjective No acute events overnight. SaO2 slightly low and improved with 2L NC. The patient is comfortable. Mr. Gonsalez denies dyspnea. He is voiding without difficulty. Rodarte removed yesterday. No fevers or chills. Out of bed to chair. Patient hopes to be discharged to rehab in the next day or two. Review of Systems A complete review of systems was performed. Pertinent positives are noted above. All other systems are negative. Vital Signs Last 8 Hrs Date Time Temp Pulse Resp B/P (MAP) Pulse Ox O2 Delivery O2 Flow Rate FiO2 01/23/18 11:21 70 16 91 Room Air 01/23/18 08:58 68 01/23/18 07:54 36.7 69 20 168/81 (110) 96 Nasal Cannula 2.0 01/23/18 07:23 61 16 98 Nasal Cannula 2.0 Last Recorded Weight Weight (Kilograms): 99.200 Physical Exam General Appearance: WD/WN, no apparent distress Head: normocephalic, atraumatic Eyes: normal inspection, sclerae normal ENT: normal ENT inspection, pharynx normal Neck: supple, no JVD Respiratory/Chest: lungs clear, no respiratory distress, no accessory muscle use, + rales (few scattered) Cardiovascular: regular rate, rhythm, no gallop Back: no CVA tenderness Abdomen/GI: non tender, soft Extremities/Musculoskelatal: normal inspection, + pedal edema Neurologic/Psych: alert, normal mood/affect Social History Alcohol Use: none Marital Status: Housing Status: lives with family 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) Laboratory Results Past 24 Hours 01/23/18 05:10 Test 01/22/18 12:06 01/22/18 16:59 01/22/18 20:27 01/23/18 05:10 Bedside Glucose 133 mg/dl (70-99) 132 mg/dl (70-99) 123 mg/dl (70-99) Anion Gap 8.0 mmol/L (3-11) Est Creatinine Clear Calc Drug Dose 16.7 ml/min Estimated GFR () 14.4 Estimated GFR (Non- 12.4 BUN/Creatinine Ratio 18.7 (10-20) Calcium Level 8.1 mg/dl (8.5-10.1) Magnesium Level 2.1 mg/dl (1.8-2.4) Allergies Coded Allergies: No Known Allergies (Unverified , 01/17/18) Medications Current Inpatient Medications Medications (Trade) Dose Ordered Sig/Dianne Route Start Time Stop Time Status Last Admin Dose Admin Acetaminophen (Tylenol Tab) 650 mg Q4H PRN PO 01/14/18 10:30 02/13/18 10:29 01/22/18 11:16 650 MG Polyethylene (Miralax Powder Packet) 17 gm DAILY PRN PO 01/14/18 11:45 02/13/18 11:44 01/22/18 11:15 17 GM Ondansetron HCl (Zofran Inj) 4 mg Q6H PRN IV 01/14/18 10:30 02/13/18 10:29 01/19/18 12:46 4 MG Citalopram Hydrobromide (celeXA TAB) 20 mg QAM PO 01/15/18 09:00 02/14/18 08:59 Future hold 01/23/18 08:59 20 MG Digoxin (Lanoxin Tab) 0.125 mg QAM PO 01/15/18 09:00 02/14/18 08:59 Future hold 01/23/18 08:58 0.125 MG Levothyroxine Sodium (Synthroid Tab) 100 mcg DAILYBB PO 01/15/18 06:00 02/14/18 05:59 01/23/18 05:12 100 MCG Metoprolol Tartrate (Lopressor Tab) 25 mg BID PO 01/14/18 21:00 02/13/18 20:59 01/23/18 08:59 25 MG Miscellaneous Information (Order Awaiting Action) 1 ea QS N/A 01/14/18 16:00 02/13/18 15:59 Ranitidine HCl (zANTac TAB) 300 mg HS PO 01/14/18 21:00 02/13/18 20:59 01/22/18 21:25 300 MG Glucose (Glucose 40% Gel) 15-30 GRAMS 15 GRAMS... UD PRN PO 01/14/18 11:45 02/13/18 11:44 Glucose (Glucose Chew Tab) 4-8 Tablets 4 Tabl... UD PRN PO 01/14/18 11:45 02/13/18 11:44 Dextrose (Dextrose 50% 50ML Syringe) 25-50ML OF 50% DW IV FOR... UD PRN IV 01/14/18 11:45 02/13/18 11:44 Glucagon (Glucagon Inj) 1 mg UD PRN SQ 01/14/18 11:45 02/13/18 11:44 Miscellaneous (Iv Fluids Completed) 1 ea PRN PRN N/A 01/14/18 16:15 01/14/19 16:14 Insulin Glargine (Lantus Solostar Pen) 15 units BID SC 01/16/18 21:00 02/13/18 20:59 Future hold 01/23/18 09:12 15 UNITS Hydralazine HCl (HydrALAZINE INJ) 20 mg Q6 PRN IV. 01/17/18 08:45 02/13/18 11:14 Promethazine HCl 12.5 mg/Sodium Chloride 50.5 ml @ 202 mls/hr Q6H PRN IV 01/17/18 16:45 02/16/18 16:44 Ondansetron HCl (Zofran Inj) 4 mg Q6H PRN IV 01/17/18 16:45 02/16/18 16:44 Metoclopramide HCl (Reglan Inj) 10 mg Q6H PRN IV 01/17/18 16:45 02/16/18 16:44 Lorazepam (Ativan Tab) 0.5 mg Q8H PRN PO 01/17/18 16:45 02/16/18 16:44 Lorazepam 0.5 mg/ Syringe 0.25 ml @ 1 mls/min Q8H PRN IV 01/17/18 16:45 02/16/18 16:44 Pneumococcal Polysaccharide Vaccine 1 ea PRN PRN N/A 01/17/18 16:45 02/16/18 16:44 Influenza Virus Vacc Triv Types A&B 1 ea PRN PRN N/A 01/17/18 16:45 02/16/18 16:44 Bisacodyl (Dulcolax Supp) 10 mg DAILY PRN [place] 01/17/18 16:45 02/16/18 16:44 01/22/18 15:47 10 MG Magnesium Hydroxide (Milk Of Magnesia Susp) 30 ml DAILY PRN PO 01/17/18 16:45 02/16/18 16:44 Acetaminophen (Tylenol Tab) 1,000 mg Q8H PRN PO 01/17/18 16:45 02/16/18 16:44 01/17/18 23:08 1,000 MG Acetaminophen 100 ml @ 400 mls/hr Q8H PRN IV 01/17/18 16:45 02/16/18 16:44 01/21/18 08:14 400 MLS/HR Naloxone HCl (Narcan Inj) 0.1 mg Q5M PRN IV 01/17/18 16:45 02/16/18 16:44 Senna/Docusate Sodium (Senokot S Tab) 2 tab HS PO 01/17/18 21:00 02/16/18 20:59 01/22/18 21:25 2 TAB Hydroxyzine HCl (Vistaril Tab) 25 mg Q8H PRN PO 01/17/18 16:45 02/16/18 16:44 Al Hydroxide/Mg Hydroxide (Maalox Susp) 30 ml Q6H PRN PO 01/17/18 16:45 02/16/18 16:44 Famotidine (Pepcid Tab) 20 mg Q12 PRN PO 01/17/18 16:45 02/16/18 16:44 Diphenhydramine HCl (Benadryl Cap) 25 mg Q6H PRN PO 01/17/18 16:45 02/16/18 16:44 Oxycodone HCl (Oxycontin Tab) 10 mg Q12H PO 01/18/18 17:00 02/01/18 16:59 01/23/18 05:11 10 MG Oxycodone HCl (Roxicodone Immediate Rel Tab) 5-10mg prn moderate to sev... Q4H PRN PO 01/19/18 11:45 02/02/18 11:44 01/22/18 15:52 5 MG Cyclobenzaprine HCl (Flexeril Tab) 5 mg BID PRN PO 01/20/18 11:45 02/19/18 11:44 01/23/18 09:08 5 MG Insulin Aspart (novoLOG ASPART) SLIDING SCALE G... ACHS SC 01/20/18 17:15 02/19/18 17:14 Albuterol/ Ipratropium (Duoneb) 3 ml QIDR INH 01/21/18 12:00 02/20/18 11:59 01/23/18 11:21 3 ML Albuterol/ Ipratropium (Duoneb) 3 ml Q2H PRN INH 01/21/18 11:00 02/20/18 10:59 Enteral Nutritional Formula (Boost Pudding) 1 cup BID PO 01/21/18 21:00 02/20/18 20:59 01/23/18 08:58 1 CUP Sodium Biphosphate/ Sodium Phosphate (Fleet Enema) 132 ml DAILY PRN [place] 01/22/18 15:45 02/21/18 15:44 01/22/18 17:37 132 ML Impression (1) TANNER (acute kidney injury) (2) ATN (acute tubular necrosis) (3) Acute on chronic diastolic (congestive) heart failure (4) chf exac, and worsening spinal stenosis (5) Lumbar stenosis with neurogenic claudication Mr. Gonsalez is a 77-year-old male with chronic kidney disease III ( baseline creatinine around 1.7). He is POD#6 s/p laminectomy with lumbar fusion. Post operative course has been complicated by TANNER consistent with ATN. ATN attributed to hemodynamic changes and NSAID use. He was oliguric but urine output has improved. Electrolyte currently remain acceptable. Creatinine improving. Urinalysis positive for hematuria, proteinuria and pyuria. Renal ultrasound unremarkable. Recommendations -- Evidence of renal recovery noted -- Volume status improving, continue furosemide to encourage slightly negative fluid balance -- Document I/O's -- Medications appropriate for renal function: continue to avoid NSAIDS and suggest avoiding muscle relaxants -- Will provided additional 80 mg of oral furosemide today (good response to 120 mg IV yesterday), goal to encourage slightly negative fluid balance, UOP appears to be improving with diuresis
--- NOTE | 2018-01-23 13:14 | DIAGNOSTIC IMAGING REPORT ---
SINGLE VIEW CHEST CLINICAL HISTORY: Hypoxia. FINDINGS: 2 AP, portable, upright chest radiographs are compared to study dated 01/20/2018. The examination is degraded by portable technique and patient rotation. The heart is enlarged and there is atherosclerotic calcification of the thoracic aorta. Mild pulmonary basilar congestion persists. There are layering pleural effusions with bibasilar consolidation. These have increased in size from previous. No pneumothorax is seen. The skeletal structures are osteopenic. The bony thorax is grossly intact. Fusion hardware is seen in the upper lumbar spine. Cholecystectomy clips are noted. IMPRESSION: 1. Cardiomegaly with evidence of mild congestive failure. 2. There are layering pleural effusions with bibasilar consolidation. This likely represents atelectasis. Correlate clinically for evidence of superimposed pneumonia. Pleural effusions have noticeably increased in size from 01/20/2018. Electronically signed by: Nitin Crowley M.D. 01/23/2018 1:12 PM Dictated Date/Time: 01/23/2018 1:11 PM
[2018-01-23 17:39] LABS: CALCIUM 8.2 mg/dl (8.5-10.1); CREATININE 4.22 mg/dl (0.60-1.40); POTASSIUM 4.5 mmol/L (3.5-5.1)
[2018-01-23] MEDS: ACETAMINOPHEN 325 MG TAB PO PRN (18:00)
[2018-01-23] MEDS: DOCUSATE SODIUM/SENNA 50/8.6MG TAB PO SCH (21:00)
[2018-01-23] MEDS: RANITIDINE HCL 150 MG TAB PO SCH (21:11)
[2018-01-24] VITALS (12 sets, daily range): BP systolic 121–172; BP diastolic 64–78; PULSE 72–91; TEMP 36.8–37.1; O2SAT 87–100
[2018-01-24] MEDS: LEVOTHYROXINE 100 MCG TAB PO SCH (06:00)
[2018-01-24] MEDS: ACETAMINOPHEN 325 MG TAB PO PRN ×2 (06:11→13:22)
[2018-01-24 06:32] LABS: CALCIUM 8.3 mg/dl (8.5-10.1); CREATININE 3.97 mg/dl (0.60-1.40); POTASSIUM 4.3 mmol/L (3.5-5.1)
[2018-01-24 06:52] LABS: HEMATOCRIT 30.6 % (42-52); MEAN CELL VOLUME 85.5 fL (80-100); MEAN CORPUSCULAR HEMOGLOBIN 27.9 pg (25-34); MEAN CORPUSCULAR HGB CONC 32.7 g/dl (32-36); PLATELET COUNT 178 K/uL (130-400); RED CELL DISTRIBUTION WIDTH CV 15.4 % (11.5-14.5); RED CELL DISTRIBUTION WIDTH SD 48.3 fL (36.4-46.3); WHITE BLOOD COUNT 9.08 K/uL (4.8-10.8)
[2018-01-24] MEDS: ALBUT/IPRATROP 3MG/0.5MG NEB 3 ML VIAL INH SCH ×4 (07:04→19:42)
--- NOTE | 2018-01-24 07:36 | Nephrology Progress Note ---
Nephrology Progress Note Date of Service Jan 24, 2018. Chief Complaint TANNER Subjective No acute events overnight. Camacho was laying flat in bed this morning. Sleeping comfortably with supplemental O2. No fevers or chills. Denies any dyspnea at rest. No complaints. Reports pain reasonably controlled. It is noted that patient has been incontinent and I/O's are not accurate. Review of Systems A complete review of systems was performed. Pertinent positives are noted above. All other systems are negative. Vital Signs Last 8 Hrs Date Time Temp Pulse Resp B/P (MAP) Pulse Ox O2 Delivery O2 Flow Rate FiO2 01/24/18 07:05 76 16 100 Nasal Cannula 2.0 01/24/18 07:01 36.9 75 16 168/78 (108) 95 Nasal Cannula 2.0 01/24/18 00:15 Nasal Cannula 2.0 Last Recorded Weight Weight (Kilograms): 99.200 Physical Exam General Appearance: WD/WN, no apparent distress Head: normocephalic, atraumatic Eyes: normal inspection, sclerae normal ENT: normal ENT inspection, pharynx normal Neck: supple, + JVD Respiratory/Chest: no respiratory distress, no accessory muscle use, + decreased breath sounds Cardiovascular: regular rate, rhythm, no gallop Abdomen/GI: non tender, soft Extremities/Musculoskelatal: normal inspection, + pedal edema Neurologic/Psych: alert, normal mood/affect Social History Alcohol Use: none Marital Status: Housing Status: lives with family 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) Laboratory Results Past 24 Hours 01/24/18 05:27 01/23/18 17:04 01/24/18 05:27 Test 01/23/18 08:45 01/23/18 12:28 01/23/18 17:04 01/23/18 17:28 Bedside Glucose 97 mg/dl (70-99) 117 mg/dl (70-99) 83 mg/dl (70-99) Arterial Blood pH 7.37 (7.35-7.45) Arterial Blood Partial Pressure CO2 39 mmHg (35-46) Arterial Blood Partial Pressure O2 64 mm/Hg (80-95) Arterial Blood HCO3 22 mmol/L (19-24) Arterial Blood Oxygen Saturation 88.9 % (90-95) Arterial Blood Base Excess -3.0 mEq/L (-9-1.8) Arterial Blood Gas Delivery ROOM AIR Josiah Test POS (POS) Anion Gap 11.0 mmol/L (3-11) Est Creatinine Clear Calc Drug Dose 17.0 ml/min Estimated GFR () 14.7 Estimated GFR (Non- 12.7 BUN/Creatinine Ratio 19.5 (10-20) Calcium Level 8.2 mg/dl (8.5-10.1) Ammonia 34.0 umol/L (11-32) Vitamin B12 Level 474 pg/mL (211-911) Folate 7.86 ng/mL (>5.38) Thyroid Stimulating Hormone (TSH) 1.560 uIu/ml (0.300-4.500) Test 01/23/18 20:45 01/24/18 05:27 Bedside Glucose 89 mg/dl (70-99) Red Blood Count 3.58 M/uL (4.7-6.1) Mean Corpuscular Volume 85.5 fL (80-100) Mean Corpuscular Hemoglobin 27.9 pg (25-34) Mean Corpuscular Hemoglobin Concent 32.7 g/dl (32-36) RDW Standard Deviation 48.3 fL (36.4-46.3) RDW Coefficient of Variation 15.4 % (11.5-14.5) Mean Platelet Volume 10.0 fL (7.4-10.4) Anion Gap 8.0 mmol/L (3-11) Est Creatinine Clear Calc Drug Dose 18.1 ml/min Estimated GFR () 15.8 Estimated GFR (Non- 13.6 BUN/Creatinine Ratio 21.2 (10-20) Calcium Level 8.3 mg/dl (8.5-10.1) Magnesium Level 2.0 mg/dl (1.8-2.4) Chemistry Specimen Hemolysis Allergies Coded Allergies: No Known Allergies (Unverified , 01/17/18) Medications Current Inpatient Medications Medications (Trade) Dose Ordered Sig/Dianne Route Start Time Stop Time Status Last Admin Dose Admin Acetaminophen (Tylenol Tab) 650 mg Q4H PRN PO 01/14/18 10:30 02/13/18 10:29 01/24/18 06:11 650 MG Ondansetron HCl (Zofran Inj) 4 mg Q6H PRN IV 01/14/18 10:30 02/13/18 10:29 01/19/18 12:46 4 MG Citalopram Hydrobromide (celeXA TAB) 20 mg QAM PO 01/15/18 09:00 02/14/18 08:59 Future hold 01/23/18 08:59 20 MG Digoxin (Lanoxin Tab) 0.125 mg QAM PO 01/15/18 09:00 02/14/18 08:59 Future hold 01/23/18 08:58 0.125 MG Levothyroxine Sodium (Synthroid Tab) 100 mcg DAILYBB PO 01/15/18 06:00 02/14/18 05:59 01/24/18 06:00 100 MCG Metoprolol Tartrate (Lopressor Tab) 25 mg BID PO 01/14/18 21:00 02/13/18 20:59 01/23/18 21:13 25 MG Miscellaneous Information (Order Awaiting Action) 1 ea QS N/A 01/14/18 16:00 02/13/18 15:59 Ranitidine HCl (zANTac TAB) 300 mg HS PO 01/14/18 21:00 02/13/18 20:59 01/23/18 21:11 300 MG Glucose (Glucose 40% Gel) 15-30 GRAMS 15 GRAMS... UD PRN PO 01/14/18 11:45 02/13/18 11:44 Glucose (Glucose Chew Tab) 4-8 Tablets 4 Tabl... UD PRN PO 01/14/18 11:45 02/13/18 11:44 Dextrose (Dextrose 50% 50ML Syringe) 25-50ML OF 50% DW IV FOR... UD PRN IV 01/14/18 11:45 02/13/18 11:44 Glucagon (Glucagon Inj) 1 mg UD PRN SQ 01/14/18 11:45 02/13/18 11:44 Miscellaneous (Iv Fluids Completed) 1 ea PRN PRN N/A 01/14/18 16:15 01/14/19 16:14 Insulin Glargine (Lantus Solostar Pen) 15 units BID SC 01/16/18 21:00 02/13/18 20:59 Future hold 01/23/18 21:14 15 UNITS Hydralazine HCl (HydrALAZINE INJ) 20 mg Q6 PRN IV. 01/17/18 08:45 02/13/18 11:14 Promethazine HCl 12.5 mg/Sodium Chloride 50.5 ml @ 202 mls/hr Q6H PRN IV 01/17/18 16:45 02/16/18 16:44 Future Hold Ondansetron HCl (Zofran Inj) 4 mg Q6H PRN IV 01/17/18 16:45 02/16/18 16:44 Metoclopramide HCl (Reglan Inj) 10 mg Q6H PRN IV 01/17/18 16:45 02/16/18 16:44 Lorazepam (Ativan Tab) 0.5 mg Q8H PRN PO 01/17/18 16:45 02/16/18 16:44 Future Hold Lorazepam 0.5 mg/ Syringe 0.25 ml @ 1 mls/min Q8H PRN IV 01/17/18 16:45 02/16/18 16:44 Future Hold Pneumococcal Polysaccharide Vaccine 1 ea PRN PRN N/A 01/17/18 16:45 02/16/18 16:44 Influenza Virus Vacc Triv Types A&B 1 ea PRN PRN N/A 01/17/18 16:45 02/16/18 16:44 Bisacodyl (Dulcolax Supp) 10 mg DAILY PRN NV 01/17/18 16:45 02/16/18 16:44 01/22/18 15:47 10 MG Magnesium Hydroxide (Milk Of Magnesia Susp) 30 ml DAILY PRN PO 01/17/18 16:45 02/16/18 16:44 Acetaminophen (Tylenol Tab) 1,000 mg Q8H PRN PO 01/17/18 16:45 02/16/18 16:44 01/17/18 23:08 1,000 MG Acetaminophen 100 ml @ 400 mls/hr Q8H PRN IV 01/17/18 16:45 02/16/18 16:44 01/21/18 08:14 400 MLS/HR Naloxone HCl (Narcan Inj) 0.1 mg Q5M PRN IV 01/17/18 16:45 02/16/18 16:44 Senna/Docusate Sodium (Senokot S Tab) 2 tab HS PO 01/17/18 21:00 02/16/18 20:59 01/22/18 21:25 2 TAB Hydroxyzine HCl (Vistaril Tab) 25 mg Q8H PRN PO 01/17/18 16:45 02/16/18 16:44 Al Hydroxide/Mg Hydroxide (Maalox Susp) 30 ml Q6H PRN PO 01/17/18 16:45 02/16/18 16:44 Famotidine (Pepcid Tab) 20 mg Q12 PRN PO 01/17/18 16:45 02/16/18 16:44 Diphenhydramine HCl (Benadryl Cap) 25 mg Q6H PRN PO 01/17/18 16:45 02/16/18 16:44 Future Hold Oxycodone HCl (Oxycontin Tab) 10 mg Q12H PO 01/18/18 17:00 02/01/18 16:59 Future Hold 01/23/18 05:11 10 MG Oxycodone HCl (Roxicodone Immediate Rel Tab) 5-10mg prn moderate to sev... Q4H PRN PO 01/19/18 11:45 02/02/18 11:44 01/22/18 15:52 5 MG Cyclobenzaprine HCl (Flexeril Tab) 5 mg BID PRN PO 01/20/18 11:45 02/19/18 11:44 01/23/18 18:00 5 MG Insulin Aspart (novoLOG ASPART) SLIDING SCALE G... ACHS SC 01/20/18 17:15 02/19/18 17:14 01/23/18 19:21 3 UNITS Albuterol/ Ipratropium (Duoneb) 3 ml QIDR INH 01/21/18 12:00 02/20/18 11:59 01/24/18 07:04 3 ML Albuterol/ Ipratropium (Duoneb) 3 ml Q2H PRN INH 01/21/18 11:00 02/20/18 10:59 Enteral Nutritional Formula (Boost Pudding) 1 cup BID PO 01/21/18 21:00 02/20/18 20:59 01/23/18 21:09 1 CUP Polyethylene (Miralax Powder Packet) 17 gm DAILY PO 01/24/18 09:00 02/13/18 11:44 Furosemide (Lasix Tab) 80 mg QAM PO 01/24/18 09:00 02/23/18 08:59 UNV Impression (1) TANNER (acute kidney injury) (2) ATN (acute tubular necrosis) (3) Acute on chronic diastolic (congestive) heart failure (4) chf exac, and worsening spinal stenosis (5) Lumbar stenosis with neurogenic claudication Mr. Gonsalez is a 77-year-old male with chronic kidney disease III ( baseline creatinine around 1.7). He is POD#7 s/p laminectomy with lumbar fusion. Post operative course was complicated by TANNER consistent with ATN. ATN attributed to hemodynamic changes and NSAID use. He was oliguric but urine output has improved. I/O's not accurate due to incontinence (negative ~260 ml yesterday). Electrolyte currently remain acceptable. Creatinine improving. Urinalysis positive for hematuria, proteinuria and pyuria. Renal ultrasound unremarkable. Recommendations -- Continue furosemide 80 mg QAM -- Additional dose of furosemide in the afternoon to encourage negative fluid balance, goal ~500-1000 ml/d -- Document I/O's and daily morning weight -- Medications appropriate for renal function: continue to avoid NSAIDS and suggest avoiding muscle relaxants -- Check orthostatic vitals -- Medications appropriate for renal function
[2018-01-24] MEDS: DIGOXIN 0.125 MG TAB PO SCH (08:12)
[2018-01-24] MEDS: CITALOPRAM 20 MG TAB PO SCH (08:12)
[2018-01-24] MEDS: METOPROLOL TARTRATE 25 MG TAB PO SCH ×2 (08:13→20:42)
[2018-01-24] MEDS: CYCLOBENZAPRINE HCL 5 MG TAB PO PRN (08:13)
[2018-01-24] MEDS: POLYETHYLENE (MIRALAX) 17 GM PACK PO SCH (08:14)
[2018-01-24] MEDS: BOOST VANILLA PUDDING CUP PO SCH ×2 (08:29→20:40)
[2018-01-24] MEDS: INSULIN ASPART 100 UNITS/ML 3 ML PEN SC SCH ×4 (08:57→20:42)
[2018-01-24] MEDS: INSULIN GLARGINE SOLOSTAR 100 UNITS/ML 3 ML PEN SC SCH (09:07)
[2018-01-24] MEDS: FUROSEMIDE 80 MG TAB PO SCH (09:13)
[2018-01-24] MEDS ORDERED: LIDODERM (LIDOCAINE) PATCH 5% TD ONE (11:30)
--- NOTE | 2018-01-24 12:07 | Hospitalist Progress Note ---
Hospitalist Progress Note Date of Service Jan 24, 2018. Subjective Pt evaluation today including: conversation w/ patient, conversation w/ family , physical exam, chart review, lab review, review of inpatient medication list Patient seen and evaluated. Continues with back pain which is isolated to incision site without radiculopathy. Patient looks more comfortable today however. On palpation of his back it appears that he has some muscle tightness on the R lower back and some tenderness to palpation. Will try to utilize heating pad to that area. Will add lidocaine patch. Cr continues to trend down with good UO with Lasix. Patient continues to have urinary freq. likely from this and UA was neg. Patient is having some frustration with freq. due to incontinence. Constitutional: No fever, No chills Respiratory: + cough, No sputum, No shortness of breath Cardiovascular: No chest pain Abdomen: No pain, No nausea, No vomiting, No diarrhea, No constipation Musculoskeletal: + problem reported (incisional back pain and pain to palpation of R lower back muscles), No swelling, No calf pain Heme: No abnormal bleeding/bruising Medications Current Inpatient Medications Medications (Trade) Dose Ordered Sig/Dianne Route Start Time Stop Time Status Last Admin Dose Admin Acetaminophen (Tylenol Tab) 650 mg Q4H PRN PO 01/14/18 10:30 02/13/18 10:29 01/24/18 13:22 650 MG Ondansetron HCl (Zofran Inj) 4 mg Q6H PRN IV 01/14/18 10:30 02/13/18 10:29 01/19/18 12:46 4 MG Citalopram Hydrobromide (celeXA TAB) 20 mg QAM PO 01/15/18 09:00 02/14/18 08:59 Future hold 01/24/18 08:12 20 MG Digoxin (Lanoxin Tab) 0.125 mg QAM PO 01/15/18 09:00 02/14/18 08:59 Future hold 01/24/18 08:12 0.125 MG Levothyroxine Sodium (Synthroid Tab) 100 mcg DAILYBB PO 01/15/18 06:00 02/14/18 05:59 01/24/18 06:00 100 MCG Metoprolol Tartrate (Lopressor Tab) 25 mg BID PO 01/14/18 21:00 02/13/18 20:59 01/24/18 08:13 25 MG Miscellaneous Information (Order Awaiting Action) 1 ea QS N/A 01/14/18 16:00 02/13/18 15:59 Ranitidine HCl (zANTac TAB) 300 mg HS PO 01/14/18 21:00 02/13/18 20:59 01/23/18 21:11 300 MG Glucose (Glucose 40% Gel) 15-30 GRAMS 15 GRAMS... UD PRN PO 01/14/18 11:45 02/13/18 11:44 Glucose (Glucose Chew Tab) 4-8 Tablets 4 Tabl... UD PRN PO 01/14/18 11:45 02/13/18 11:44 Dextrose (Dextrose 50% 50ML Syringe) 25-50ML OF 50% DW IV FOR... UD PRN IV 01/14/18 11:45 02/13/18 11:44 Glucagon (Glucagon Inj) 1 mg UD PRN SQ 01/14/18 11:45 02/13/18 11:44 Miscellaneous (Iv Fluids Completed) 1 ea PRN PRN N/A 01/14/18 16:15 01/14/19 16:14 Insulin Glargine (Lantus Solostar Pen) 15 units BID SC 01/16/18 21:00 02/13/18 20:59 Future hold 01/24/18 09:07 15 UNITS Hydralazine HCl (HydrALAZINE INJ) 20 mg Q6 PRN IV. 01/17/18 08:45 02/13/18 11:14 Promethazine HCl 12.5 mg/Sodium Chloride 50.5 ml @ 202 mls/hr Q6H PRN IV 01/17/18 16:45 02/16/18 16:44 Future Hold Ondansetron HCl (Zofran Inj) 4 mg Q6H PRN IV 01/17/18 16:45 02/16/18 16:44 Metoclopramide HCl (Reglan Inj) 10 mg Q6H PRN IV 01/17/18 16:45 02/16/18 16:44 Lorazepam (Ativan Tab) 0.5 mg Q8H PRN PO 01/17/18 16:45 02/16/18 16:44 Future Hold Lorazepam 0.5 mg/ Syringe 0.25 ml @ 1 mls/min Q8H PRN IV 01/17/18 16:45 02/16/18 16:44 Future Hold Pneumococcal Polysaccharide Vaccine 1 ea PRN PRN N/A 01/17/18 16:45 02/16/18 16:44 Influenza Virus Vacc Triv Types A&B 1 ea PRN PRN N/A 01/17/18 16:45 02/16/18 16:44 Bisacodyl (Dulcolax Supp) 10 mg DAILY PRN VT 01/17/18 16:45 02/16/18 16:44 01/22/18 15:47 10 MG Magnesium Hydroxide (Milk Of Magnesia Susp) 30 ml DAILY PRN PO 01/17/18 16:45 02/16/18 16:44 Acetaminophen (Tylenol Tab) 1,000 mg Q8H PRN PO 01/17/18 16:45 02/16/18 16:44 01/17/18 23:08 1,000 MG Acetaminophen 100 ml @ 400 mls/hr Q8H PRN IV 01/17/18 16:45 02/16/18 16:44 01/21/18 08:14 400 MLS/HR Naloxone HCl (Narcan Inj) 0.1 mg Q5M PRN IV 01/17/18 16:45 02/16/18 16:44 Senna/Docusate Sodium (Senokot S Tab) 2 tab HS PO 01/17/18 21:00 02/16/18 20:59 01/22/18 21:25 2 TAB Hydroxyzine HCl (Vistaril Tab) 25 mg Q8H PRN PO 01/17/18 16:45 02/16/18 16:44 Al Hydroxide/Mg Hydroxide (Maalox Susp) 30 ml Q6H PRN PO 01/17/18 16:45 02/16/18 16:44 Famotidine (Pepcid Tab) 20 mg Q12 PRN PO 01/17/18 16:45 02/16/18 16:44 Diphenhydramine HCl (Benadryl Cap) 25 mg Q6H PRN PO 01/17/18 16:45 02/16/18 16:44 Future Hold Oxycodone HCl (Oxycontin Tab) 10 mg Q12H PO 01/18/18 17:00 02/01/18 16:59 Future Hold 01/23/18 05:11 10 MG Oxycodone HCl (Roxicodone Immediate Rel Tab) 5-10mg prn moderate to sev... Q4H PRN PO 01/19/18 11:45 02/02/18 11:44 01/22/18 15:52 5 MG Cyclobenzaprine HCl (Flexeril Tab) 5 mg BID PRN PO 01/20/18 11:45 02/19/18 11:44 01/24/18 08:13 5 MG Insulin Aspart (novoLOG ASPART) SLIDING SCALE G... ACHS SC 01/20/18 17:15 02/19/18 17:14 01/23/18 19:21 3 UNITS Albuterol/ Ipratropium (Duoneb) 3 ml QIDR INH 01/21/18 12:00 02/20/18 11:59 01/24/18 15:02 3 ML Albuterol/ Ipratropium (Duoneb) 3 ml Q2H PRN INH 01/21/18 11:00 02/20/18 10:59 Enteral Nutritional Formula (Boost Pudding) 1 cup BID PO 01/21/18 21:00 02/20/18 20:59 01/24/18 08:29 1 CUP Polyethylene (Miralax Powder Packet) 17 gm DAILY PO 01/24/18 09:00 02/13/18 11:44 Furosemide (Lasix Tab) 80 mg QAM PO 01/24/18 09:00 02/23/18 08:59 01/24/18 09:13 80 MG Lidocaine (Lidoderm Patch 5%) 1 patch QAM TD 01/25/18 09:00 02/24/18 08:59 Miscellaneous (Remove Lidoderm Patch) 1 ea DAILY@21 N/A 01/24/18 21:00 02/23/18 20:59 Objective Vital Signs Date Time Temp Pulse Resp B/P (MAP) Pulse Ox O2 Delivery O2 Flow Rate FiO2 01/24/18 11:25 72 14 94 Room Air 01/24/18 09:20 157/76 (103) 01/24/18 08:12 72 01/24/18 08:10 Room Air 01/24/18 07:05 76 16 100 Nasal Cannula 2.0 01/24/18 07:01 36.9 75 16 168/78 (108) 95 Nasal Cannula 2.0 01/24/18 00:15 Nasal Cannula 2.0 01/23/18 23:01 36.9 90 16 155/76 (102) 98 Nasal Cannula 2.0 01/23/18 21:15 87 109/61 (77) 01/23/18 19:30 72 14 92 Room Air 01/23/18 16:30 Room Air 01/23/18 16:00 36.7 76 20 127/68 (87) 90 Room Air 01/23/18 15:33 68 16 91 Room Air Physical Exam General Appearance: WD/WN, no apparent distress Eyes: sclerae normal ENT: hearing grossly normal Neck: supple, no JVD, trachea midline Respiratory/Chest: no respiratory distress, no accessory muscle use, + decreased breath sounds (base b/l) Cardiovascular: regular rate, rhythm, no gallop, no murmur Abdomen: normal bowel sounds, non tender, soft Extremities: no pedal edema, + pertinent finding (tenderness to palpation of R lower back with tightening of the musculature; no tenderness to palpation of L lower back or spasm/tightening of muscle) Neurologic/Psychiatric: alert, oriented x 3 Skin: normal color, warm/dry Laboratory Results Last 24 Hours Test 01/23/18 12:28 01/23/18 17:04 01/23/18 17:28 01/23/18 20:45 Bedside Glucose 117 mg/dl 83 mg/dl 89 mg/dl Arterial Blood pH 7.37 Arterial Blood Partial Pressure CO2 39 mmHg Arterial Blood Partial Pressure O2 64 mm/Hg Arterial Blood HCO3 22 mmol/L Arterial Blood Oxygen Saturation 88.9 % Arterial Blood Base Excess -3.0 mEq/L Arterial Blood Gas Delivery ROOM AIR Josiah Test POS Sodium Level 141 mmol/L Potassium Level 4.5 mmol/L Chloride Level 110 mmol/L Carbon Dioxide Level 20 mmol/L Anion Gap 11.0 mmol/L Blood Urea Nitrogen 82 mg/dl Creatinine 4.22 mg/dl Est Creatinine Clear Calc Drug Dose 17.0 ml/min Estimated GFR () 14.7 Estimated GFR (Non- 12.7 BUN/Creatinine Ratio 19.5 Random Glucose 90 mg/dl Calcium Level 8.2 mg/dl Ammonia 34.0 umol/L Vitamin B12 Level 474 pg/mL Folate 7.86 ng/mL Thyroid Stimulating Hormone (TSH) 1.560 uIu/ml Test 01/24/18 05:27 01/24/18 10:15 White Blood Count 9.08 K/uL Red Blood Count 3.58 M/uL Hemoglobin 10.0 g/dL Hematocrit 30.6 % Mean Corpuscular Volume 85.5 fL Mean Corpuscular Hemoglobin 27.9 pg Mean Corpuscular Hemoglobin Concent 32.7 g/dl RDW Standard Deviation 48.3 fL RDW Coefficient of Variation 15.4 % Platelet Count 178 K/uL Mean Platelet Volume 10.0 fL Sodium Level 141 mmol/L Potassium Level 4.3 mmol/L Chloride Level 109 mmol/L Carbon Dioxide Level 24 mmol/L Anion Gap 8.0 mmol/L Blood Urea Nitrogen 84 mg/dl Creatinine 3.97 mg/dl Est Creatinine Clear Calc Drug Dose 18.1 ml/min Estimated GFR () 15.8 Estimated GFR (Non- 13.6 BUN/Creatinine Ratio 21.2 Random Glucose 75 mg/dl Calcium Level 8.3 mg/dl Magnesium Level 2.0 mg/dl Chemistry Specimen Hemolysis Urine Color YELLOW Urine Appearance CLEAR Urine pH 5.0 Urine Specific [place] 1.011 Urine Protein NEG Urine Glucose (UA) NEG Urine Ketones NEG Urine Occult Blood TRACE Urine Nitrite NEG Urine Bilirubin NEG Urine Urobilinogen NEG Urine Leukocyte Esterase TRACE Urine WBC (Auto) 1-5 /hpf Urine RBC (Auto) 0-4 /hpf Urine Hyaline Casts (Auto) 1-5 /lpf Urine Epithelial Cells (Auto) 5-10 /lpf Urine Bacteria (Auto) NEG Assessment and Plan 77 yo male with acute pulmonary edema due to noncompliance with Lasix Acute on Chronic Diastolic CHF 2/2 Non-Compliance: STABLE - CXR from 01/23 with continued congestion and should improve with continued Lasix ; continues to have a non-productive cough that he reports is chronic Accelerated HTN: IMPROVING - Digoxin resumed and Lisinopril remains on hold due to TANNER - U/S obtained with no subclavian stenosis - obtained due to discrepancies in BP readings in arms - Lopressor 25 mg BID TANNER on CKD Stage III: SLOWLY IMPROVING - Cr slowing improving and currently at 3.97 - responding to Lasix as well as UO stable - Nephrology following - appreciate assistance and continued diuretics Recent UTI (as outpatient) - Citrobacter: RESOLVED - Abx Tx Completed - Having urinary frequency which is likely from the Lasix but did repeat UA and unremarkable T2DM: BSGs Acceptable - Will continue Lantus at reduced dose of 15 units SC BID - BSGs remain acceptable with this dosing Hypothyroidism: STABLE - Synthroid 100 mcg daily Lumbar Spinal Stenosis S/P Decompression: IMPROVING - Tylenol and Roxicodone; Flexeril PRN; Will add Lidocaine patch; Add K-pad for R low back spasm - Will recommend good bowel regimen - Senna and can use intermittent suppositories - Dr. Brown following - appreciate recommendations and surgical intervention DVT Prophylaxis: Heparin on hold 11/26 surgery Code Status: FULL RESUSCITATION Disposition: - PT/OT evaluations - will resume and likely need rehab - Updated son at bedside and daughter over the phone Continued [facility] stay due to: ambulation difficulties Discharge planning: rehab hospital
--- NOTE | 2018-01-24 14:21 | Progress Note ---
Progress Note Date of Service Jan 24, 2018. Progress Note Patient is sitting up in a chair at the bedside. His son is with him in the room. He is alert and oriented introduce me to his son. He does appear comfortable. He demonstrates reasonable strength testing of lower extremities. He has decreased pain to palpation the yung-surgical area of the lumbar spine. Assessment status post multilevel lumbar decompression fusion per plan at this time we will initiate physical therapy and occupational therapy. Hopefully he will progress throughout the next few days for rehab.
[2018-01-24] MEDS ORDERED: NURSING VERBAL MED ORDER ONE ×2 (18:45→21:30)
[2018-01-24] MEDS: BOOST GLUCOSE CONTROL PO SCH (20:40)
[2018-01-24] MEDS: DOCUSATE SODIUM/SENNA 50/8.6MG TAB PO SCH (20:40)
[2018-01-24] MEDS: RANITIDINE HCL 150 MG TAB PO SCH (20:42)
[2018-01-25] VITALS (8 sets, daily range): BP systolic 136–174; BP diastolic 68–87; PULSE 71–92; TEMP 36.8–37.4; O2SAT 92–99
[2018-01-25] MEDS: LEVOTHYROXINE 100 MCG TAB PO SCH (05:42)
[2018-01-25 06:10] LABS: HEMATOCRIT 31.9 % (42-52); HEMOGLOBIN 10.5 g/dL (14.0-18.0); MEAN CELL VOLUME 85.1 fL (80-100); MEAN CORPUSCULAR HGB CONC 32.9 g/dl (32-36); MEAN PLATELET VOLUME 10.2 fL (7.4-10.4); PLATELET COUNT 197 K/uL (130-400); RED CELL DISTRIBUTION WIDTH CV 15.4 % (11.5-14.5); RED CELL DISTRIBUTION WIDTH SD 47.6 fL (36.4-46.3); WHITE BLOOD COUNT 10.06 K/uL (4.8-10.8)
[2018-01-25 06:41] LABS: CALCIUM 8.4 mg/dl (8.5-10.1); CREATININE 3.26 mg/dl (0.60-1.40)
[2018-01-25] MEDS: ALBUT/IPRATROP 3MG/0.5MG NEB 3 ML VIAL INH SCH ×4 (07:13→19:35)
[2018-01-25] MEDS: POLYETHYLENE (MIRALAX) 17 GM PACK PO SCH (09:00)
[2018-01-25] MEDS: BOOST GLUCOSE CONTROL PO SCH (09:23)
[2018-01-25] MEDS: ACETAMINOPHEN 325 MG TAB PO PRN (09:24)
[2018-01-25] MEDS: DIGOXIN 0.125 MG TAB PO SCH (09:25)
[2018-01-25] MEDS: METOPROLOL TARTRATE 25 MG TAB PO SCH ×3 (09:25→20:54)
[2018-01-25] MEDS: FUROSEMIDE 80 MG TAB PO SCH (09:25)
[2018-01-25] MEDS: CITALOPRAM 20 MG TAB PO SCH (09:25)
[2018-01-25] MEDS: LIDODERM (LIDOCAINE) PATCH 5% TD SCH (09:25)
[2018-01-25] MEDS: INSULIN ASPART 100 UNITS/ML 3 ML PEN SC SCH ×4 (09:31→20:59)
[2018-01-25] MEDS: INSULIN GLARGINE SOLOSTAR 100 UNITS/ML 3 ML PEN SC SCH ×2 (09:32→21:01)
--- NOTE | 2018-01-25 09:49 | Nephrology Progress Note ---
Nephrology Progress Note Date of Service Jan 25, 2018. Chief Complaint TANNER Subjective No acute events overnight. Camacho remains weak. He is transitioning to chair and commode with assist and a rolling walker. Pain control reported as appropriate. No fevers or chills. Denies shortness of breath. Review of Systems A complete review of systems was performed. Pertinent positives are noted above. All other systems are negative. Vital Signs Last 8 Hrs Date Time Temp Pulse Resp B/P (MAP) Pulse Ox O2 Delivery O2 Flow Rate FiO2 01/25/18 09:25 78 01/25/18 09:16 83 136/70 (92) 93 Nasal Cannula 2.0 01/25/18 07:30 Nasal Cannula 2.0 01/25/18 07:14 82 16 97 Nasal Cannula 2.0 01/25/18 07:03 36.9 82 20 174/87 (116) 99 Nasal Cannula 2.0 Last Recorded Weight Weight (Kilograms): 99.200 Physical Exam General Appearance: WD/WN, no apparent distress Head: normocephalic, atraumatic Eyes: normal inspection, sclerae normal ENT: normal ENT inspection, pharynx normal Neck: supple, no JVD Respiratory/Chest: lungs clear, no respiratory distress, no accessory muscle use Cardiovascular: regular rate, rhythm, no gallop Abdomen/GI: non tender, soft Extremities/Musculoskelatal: normal inspection, no pedal edema Neurologic/Psych: alert, normal mood/affect Social History Alcohol Use: none Marital Status: Housing Status: lives with family 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) Laboratory Results Past 24 Hours 01/25/18 05:35 01/25/18 05:35 Test 01/24/18 10:15 01/24/18 12:09 01/24/18 17:28 01/24/18 17:51 Urine Color YELLOW Urine Appearance CLEAR (CLEAR) Urine pH 5.0 (4.5-7.5) Urine Specific [place] 1.011 (1.000-1.030) Urine Protein NEG (NEG) Urine Glucose (UA) NEG (NEG) Urine Ketones NEG (NEG) Urine Occult Blood TRACE (NEG) Urine Nitrite NEG (NEG) Urine Bilirubin NEG (NEG) Urine Urobilinogen NEG (NEG) Urine Leukocyte Esterase TRACE (NEG) Urine WBC (Auto) 1-5 /hpf (0-5) Urine RBC (Auto) 0-4 /hpf (0-4) Urine Hyaline Casts (Auto) 1-5 /lpf (0-5) Urine Epithelial Cells (Auto) 5-10 /lpf (0-5) Urine Bacteria (Auto) NEG (NEG) Bedside Glucose 78 mg/dl (70-99) 57 mg/dl (70-99) 64 mg/dl (70-99) Test 01/24/18 18:29 01/24/18 20:13 01/25/18 05:35 01/25/18 07:55 Bedside Glucose 80 mg/dl (70-99) 76 mg/dl (70-99) 92 mg/dl (70-99) Red Blood Count 3.75 M/uL (4.7-6.1) Mean Corpuscular Volume 85.1 fL (80-100) Mean Corpuscular Hemoglobin 28.0 pg (25-34) Mean Corpuscular Hemoglobin Concent 32.9 g/dl (32-36) RDW Standard Deviation 47.6 fL (36.4-46.3) RDW Coefficient of Variation 15.4 % (11.5-14.5) Mean Platelet Volume 10.2 fL (7.4-10.4) Anion Gap 7.0 mmol/L (3-11) Est Creatinine Clear Calc Drug Dose 22.0 ml/min Estimated GFR () 20.1 Estimated GFR (Non- 17.3 BUN/Creatinine Ratio 22.9 (10-20) Calcium Level 8.4 mg/dl (8.5-10.1) Magnesium Level 1.8 mg/dl (1.8-2.4) Allergies Coded Allergies: No Known Allergies (Unverified , 01/17/18) Medications Current Inpatient Medications Medications (Trade) Dose Ordered Sig/Dianne Route Start Time Stop Time Status Last Admin Dose Admin Acetaminophen (Tylenol Tab) 650 mg Q4H PRN PO 01/14/18 10:30 02/13/18 10:29 01/25/18 09:24 650 MG Ondansetron HCl (Zofran Inj) 4 mg Q6H PRN IV 01/14/18 10:30 02/13/18 10:29 01/19/18 12:46 4 MG Citalopram Hydrobromide (celeXA TAB) 20 mg QAM PO 01/15/18 09:00 02/14/18 08:59 Future hold 01/25/18 09:25 20 MG Digoxin (Lanoxin Tab) 0.125 mg QAM PO 01/15/18 09:00 02/14/18 08:59 Future hold 01/25/18 09:25 0.125 MG Levothyroxine Sodium (Synthroid Tab) 100 mcg DAILYBB PO 01/15/18 06:00 02/14/18 05:59 01/25/18 05:42 100 MCG Metoprolol Tartrate (Lopressor Tab) 25 mg BID PO 01/14/18 21:00 02/13/18 20:59 01/25/18 09:25 25 MG Miscellaneous Information (Order Awaiting Action) 1 ea QS N/A 01/14/18 16:00 02/13/18 15:59 Ranitidine HCl (zANTac TAB) 300 mg HS PO 01/14/18 21:00 02/13/18 20:59 01/24/18 20:42 300 MG Glucose (Glucose 40% Gel) 15-30 GRAMS 15 GRAMS... UD PRN PO 01/14/18 11:45 02/13/18 11:44 01/24/18 17:36 15 GM Glucose (Glucose Chew Tab) 4-8 Tablets 4 Tabl... UD PRN PO 01/14/18 11:45 02/13/18 11:44 Dextrose (Dextrose 50% 50ML Syringe) 25-50ML OF 50% DW IV FOR... UD PRN IV 01/14/18 11:45 02/13/18 11:44 Glucagon (Glucagon Inj) 1 mg UD PRN SQ 01/14/18 11:45 02/13/18 11:44 Miscellaneous (Iv Fluids Completed) 1 ea PRN PRN N/A 01/14/18 16:15 01/14/19 16:14 Hydralazine HCl (HydrALAZINE INJ) 20 mg Q6 PRN IV. 01/17/18 08:45 02/13/18 11:14 Promethazine HCl 12.5 mg/Sodium Chloride 50.5 ml @ 202 mls/hr Q6H PRN IV 01/17/18 16:45 02/16/18 16:44 Future Hold Ondansetron HCl (Zofran Inj) 4 mg Q6H PRN IV 01/17/18 16:45 02/16/18 16:44 Metoclopramide HCl (Reglan Inj) 10 mg Q6H PRN IV 01/17/18 16:45 02/16/18 16:44 Lorazepam (Ativan Tab) 0.5 mg Q8H PRN PO 01/17/18 16:45 02/16/18 16:44 Future Hold Lorazepam 0.5 mg/ Syringe 0.25 ml @ 1 mls/min Q8H PRN IV 01/17/18 16:45 02/16/18 16:44 Future Hold Pneumococcal Polysaccharide Vaccine 1 ea PRN PRN N/A 01/17/18 16:45 02/16/18 16:44 Influenza Virus Vacc Triv Types A&B 1 ea PRN PRN N/A 01/17/18 16:45 02/16/18 16:44 Bisacodyl (Dulcolax Supp) 10 mg DAILY PRN LA 01/17/18 16:45 02/16/18 16:44 01/22/18 15:47 10 MG Magnesium Hydroxide (Milk Of Magnesia Susp) 30 ml DAILY PRN PO 01/17/18 16:45 02/16/18 16:44 Acetaminophen (Tylenol Tab) 1,000 mg Q8H PRN PO 01/17/18 16:45 02/16/18 16:44 01/17/18 23:08 1,000 MG Acetaminophen 100 ml @ 400 mls/hr Q8H PRN IV 01/17/18 16:45 02/16/18 16:44 01/21/18 08:14 400 MLS/HR Naloxone HCl (Narcan Inj) 0.1 mg Q5M PRN IV 01/17/18 16:45 02/16/18 16:44 Senna/Docusate Sodium (Senokot S Tab) 2 tab HS PO 01/17/18 21:00 02/16/18 20:59 01/22/18 21:25 2 TAB Hydroxyzine HCl (Vistaril Tab) 25 mg Q8H PRN PO 01/17/18 16:45 02/16/18 16:44 Al Hydroxide/Mg Hydroxide (Maalox Susp) 30 ml Q6H PRN PO 01/17/18 16:45 02/16/18 16:44 Famotidine (Pepcid Tab) 20 mg Q12 PRN PO 01/17/18 16:45 02/16/18 16:44 Diphenhydramine HCl (Benadryl Cap) 25 mg Q6H PRN PO 01/17/18 16:45 02/16/18 16:44 Future Hold Oxycodone HCl (Oxycontin Tab) 10 mg Q12H PO 01/18/18 17:00 02/01/18 16:59 Future Hold 01/23/18 05:11 10 MG Oxycodone HCl (Roxicodone Immediate Rel Tab) 5-10mg prn moderate to sev... Q4H PRN PO 01/19/18 11:45 02/02/18 11:44 01/22/18 15:52 5 MG Cyclobenzaprine HCl (Flexeril Tab) 5 mg BID PRN PO 01/20/18 11:45 02/19/18 11:44 01/24/18 08:13 5 MG Insulin Aspart (novoLOG ASPART) SLIDING SCALE G... ACHS SC 01/20/18 17:15 02/19/18 17:14 01/25/18 09:31 3 UNITS Albuterol/ Ipratropium (Duoneb) 3 ml QIDR INH 01/21/18 12:00 02/20/18 11:59 01/25/18 07:13 3 ML Albuterol/ Ipratropium (Duoneb) 3 ml Q2H PRN INH 01/21/18 11:00 02/20/18 10:59 Polyethylene (Miralax Powder Packet) 17 gm DAILY PO 01/24/18 09:00 02/13/18 11:44 Furosemide (Lasix Tab) 80 mg QAM PO 01/24/18 09:00 02/23/18 08:59 01/25/18 09:25 80 MG Lidocaine (Lidoderm Patch 5%) 1 patch QAM TD 01/25/18 09:00 02/24/18 08:59 01/25/18 09:25 1 PATCH Miscellaneous (Remove Lidoderm Patch) 1 ea DAILY@21 N/A 01/24/18 21:00 02/23/18 20:59 01/24/18 20:40 1 EA Enteral Nutritional Formula (Boost Glucose Control) 1 can BIDM PO 01/24/18 19:00 02/23/18 18:59 01/25/18 09:23 1 CAN Insulin Glargine (Lantus Solostar Pen) 8 units BID SC 01/25/18 09:00 02/13/18 20:59 01/25/18 09:32 8 UNITS Impression (1) TANNER (acute kidney injury) (2) ATN (acute tubular necrosis) (3) Acute on chronic diastolic (congestive) heart failure (4) chf exac, and worsening spinal stenosis (5) Lumbar stenosis with neurogenic claudication Mr. Gonsalez is a 77-year-old male with chronic kidney disease III ( baseline creatinine around 1.7). He is POD#8 s/p laminectomy with lumbar fusion. Post operative course was complicated by TANNER consistent with ATN. ATN attributed to hemodynamic changes and NSAID use. He was oliguric but urine output has improved. I/O's not accurate due to incontinence. Electrolyte currently remain acceptable. Creatinine improving. Urinalysis positive for hematuria, proteinuria and pyuria. Renal ultrasound unremarkable. Recommendations -- Continue furosemide 80 mg QAM -- Continue to maintain slightly negative fluid balance -- Document I/O's and daily morning weight -- Medications appropriate for renal function: continue to avoid NSAIDS and suggest avoiding muscle relaxants -- Check orthostatic vitals -- Medications appropriate for renal function
--- NOTE | 2018-01-25 12:09 | Hospitalist Progress Note ---
Hospitalist Progress Note Date of Service Jan 25, 2018. (Nidhi Navarrete PA-C) Subjective Pt evaluation today including: conversation w/ patient, conversation w/ family , physical exam, lab review, review of inpatient medication list Patient seen and evaluated. No acute events overnight. Reporting pain is doing a lot better today and has been able to participate in therapy. Muscle contraction in R low back appears to be resolved and no tightness or tenderness to palpation today. Cr. continues to slowly improve and now is at 3.26. Continues to have adequate UO. Constitutional: No fever, No chills Respiratory: + cough, No sputum, No shortness of breath Cardiovascular: No chest pain Abdomen: No pain, No nausea, No vomiting, No diarrhea, No constipation Musculoskeletal: + problem reported (low back pain - improving), No calf pain Heme: No abnormal bleeding/bruising (Nidhi Navarrete PA-C) Medications Current Inpatient Medications Medications (Trade) Dose Ordered Sig/Dianne Route Start Time Stop Time Status Last Admin Dose Admin Acetaminophen (Tylenol Tab) 650 mg Q4H PRN PO 01/14/18 10:30 02/13/18 10:29 01/25/18 09:24 650 MG Ondansetron HCl (Zofran Inj) 4 mg Q6H PRN IV 01/14/18 10:30 02/13/18 10:29 01/19/18 12:46 4 MG Citalopram Hydrobromide (celeXA TAB) 20 mg QAM PO 01/15/18 09:00 02/14/18 08:59 Future hold 01/25/18 09:25 20 MG Digoxin (Lanoxin Tab) 0.125 mg QAM PO 01/15/18 09:00 02/14/18 08:59 Future hold 01/25/18 09:25 0.125 MG Levothyroxine Sodium (Synthroid Tab) 100 mcg DAILYBB PO 01/15/18 06:00 02/14/18 05:59 01/25/18 05:42 100 MCG Metoprolol Tartrate (Lopressor Tab) 25 mg BID PO 01/14/18 21:00 02/13/18 20:59 01/25/18 10:57 25 MG Miscellaneous Information (Order Awaiting Action) 1 ea QS N/A 01/14/18 16:00 02/13/18 15:59 Ranitidine HCl (zANTac TAB) 300 mg HS PO 01/14/18 21:00 02/13/18 20:59 01/24/18 20:42 300 MG Glucose (Glucose 40% Gel) 15-30 GRAMS 15 GRAMS... UD PRN PO 01/14/18 11:45 02/13/18 11:44 01/24/18 17:36 15 GM Glucose (Glucose Chew Tab) 4-8 Tablets 4 Tabl... UD PRN PO 01/14/18 11:45 02/13/18 11:44 Dextrose (Dextrose 50% 50ML Syringe) 25-50ML OF 50% DW IV FOR... UD PRN IV 01/14/18 11:45 02/13/18 11:44 Glucagon (Glucagon Inj) 1 mg UD PRN SQ 01/14/18 11:45 02/13/18 11:44 Miscellaneous (Iv Fluids Completed) 1 ea PRN PRN N/A 01/14/18 16:15 01/14/19 16:14 Hydralazine HCl (HydrALAZINE INJ) 20 mg Q6 PRN IV. 01/17/18 08:45 02/13/18 11:14 Promethazine HCl 12.5 mg/Sodium Chloride 50.5 ml @ 202 mls/hr Q6H PRN IV 01/17/18 16:45 02/16/18 16:44 Future Hold Ondansetron HCl (Zofran Inj) 4 mg Q6H PRN IV 01/17/18 16:45 02/16/18 16:44 Metoclopramide HCl (Reglan Inj) 10 mg Q6H PRN IV 01/17/18 16:45 02/16/18 16:44 Lorazepam (Ativan Tab) 0.5 mg Q8H PRN PO 01/17/18 16:45 02/16/18 16:44 Future Hold Lorazepam 0.5 mg/ Syringe 0.25 ml @ 1 mls/min Q8H PRN IV 01/17/18 16:45 02/16/18 16:44 Future Hold Pneumococcal Polysaccharide Vaccine 1 ea PRN PRN N/A 01/17/18 16:45 02/16/18 16:44 Influenza Virus Vacc Triv Types A&B 1 ea PRN PRN N/A 01/17/18 16:45 02/16/18 16:44 Bisacodyl (Dulcolax Supp) 10 mg DAILY PRN IA 01/17/18 16:45 02/16/18 16:44 01/22/18 15:47 10 MG Magnesium Hydroxide (Milk Of Magnesia Susp) 30 ml DAILY PRN PO 01/17/18 16:45 02/16/18 16:44 Acetaminophen (Tylenol Tab) 1,000 mg Q8H PRN PO 01/17/18 16:45 02/16/18 16:44 01/17/18 23:08 1,000 MG Acetaminophen 100 ml @ 400 mls/hr Q8H PRN IV 01/17/18 16:45 02/16/18 16:44 01/21/18 08:14 400 MLS/HR Naloxone HCl (Narcan Inj) 0.1 mg Q5M PRN IV 01/17/18 16:45 02/16/18 16:44 Senna/Docusate Sodium (Senokot S Tab) 2 tab HS PO 01/17/18 21:00 02/16/18 20:59 01/22/18 21:25 2 TAB Hydroxyzine HCl (Vistaril Tab) 25 mg Q8H PRN PO 01/17/18 16:45 02/16/18 16:44 Al Hydroxide/Mg Hydroxide (Maalox Susp) 30 ml Q6H PRN PO 01/17/18 16:45 02/16/18 16:44 Famotidine (Pepcid Tab) 20 mg Q12 PRN PO 01/17/18 16:45 02/16/18 16:44 Diphenhydramine HCl (Benadryl Cap) 25 mg Q6H PRN PO 01/17/18 16:45 02/16/18 16:44 Future Hold Oxycodone HCl (Oxycontin Tab) 10 mg Q12H PO 01/18/18 17:00 02/01/18 16:59 Future Hold 01/23/18 05:11 10 MG Oxycodone HCl (Roxicodone Immediate Rel Tab) 5-10mg prn moderate to sev... Q4H PRN PO 01/19/18 11:45 02/02/18 11:44 01/22/18 15:52 5 MG Cyclobenzaprine HCl (Flexeril Tab) 5 mg BID PRN PO 01/20/18 11:45 02/19/18 11:44 01/24/18 08:13 5 MG Insulin Aspart (novoLOG ASPART) SLIDING SCALE G... ACHS SC 01/20/18 17:15 02/19/18 17:14 01/25/18 09:31 3 UNITS Albuterol/ Ipratropium (Duoneb) 3 ml QIDR INH 01/21/18 12:00 02/20/18 11:59 01/25/18 11:11 3 ML Albuterol/ Ipratropium (Duoneb) 3 ml Q2H PRN INH 01/21/18 11:00 02/20/18 10:59 Polyethylene (Miralax Powder Packet) 17 gm DAILY PO 01/24/18 09:00 02/13/18 11:44 Furosemide (Lasix Tab) 80 mg QAM PO 01/24/18 09:00 02/23/18 08:59 01/25/18 09:25 80 MG Lidocaine (Lidoderm Patch 5%) 1 patch QAM TD 01/25/18 09:00 02/24/18 08:59 01/25/18 09:25 1 PATCH Miscellaneous (Remove Lidoderm Patch) 1 ea DAILY@21 N/A 01/24/18 21:00 02/23/18 20:59 01/24/18 20:40 1 EA Enteral Nutritional Formula (Boost Glucose Control) 1 can BIDM PO 01/24/18 19:00 02/23/18 18:59 01/25/18 09:23 1 CAN Insulin Glargine (Lantus Solostar Pen) 8 units BID SC 01/25/18 09:00 02/13/18 20:59 01/25/18 09:32 8 UNITS (Nidhi Navarrete, MARGARET) Objective Vital Signs Date Time Temp Pulse Resp B/P (MAP) Pulse Ox O2 Delivery O2 Flow Rate FiO2 01/25/18 11:11 71 16 93 Nasal Cannula 2.0 01/25/18 09:25 78 01/25/18 09:16 83 136/70 (92) 93 Nasal Cannula 2.0 01/25/18 07:30 Nasal Cannula 2.0 01/25/18 07:14 82 16 97 Nasal Cannula 2.0 01/25/18 07:03 36.9 82 20 174/87 (116) 99 Nasal Cannula 2.0 01/24/18 23:30 Nasal Cannula 2.0 01/24/18 23:03 93 Nasal Cannula 2.0 01/24/18 23:03 37.1 91 16 157/72 (100) 87 Room Air 01/24/18 19:43 84 16 96 Room Air 01/24/18 15:30 Room Air 01/24/18 15:30 77 147/66 (93) 01/24/18 15:03 76 16 91 Room Air 01/24/18 14:59 36.8 77 18 172/71 (104) 93 Room Air 01/24/18 13:04 73 121/75 (90) 01/24/18 13:02 73 135/64 (87) 01/24/18 13:00 73 150/71 (97) (Nidhi Navarrete, PA-C) Physical Exam General Appearance: WD/WN, no apparent distress Eyes: sclerae normal ENT: hearing grossly normal Neck: supple, no JVD, trachea midline Respiratory/Chest: lungs clear, no respiratory distress, no accessory muscle use, + decreased breath sounds (bases b/l) Cardiovascular: regular rate, rhythm, no JVD Abdomen: normal bowel sounds, non tender, soft Extremities: + swelling (trace pitting edema b/l lower extremities), + pertinent finding (no muscle tightness of lower back, no tenderness to palpation ) Neurologic/Psychiatric: alert Skin: normal color, warm/dry (Nidhi Navarrete, PA-C) Laboratory Results Last 24 Hours Test 01/24/18 12:09 01/24/18 17:28 01/24/18 17:51 01/24/18 18:29 Bedside Glucose 78 mg/dl 57 mg/dl 64 mg/dl 80 mg/dl Test 01/24/18 20:13 01/25/18 05:35 01/25/18 07:55 Bedside Glucose 76 mg/dl 92 mg/dl White Blood Count 10.06 K/uL Red Blood Count 3.75 M/uL Hemoglobin 10.5 g/dL Hematocrit 31.9 % Mean Corpuscular Volume 85.1 fL Mean Corpuscular Hemoglobin 28.0 pg Mean Corpuscular Hemoglobin Concent 32.9 g/dl RDW Standard Deviation 47.6 fL RDW Coefficient of Variation 15.4 % Platelet Count 197 K/uL Mean Platelet Volume 10.2 fL Sodium Level 141 mmol/L Potassium Level 4.0 mmol/L Chloride Level 110 mmol/L Carbon Dioxide Level 24 mmol/L Anion Gap 7.0 mmol/L Blood Urea Nitrogen 75 mg/dl Creatinine 3.26 mg/dl Est Creatinine Clear Calc Drug Dose 22.0 ml/min Estimated GFR () 20.1 Estimated GFR (Non- 17.3 BUN/Creatinine Ratio 22.9 Random Glucose 88 mg/dl Calcium Level 8.4 mg/dl Magnesium Level 1.8 mg/dl (Nidhi Navarrete PA-C) Assessment and Plan 77 yo male with acute pulmonary edema due to noncompliance with Lasix Acute on Chronic Diastolic CHF 2/2 Non-Compliance: STABLE - Laying flat in bed without orthopnea; does have intermittent desats but reports no SOB; reports chronic cough that is non-productive Accelerated HTN: STABLE - Digoxin resumed and Lisinopril remains on hold due to TANNER; Has intermittent highs - U/S obtained with no subclavian stenosis - obtained due to discrepancies in BP readings in arms - Lopressor 25 mg BID TANNER on CKD Stage III: SLOWLY IMPROVING - Cr continues to trend down and at 3.26 today - responding to Lasix as well as UO stable - Nephrology following - appreciate assistance and continued diuretics Recent UTI (as outpatient) - Citrobacter: RESOLVED - Abx Tx Completed T2DM: - Had hypoglycemia this AM and Lantus was reduced to 8 units SC BID; Will continue to monitor Hypothyroidism: STABLE - Synthroid 100 mcg daily Lumbar Spinal Stenosis S/P Decompression: IMPROVING - Pain is under better control today and began to again participate in PT/OT - plan for rehab at [facility] - Will recommend good bowel regimen - Senna and can use intermittent suppositories - Dr. Brown following - appreciate recommendations and surgical intervention DVT Prophylaxis: Heparin Code Status: FULL RESUSCITATION Disposition: - Updated daughter at bedside today; continued hospitalization to improve Cr - plan for possible [facility] on D/C Continued [facility] stay due to: inadequate oral pain control, ambulation difficulties, other (elevated Cr) Discharge planning: rehab hospital (Landon, Nidhi M., PA-C) PA Physician Supervision Note: I interviewed and examined the patient. Discussed with Ana Navarrete PAC and agree with findings and plan as documented in the note. Any exceptions or clarifications are listed here: None This pt is here with acute on chronic diastolic heart failure diabetes and acute on chronic back pain from spinal stenosis He he is improved with pain control and has less dyspnea 36.9 82 16 174/87 CAr is regular, lungs are clear, LE has sensation intact and no pain with SLR Pt has had resolving acute diastolic heart failure with lasix and back pain controlled with non opiates, will look to rehab placement Documented By: Camacho Conti (Camacho Conti M.D.)
--- NOTE | 2018-01-25 12:38 | Progress Note ---
Progress Note Date of Service Jan 25, 2018. Progress Note Patient's back pain is controlled. He is noting improvement of his leg symptoms and ambulation. On exam he is in the chair at the bedside. He. Is much more comfortable today. He continues to demonstrate nice strength testing lower extremities. Assessment status post lumbar decompression fusion per plan at this time will continue physical therapy as tolerated. Hopefully he will be ready for rehab towards the latter half of this week.
[2018-01-25 12:55] LABS: INR 1.1 (0.9-1.1); PTT PATIENT 27.7 SECONDS (21.0-31.0)
[2018-01-25] MEDS ORDERED: BOOST GLUCOSE CONTROL PO SCH (18:00)
[2018-01-25] MEDS: RANITIDINE HCL 150 MG TAB PO SCH (20:54)
[2018-01-25] MEDS: DOCUSATE SODIUM/SENNA 50/8.6MG TAB PO SCH (20:54)
[2018-01-25] MEDS: HEPARIN SOD 5000 UNIT/0.5 ML CARP SQ SCH (21:02)
[2018-01-26] VITALS (11 sets, daily range): BP systolic 169–187; BP diastolic 62–89; PULSE 74–100; TEMP 36.6–37.1; O2SAT 93–97
--- NOTE | 2018-01-26 00:22 | Progress Note ---
Progress Note Date of Service Jan 26, 2018. Progress Note Was called by nurse at approximately midnight informing me that the patient had a fall and hit his head. Per nurse the fall was unwitnessed but there was a loud thud. Patient appears to be on only Heparin SQ BID for DVT Prophylaxis. No other AC on brief med review. Per nurse no large hematoma or laceration on head. Pt reports pain at the back of his head at the site of impact. No neck pain. CT Head and neck result received at approximately 1:30 pm. Negative for hemorrhage or bleed. Pt was examined by myself at approximately 2pm. He was asleep. He reports doing well. He was oriented to person only , not oriented to time or place. He states he remembers the fall and he didn't lose consciouness. He states he just lost his balance and fell and hit the back of his head. Pt denies any current POLO or head pain. I spoke with the nurse and she did not notice any neurological signs nor has the pt had any complaints since the fall. His head has no signs of trauma, no blood in his hair, fine white hair, cranium is non tender to palpation. There are no signs of trauma to the cervical region. Pupils are equal and reactive to light. Despite being not oriented he is able to carry on a conversation with linear and logical thought processes. A/P: Fall of uncertain etiology, likely mechanical or related to recent medical condition. Pt doing well without sequalae at present. Continued observation. Bed alarm is on. PT and OT are on board. Defer to day team for further workup. Resident Involvement: Resident Care Provided Care Provided: Adult Hospital Medicine
[2018-01-26] MEDS: LEVOTHYROXINE 100 MCG TAB PO SCH (05:36)
[2018-01-26 06:26] LABS: HEMATOCRIT 30.9 % (42-52); HEMOGLOBIN 10.3 g/dL (14.0-18.0); MEAN CELL VOLUME 84.7 fL (80-100); MEAN CORPUSCULAR HEMOGLOBIN 28.2 pg (25-34); MEAN CORPUSCULAR HGB CONC 33.3 g/dl (32-36); MEAN PLATELET VOLUME 10.2 fL (7.4-10.4); PLATELET COUNT 205 K/uL (130-400); RED CELL DISTRIBUTION WIDTH SD 47.1 fL (36.4-46.3); WHITE BLOOD COUNT 8.73 K/uL (4.8-10.8)
--- NOTE | 2018-01-26 06:41 | DIAGNOSTIC IMAGING REPORT ---
CT OF THE HEAD WITHOUT CONTRAST CLINICAL HISTORY: Fall with head trauma. COMPARISON STUDY: No previous studies for comparison. CT DOSE: 729.78 mGycm TECHNIQUE: Helical axial images of the head were obtained without IV contrast. Automated exposure control was utilized for the study. A dose lowering technique was utilized adhering to the principles of ALARA. FINDINGS: No acute intracranial hemorrhage, midline shift or mass effect is present. Ventricular system is normal. Basilar cisterns are patent. There are no extra-axial collections. White matter hypodensity suggests small vessel disease. There is no calvarial fracture. IMPRESSION: 1. No acute intracranial findings. 2. No calvarial fracture. Electronically signed by: Jean-Claude Kellogg M.D. 01/26/2018 6:39 AM Dictated Date/Time: 01/26/2018 6:38 AM
--- NOTE | 2018-01-26 06:43 | DIAGNOSTIC IMAGING REPORT ---
CT OF THE CERVICAL SPINE WITHOUT CONTRAST CLINICAL HISTORY: Fall. COMPARISON STUDY: No previous studies for comparison. TECHNIQUE: Helical axial images of the cervical spine were obtained without IV contrast. Sagittal and coronal reconstructions were viewed. A dose lowering technique was utilized adhering to the principles of ALARA. FINDINGS: Alignment of the cervical spine is anatomic. Craniocervical junction is intact. There is no acute cervical spine fracture. There is moderate to severe multilevel disc space narrowing and osteophytosis as well as moderate multilevel facet arthrosis. There is no prevertebral edema. IMPRESSION: 1. No acute cervical spine fracture or subluxation. 2. Moderate to severe multilevel degenerative disc disease and moderate multilevel facet arthrosis of the cervical spine. Electronically signed by: Jean-Claude Kellogg M.D. 01/26/2018 6:42 AM Dictated Date/Time: 01/26/2018 6:40 AM
[2018-01-26] MEDS: ALBUT/IPRATROP 3MG/0.5MG NEB 3 ML VIAL INH SCH ×4 (06:53→19:24)
[2018-01-26 07:01] LABS: CALCIUM 8.2 mg/dl (8.5-10.1); CREATININE 2.83 mg/dl (0.60-1.40); POTASSIUM 3.7 mmol/L (3.5-5.1)
[2018-01-26] MEDS: POLYETHYLENE (MIRALAX) 17 GM PACK PO SCH (09:00)
[2018-01-26] MEDS: MoRPHine SULFATE 2 MG/ML CARP ONE ×2 (09:22→11:10)
[2018-01-26] MEDS: CITALOPRAM 20 MG TAB PO SCH (09:23)
[2018-01-26] MEDS: FUROSEMIDE 80 MG TAB PO SCH (09:23)
[2018-01-26] MEDS: METOPROLOL TARTRATE 25 MG TAB PO SCH ×2 (09:24→20:47)
[2018-01-26] MEDS: LIDODERM (LIDOCAINE) PATCH 5% TD SCH (09:25)
[2018-01-26] MEDS: DIGOXIN 0.125 MG TAB PO SCH (09:25)
[2018-01-26] MEDS: INSULIN ASPART 100 UNITS/ML 3 ML PEN SC SCH ×4 (09:32→20:50)
[2018-01-26] MEDS: INSULIN GLARGINE SOLOSTAR 100 UNITS/ML 3 ML PEN SC SCH ×2 (09:33→21:03)
[2018-01-26] MEDS: HEPARIN SOD 5000 UNIT/0.5 ML CARP SQ SCH ×2 (09:33→21:02)
--- NOTE | 2018-01-26 11:21 | DIAGNOSTIC IMAGING REPORT ---
RENAL ULTRASOUND CLINICAL HISTORY: Right renal colic. COMPARISON STUDY: Renal ultrasound January 18, 2018. TECHNIQUE: Sonography of the kidneys and the urinary bladder was performed. FINDINGS: Exam is mildly compromised by suboptimal penetration. There has been interval development of mild right collecting system dilatation since exam of January 18, 2018. There is no left hydronephrosis. The right kidney measures 11.2 x 5.4 x 6 cm and the left measures 12.9 x 5.7 x 5.9 cm. There may be left-sided parapelvic cysts. Both ureteral jets were identified. No calculi are identified by sonography. However, ureteral calculi may be occult. IMPRESSION: Interval development of mild right collecting system dilatation since exam of January 18, 2018. No calculi identified although these may be occult by sonography. Electronically signed by: Jean-Claude Kellogg M.D. 01/26/2018 11:20 AM Dictated Date/Time: 01/26/2018 11:18 AM
[2018-01-26] MEDS: LEVOFLOXACIN 500 MG TAB PO SCH (12:00)
--- NOTE | 2018-01-26 12:30 | Nephrology Progress Note ---
Nephrology Progress Note Date of Service Jan 26, 2018. Chief Complaint TANNER Brandon Sauer was seen and evaluated this morning. Noted fall from bed yesterday. Review of Systems A complete review of systems was performed. Pertinent positives are noted above. All other systems are negative. Vital Signs Last 8 Hrs Date Time Temp Pulse Resp B/P (MAP) Pulse Ox O2 Delivery O2 Flow Rate FiO2 01/26/18 11:07 82 16 95 Room Air 01/26/18 09:25 80 01/26/18 08:06 95 Nasal Cannula 01/26/18 07:50 97 Nasal Cannula 2.0 01/26/18 07:30 37.1 82 18 170/62 (98) 95 Nasal Cannula 2.0 170/78 (108) 01/26/18 06:53 74 16 97 Nasal Cannula 2.0 Last Recorded Weight Weight (Kilograms): 95.300 Physical Exam General Appearance: WD/WN, no apparent distress Head: normocephalic, atraumatic Eyes: normal inspection, sclerae normal ENT: normal ENT inspection, pharynx normal Neck: supple, no JVD Respiratory/Chest: lungs clear, no respiratory distress, no accessory muscle use Cardiovascular: regular rate, rhythm, no murmur Abdomen/GI: non tender, soft Extremities/Musculoskelatal: normal inspection, no pedal edema Neurologic/Psych: alert, normal mood/affect Social History Alcohol Use: none Marital Status: Housing Status: lives with family 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) Laboratory Results Past 24 Hours 01/26/18 06:01 01/26/18 06:01 Test 01/25/18 12:36 01/25/18 16:56 01/25/18 20:25 01/26/18 06:01 Prothrombin Time 12.0 SECONDS (9.0-12.0) Prothromb Time International Ratio 1.1 (0.9-1.1) Activated Partial Thromboplast Time 27.7 SECONDS (21.0-31.0) Partial Thromboplastin Ratio 1.1 Bedside Glucose 88 mg/dl (70-99) 160 mg/dl (70-99) Red Blood Count 3.65 M/uL (4.7-6.1) Mean Corpuscular Volume 84.7 fL (80-100) Mean Corpuscular Hemoglobin 28.2 pg (25-34) Mean Corpuscular Hemoglobin Concent 33.3 g/dl (32-36) RDW Standard Deviation 47.1 fL (36.4-46.3) RDW Coefficient of Variation 15.0 % (11.5-14.5) Mean Platelet Volume 10.2 fL (7.4-10.4) Anion Gap 6.0 mmol/L (3-11) Est Creatinine Clear Calc Drug Dose 24.9 ml/min Estimated GFR () 23.8 Estimated GFR (Non- 20.5 BUN/Creatinine Ratio 25.7 (10-20) Calcium Level 8.2 mg/dl (8.5-10.1) Magnesium Level 1.7 mg/dl (1.8-2.4) Test 01/26/18 07:58 01/26/18 12:15 Bedside Glucose 84 mg/dl (70-99) 131 mg/dl (70-99) Allergies Coded Allergies: No Known Allergies (Unverified , 01/17/18) Medications Current Inpatient Medications Medications (Trade) Dose Ordered Sig/Dianne Route Start Time Stop Time Status Last Admin Dose Admin Acetaminophen (Tylenol Tab) 650 mg Q4H PRN PO 01/14/18 10:30 02/13/18 10:29 01/25/18 09:24 650 MG Ondansetron HCl (Zofran Inj) 4 mg Q6H PRN IV 01/14/18 10:30 02/13/18 10:29 01/19/18 12:46 4 MG Citalopram Hydrobromide (celeXA TAB) 20 mg QAM PO 01/15/18 09:00 02/14/18 08:59 Future hold 01/26/18 09:23 20 MG Digoxin (Lanoxin Tab) 0.125 mg QAM PO 01/15/18 09:00 02/14/18 08:59 Future hold 01/26/18 09:25 0.125 MG Levothyroxine Sodium (Synthroid Tab) 100 mcg DAILYBB PO 01/15/18 06:00 02/14/18 05:59 01/26/18 05:36 100 MCG Metoprolol Tartrate (Lopressor Tab) 25 mg BID PO 01/14/18 21:00 02/13/18 20:59 01/26/18 09:24 25 MG Miscellaneous Information (Order Awaiting Action) 1 ea QS N/A 01/14/18 16:00 02/13/18 15:59 Ranitidine HCl (zANTac TAB) 300 mg HS PO 01/14/18 21:00 02/13/18 20:59 01/25/18 20:54 300 MG Glucose (Glucose 40% Gel) 15-30 GRAMS 15 GRAMS... UD PRN PO 01/14/18 11:45 02/13/18 11:44 01/24/18 17:36 15 GM Glucose (Glucose Chew Tab) 4-8 Tablets 4 Tabl... UD PRN PO 01/14/18 11:45 02/13/18 11:44 Dextrose (Dextrose 50% 50ML Syringe) 25-50ML OF 50% DW IV FOR... UD PRN IV 01/14/18 11:45 02/13/18 11:44 Glucagon (Glucagon Inj) 1 mg UD PRN SQ 01/14/18 11:45 02/13/18 11:44 Miscellaneous (Iv Fluids Completed) 1 ea PRN PRN N/A 01/14/18 16:15 01/14/19 16:14 Hydralazine HCl (HydrALAZINE INJ) 20 mg Q6 PRN IV. 01/17/18 08:45 02/13/18 11:14 Promethazine HCl 12.5 mg/Sodium Chloride 50.5 ml @ 202 mls/hr Q6H PRN IV 01/17/18 16:45 02/16/18 16:44 Future Hold Ondansetron HCl (Zofran Inj) 4 mg Q6H PRN IV 01/17/18 16:45 02/16/18 16:44 Metoclopramide HCl (Reglan Inj) 10 mg Q6H PRN IV 01/17/18 16:45 02/16/18 16:44 Lorazepam (Ativan Tab) 0.5 mg Q8H PRN PO 01/17/18 16:45 02/16/18 16:44 Future Hold Lorazepam 0.5 mg/ Syringe 0.25 ml @ 1 mls/min Q8H PRN IV 01/17/18 16:45 02/16/18 16:44 Future Hold Pneumococcal Polysaccharide Vaccine 1 ea PRN PRN N/A 01/17/18 16:45 02/16/18 16:44 Influenza Virus Vacc Triv Types A&B 1 ea PRN PRN N/A 01/17/18 16:45 02/16/18 16:44 Bisacodyl (Dulcolax Supp) 10 mg DAILY PRN CO 01/17/18 16:45 02/16/18 16:44 01/22/18 15:47 10 MG Magnesium Hydroxide (Milk Of Magnesia Susp) 30 ml DAILY PRN PO 01/17/18 16:45 02/16/18 16:44 Acetaminophen (Tylenol Tab) 1,000 mg Q8H PRN PO 01/17/18 16:45 02/16/18 16:44 01/17/18 23:08 1,000 MG Acetaminophen 100 ml @ 400 mls/hr Q8H PRN IV 01/17/18 16:45 02/16/18 16:44 01/21/18 08:14 400 MLS/HR Naloxone HCl (Narcan Inj) 0.1 mg Q5M PRN IV 01/17/18 16:45 02/16/18 16:44 Senna/Docusate Sodium (Senokot S Tab) 2 tab HS PO 01/17/18 21:00 02/16/18 20:59 01/25/18 20:54 2 TAB Hydroxyzine HCl (Vistaril Tab) 25 mg Q8H PRN PO 01/17/18 16:45 02/16/18 16:44 Al Hydroxide/Mg Hydroxide (Maalox Susp) 30 ml Q6H PRN PO 01/17/18 16:45 02/16/18 16:44 Famotidine (Pepcid Tab) 20 mg Q12 PRN PO 01/17/18 16:45 02/16/18 16:44 Diphenhydramine HCl (Benadryl Cap) 25 mg Q6H PRN PO 01/17/18 16:45 02/16/18 16:44 Future Hold Oxycodone HCl (Oxycontin Tab) 10 mg Q12H PO 01/18/18 17:00 02/01/18 16:59 Future Hold 01/23/18 05:11 10 MG Oxycodone HCl (Roxicodone Immediate Rel Tab) 5-10mg prn moderate to sev... Q4H PRN PO 01/19/18 11:45 02/02/18 11:44 01/22/18 15:52 5 MG Cyclobenzaprine HCl (Flexeril Tab) 5 mg BID PRN PO 01/20/18 11:45 02/19/18 11:44 01/24/18 08:13 5 MG Insulin Aspart (novoLOG ASPART) SLIDING SCALE G... ACHS SC 01/20/18 17:15 02/19/18 17:14 01/26/18 09:32 1 UNITS Albuterol/ Ipratropium (Duoneb) 3 ml QIDR INH 01/21/18 12:00 02/20/18 11:59 01/26/18 11:06 3 ML Albuterol/ Ipratropium (Duoneb) 3 ml Q2H PRN INH 01/21/18 11:00 02/20/18 10:59 Polyethylene (Miralax Powder Packet) 17 gm DAILY PO 01/24/18 09:00 02/13/18 11:44 Furosemide (Lasix Tab) 80 mg QAM PO 01/24/18 09:00 02/23/18 08:59 01/26/18 09:23 80 MG Lidocaine (Lidoderm Patch 5%) 1 patch QAM TD 01/25/18 09:00 02/24/18 08:59 01/26/18 09:25 1 PATCH Miscellaneous (Remove Lidoderm Patch) 1 ea DAILY@21 N/A 01/24/18 21:00 02/23/18 20:59 01/25/18 21:09 1 EA Insulin Glargine (Lantus Solostar Pen) 8 units BID SC 01/25/18 09:00 02/13/18 20:59 01/26/18 09:33 8 UNITS Heparin Sodium (Porcine) (Heparin Sq 5000 Unit/0.5ml) 5,000 unit Q12 SQ 01/25/18 21:00 02/24/18 20:59 01/26/18 09:33 5,000 UNIT Morphine Sulfate (MoRPHine SULFATE INJ) 2 mg Q4H PRN IV 01/26/18 09:00 02/09/18 08:59 Levofloxacin (Levaquin Tab) 500 mg Q48H PO 01/26/18 11:00 01/31/18 10:59 01/26/18 12:00 500 MG Impression (1) TANNER (acute kidney injury) (2) ATN (acute tubular necrosis) (3) Acute on chronic diastolic (congestive) heart failure (4) chf exac, and worsening spinal stenosis (5) Lumbar stenosis with neurogenic claudication Mr. Gonsalez is a 77-year-old male with chronic kidney disease III ( baseline creatinine around 1.7). He is POD#9 s/p laminectomy with lumbar fusion. Post operative course was complicated by TANNER consistent with ATN. ATN attributed to hemodynamic changes and NSAID use. He was oliguric but urine output has improved. I/O's not accurate due to incontinence. Electrolyte currently remain acceptable. Creatinine improving. Urinalysis positive for hematuria, proteinuria and pyuria. Renal ultrasound unremarkable. Recommendations -- Continue furosemide 80 mg QAM -- Continue to maintain slightly negative fluid balance -- Document I/O's and daily morning weight -- Medications appropriate for renal function: continue to avoid NSAIDS and suggest avoiding muscle relaxants -- Check orthostatic vitals -- Medications appropriate for renal function
--- NOTE | 2018-01-26 14:27 | Progress Note ---
Progress Note Date of Service Jan 26, 2018. Progress Note Patient's back pain is controlled. Is struggling with some right sided abdominal discomfort. This may coincide with some changes noted on his renal ultrasound. He has no neck pain no leg pain. On exam he is in the chair at the bedside. Abdomen is soft to palpation. He has good strength testing lower extremities. Assessment status post lumbar decompression and fusion. Plan at this time will continue to advance his therapy as tolerated. Hopefully he will be able to discharge to rehab by the end of the week.
[2018-01-26] MEDS: MoRPHine SULFATE 2 MG/ML CARP IV PRN ×2 (15:39→20:52)
[2018-01-26] MEDS ORDERED: OXYBUTYNIN CHLORIDE 5 MG TAB PO STA (16:04)
[2018-01-26] MEDS ORDERED: TAMSULOSIN HCL 0.4 MG CAP PO ONE (16:15)
--- NOTE | 2018-01-26 17:05 | Hospitalist Progress Note ---
Hospitalist Progress Note Date of Service Jan 26, 2018. (Nidhi Navarrete, KIYAC) Subjective Pt evaluation today including: conversation w/ patient, physical exam, lab review, review of studies, review of inpatient medication list Patient seen and evaluated. Patient had a fall overnight and reporting some increased soreness this AM but no significant injury. Patient having continued urinary frequency and R flank discomfort. Renal US with dilatation of R collecting system but no overt stones or hydronephrosis. - Pain appears to be trending from flank into groin. Possibly passing an occult stone or already passed Started one dose Ditropan and Flomax. Can use pain medication and strain urine. Also noted hematochezia this AM. Unsure if this is strictly in stool vs a reported ulceration in the buttocks region. Will continue to monitor and trend H &H Patient reports known hemorrhoids and also reporting he has looser stool at home chronically. Constitutional: No fever, No chills Respiratory: + cough, No sputum, No shortness of breath Cardiovascular: No chest pain Abdomen: + pain (R flank), + diarrhea, + GI bleeding (? Possible hematochezia vs ), No nausea, No vomiting Male : + urinary frequency, + incontinence, No dysuria Heme: No abnormal bleeding/bruising (Nidhi Navarrete, PA-C) Medications Current Inpatient Medications Medications (Trade) Dose Ordered Sig/Dianne Route Start Time Stop Time Status Last Admin Dose Admin Acetaminophen (Tylenol Tab) 650 mg Q4H PRN PO 01/14/18 10:30 02/13/18 10:29 01/25/18 09:24 650 MG Ondansetron HCl (Zofran Inj) 4 mg Q6H PRN IV 01/14/18 10:30 02/13/18 10:29 01/19/18 12:46 4 MG Citalopram Hydrobromide (celeXA TAB) 20 mg QAM PO 01/15/18 09:00 02/14/18 08:59 Future hold 01/26/18 09:23 20 MG Digoxin (Lanoxin Tab) 0.125 mg QAM PO 01/15/18 09:00 02/14/18 08:59 Future hold 01/26/18 09:25 0.125 MG Levothyroxine Sodium (Synthroid Tab) 100 mcg DAILYBB PO 01/15/18 06:00 02/14/18 05:59 01/26/18 05:36 100 MCG Metoprolol Tartrate (Lopressor Tab) 25 mg BID PO 01/14/18 21:00 02/13/18 20:59 01/26/18 09:24 25 MG Miscellaneous Information (Order Awaiting Action) 1 ea QS N/A 01/14/18 16:00 02/13/18 15:59 Ranitidine HCl (zANTac TAB) 300 mg HS PO 01/14/18 21:00 02/13/18 20:59 01/25/18 20:54 300 MG Glucose (Glucose 40% Gel) 15-30 GRAMS 15 GRAMS... UD PRN PO 01/14/18 11:45 02/13/18 11:44 01/24/18 17:36 15 GM Glucose (Glucose Chew Tab) 4-8 Tablets 4 Tabl... UD PRN PO 01/14/18 11:45 02/13/18 11:44 Dextrose (Dextrose 50% 50ML Syringe) 25-50ML OF 50% DW IV FOR... UD PRN IV 01/14/18 11:45 02/13/18 11:44 Glucagon (Glucagon Inj) 1 mg UD PRN SQ 01/14/18 11:45 02/13/18 11:44 Miscellaneous (Iv Fluids Completed) 1 ea PRN PRN N/A 01/14/18 16:15 01/14/19 16:14 Hydralazine HCl (HydrALAZINE INJ) 20 mg Q6 PRN IV. 01/17/18 08:45 02/13/18 11:14 Promethazine HCl 12.5 mg/Sodium Chloride 50.5 ml @ 202 mls/hr Q6H PRN IV 01/17/18 16:45 02/16/18 16:44 Future Hold Ondansetron HCl (Zofran Inj) 4 mg Q6H PRN IV 01/17/18 16:45 02/16/18 16:44 Metoclopramide HCl (Reglan Inj) 10 mg Q6H PRN IV 01/17/18 16:45 02/16/18 16:44 Lorazepam (Ativan Tab) 0.5 mg Q8H PRN PO 01/17/18 16:45 02/16/18 16:44 Future Hold Lorazepam 0.5 mg/ Syringe 0.25 ml @ 1 mls/min Q8H PRN IV 01/17/18 16:45 02/16/18 16:44 Future Hold Pneumococcal Polysaccharide Vaccine 1 ea PRN PRN N/A 01/17/18 16:45 02/16/18 16:44 Influenza Virus Vacc Triv Types A&B 1 ea PRN PRN N/A 01/17/18 16:45 02/16/18 16:44 Bisacodyl (Dulcolax Supp) 10 mg DAILY PRN TN 01/17/18 16:45 02/16/18 16:44 01/22/18 15:47 10 MG Magnesium Hydroxide (Milk Of Magnesia Susp) 30 ml DAILY PRN PO 01/17/18 16:45 02/16/18 16:44 Acetaminophen (Tylenol Tab) 1,000 mg Q8H PRN PO 01/17/18 16:45 02/16/18 16:44 01/17/18 23:08 1,000 MG Acetaminophen 100 ml @ 400 mls/hr Q8H PRN IV 01/17/18 16:45 02/16/18 16:44 01/21/18 08:14 400 MLS/HR Naloxone HCl (Narcan Inj) 0.1 mg Q5M PRN IV 01/17/18 16:45 02/16/18 16:44 Senna/Docusate Sodium (Senokot S Tab) 2 tab HS PO 01/17/18 21:00 02/16/18 20:59 01/25/18 20:54 2 TAB Hydroxyzine HCl (Vistaril Tab) 25 mg Q8H PRN PO 01/17/18 16:45 02/16/18 16:44 Al Hydroxide/Mg Hydroxide (Maalox Susp) 30 ml Q6H PRN PO 01/17/18 16:45 02/16/18 16:44 Famotidine (Pepcid Tab) 20 mg Q12 PRN PO 01/17/18 16:45 02/16/18 16:44 Diphenhydramine HCl (Benadryl Cap) 25 mg Q6H PRN PO 01/17/18 16:45 02/16/18 16:44 Future Hold Oxycodone HCl (Oxycontin Tab) 10 mg Q12H PO 01/18/18 17:00 02/01/18 16:59 Future Hold 01/23/18 05:11 10 MG Oxycodone HCl (Roxicodone Immediate Rel Tab) 5-10mg prn moderate to sev... Q4H PRN PO 01/19/18 11:45 02/02/18 11:44 01/22/18 15:52 5 MG Cyclobenzaprine HCl (Flexeril Tab) 5 mg BID PRN PO 01/20/18 11:45 02/19/18 11:44 01/24/18 08:13 5 MG Insulin Aspart (novoLOG ASPART) SLIDING SCALE G... ACHS SC 01/20/18 17:15 02/19/18 17:14 01/26/18 13:28 2 UNITS Albuterol/ Ipratropium (Duoneb) 3 ml QIDR INH 01/21/18 12:00 02/20/18 11:59 01/26/18 14:47 3 ML Albuterol/ Ipratropium (Duoneb) 3 ml Q2H PRN INH 01/21/18 11:00 02/20/18 10:59 Polyethylene (Miralax Powder Packet) 17 gm DAILY PO 01/24/18 09:00 02/13/18 11:44 Furosemide (Lasix Tab) 80 mg QAM PO 01/24/18 09:00 02/23/18 08:59 01/26/18 09:23 80 MG Lidocaine (Lidoderm Patch 5%) 1 patch QAM TD 01/25/18 09:00 02/24/18 08:59 01/26/18 09:25 1 PATCH Miscellaneous (Remove Lidoderm Patch) 1 ea DAILY@21 N/A 01/24/18 21:00 02/23/18 20:59 01/25/18 21:09 1 EA Insulin Glargine (Lantus Solostar Pen) 8 units BID SC 01/25/18 09:00 02/13/18 20:59 01/26/18 09:33 8 UNITS Heparin Sodium (Porcine) (Heparin Sq 5000 Unit/0.5ml) 5,000 unit Q12 SQ 01/25/18 21:00 02/24/18 20:59 4/4/18 09:33 5,000 UNIT Morphine Sulfate (MoRPHine SULFATE INJ) 2 mg Q4H PRN IV 01/26/18 09:00 02/09/18 08:59 01/26/18 15:39 2 MG Levofloxacin (Levaquin Tab) 500 mg Q48H PO 01/26/18 11:00 01/31/18 10:59 01/26/18 12:00 500 MG (Nidhi Navarrete PA-C) Objective Vital Signs Date Time Temp Pulse Resp B/P (MAP) Pulse Ox O2 Delivery O2 Flow Rate FiO2 01/26/18 15:57 36.6 92 20 187/82 (117) 94 Room Air 01/26/18 14:47 87 18 95 Room Air 01/26/18 11:07 82 16 95 Room Air 01/26/18 09:25 80 01/26/18 08:06 95 Nasal Cannula 2.0 01/26/18 07:50 97 Nasal Cannula 2.0 01/26/18 07:30 37.1 82 18 170/62 (98) 95 Nasal Cannula 2.0 170/78 (108) 01/26/18 06:53 74 16 97 Nasal Cannula 2.0 01/25/18 23:31 37.4 92 17 159/68 (98) 97 Room Air 01/25/18 19:35 83 16 94 Room Air 01/25/18 19:25 Room Air (Nidhi Navarrete PA-C) Physical Exam General Appearance: WD/WN, no apparent distress Eyes: sclerae normal ENT: hearing grossly normal Neck: supple, no JVD, trachea midline Respiratory/Chest: lungs clear, no respiratory distress, no accessory muscle use Cardiovascular: regular rate, rhythm, no gallop, no murmur Abdomen: normal bowel sounds, non tender, soft Extremities: no pedal edema, no calf tenderness Neurologic/Psychiatric: alert Skin: normal color (Nidhi Navarrete PA-C) Laboratory Results Last 24 Hours Test 01/25/18 16:56 01/25/18 20:25 01/26/18 06:01 01/26/18 07:58 Bedside Glucose 88 mg/dl 160 mg/dl 84 mg/dl White Blood Count 8.73 K/uL Red Blood Count 3.65 M/uL Hemoglobin 10.3 g/dL Hematocrit 30.9 % Mean Corpuscular Volume 84.7 fL Mean Corpuscular Hemoglobin 28.2 pg Mean Corpuscular Hemoglobin Concent 33.3 g/dl RDW Standard Deviation 47.1 fL RDW Coefficient of Variation 15.0 % Platelet Count 205 K/uL Mean Platelet Volume 10.2 fL Sodium Level 139 mmol/L Potassium Level 3.7 mmol/L Chloride Level 107 mmol/L Carbon Dioxide Level 26 mmol/L Anion Gap 6.0 mmol/L Blood Urea Nitrogen 73 mg/dl Creatinine 2.83 mg/dl Est Creatinine Clear Calc Drug Dose 24.9 ml/min Estimated GFR () 23.8 Estimated GFR (Non- 20.5 BUN/Creatinine Ratio 25.7 Random Glucose 81 mg/dl Calcium Level 8.2 mg/dl Magnesium Level 1.7 mg/dl Test 01/26/18 12:15 Bedside Glucose 131 mg/dl (Nidhi Navarrete, KIYAC) Assessment and Plan 77 yo male with acute pulmonary edema due to noncompliance with Lasix Urinary Frequency with Flank Pain/Groin Pain: - Repeat renal U/S with findings of dilated R collecting system but no visible stone or hydro; pain is lowering into groin - possible occult stone? already passed stone? - Strain urine; Ditropan x 1 dose and Flomax x 1 dose and monitor tolerance - if good response could add on more doses - Levaquin 500 mg Q48H started Possible Hematochezia vs Bleeding Ulceration: - Does have some skin compromise that may have been source of bright red blood vs hemorrhoidal - will monitor - Hgb stable Mechanical Fall on 01/25: - Patient tried to ambulate unassisted and slipped in his urine due to incontinence; some generalized soreness but no injury - Bed alarm placed and encouraged patient to ring at all times for assistance Acute on Chronic Diastolic CHF 2/2 Non-Compliance: STABLE - Laying flat in bed without orthopnea; does have intermittent desats but reports no SOB; reports chronic cough that is non-productive Accelerated HTN: STABLE - Digoxin resumed and Lisinopril remains on hold due to TANNER; Has intermittent highs - U/S obtained with no subclavian stenosis - obtained due to discrepancies in BP readings in arms - Lopressor 25 mg BID TANNER on CKD Stage III: SLOWLY IMPROVING - Cr continues to trend down and at 2.83 today - responding to Lasix as well as UO stable - Nephrology following - appreciate assistance and continued diuretics Recent UTI (as outpatient) - Citrobacter: RESOLVED - Abx Tx Completed T2DM: - Had hypoglycemia this AM and Lantus was reduced to 8 units SC BID; Will continue to monitor Hypothyroidism: STABLE - Synthroid 100 mcg daily Lumbar Spinal Stenosis S/P Decompression: IMPROVING - Continue bowel regimen - Senna and can use intermittent suppositories - Dr. Brown following - appreciate recommendations and surgical intervention DVT Prophylaxis: Heparin Code Status: FULL RESUSCITATION Disposition: - Hopeful creatinine will be at a more acceptable level in next day or so; Possible D/C to [facility] in next coming days Continued [facility] stay due to: multiple IV medications needed Discharge planning: rehab hospital (Nidhi Navarrete, PA-C) PA Physician Supervision Note: I interviewed and examined the patient. Discussed with Nidhi Navarrete PAC and agree with findings and plan as documented in the note. Any exceptions or clarifications are listed here: None This pt had a fall overnight, some slight musculoskeletal pain but no apparent injury 37.1 82 18 170/62 he is awake and alert some mild flank pain car is regular, lungs are clear no bruising on flank acute diastolic heart failure is resolving, some concern of possibly passed right kidney stone, starting antibiotics and straining urine continue to follow renal function and diabetes Documented By: Camacho Conti (Camacho Conti M.D.)
--- NOTE | 2018-01-26 19:17 | DIAGNOSTIC IMAGING REPORT ---
KUB CLINICAL HISTORY: Nephrolithiasis. Dilated right renal collecting system. Final is: 2 AP supine abdominal radiographs are correlated with renal ultrasound dated 01/26/2018. There is a nonobstructed abdominal bowel gas pattern. Cholecystectomy clips are identified in the right upper quadrant. There is no radiographic evidence of nephrolithiasis. No calcifications are seen projecting along the course of the ureters. A phlebolith is noted in the pelvis. The skeletal structures are osteopenic. Multilevel fusion change is seen in the lumbar spine. IMPRESSION: 1. Nonobstructed abdominal bowel gas pattern. 2. There is no radiographic evidence of nephrolithiasis. Electronically signed by: Nitin Crowley M.D. 01/26/2018 7:15 PM Dictated Date/Time: 01/26/2018 7:14 PM
[2018-01-26] MEDS: RANITIDINE HCL 150 MG TAB PO SCH (20:48)
[2018-01-27] VITALS (9 sets, daily range): BP systolic 141–157; BP diastolic 63–75; PULSE 73–85; TEMP 36.6–37; O2SAT 91–96
[2018-01-27] MEDS: LEVOTHYROXINE 100 MCG TAB PO SCH (06:21)
[2018-01-27 07:08] LABS: HEMATOCRIT 34.1 % (42-52); HEMOGLOBIN 10.8 g/dL (14.0-18.0); MEAN CELL VOLUME 85.3 fL (80-100); MEAN CORPUSCULAR HGB CONC 31.7 g/dl (32-36); MEAN PLATELET VOLUME 10.2 fL (7.4-10.4); PLATELET COUNT 230 K/uL (130-400); RED CELL DISTRIBUTION WIDTH CV 14.9 % (11.5-14.5); WHITE BLOOD COUNT 7.05 K/uL (4.8-10.8)
[2018-01-27 07:39] LABS: ALBUMIN 2.2 gm/dl (3.4-5.0); CALCIUM 8.7 mg/dl (8.5-10.1); CREATININE 2.76 mg/dl (0.60-1.40); PHOSPHORUS 4.4 mg/dl (2.5-4.9); POTASSIUM 3.5 mmol/L (3.5-5.1)
[2018-01-27] MEDS: ALBUT/IPRATROP 3MG/0.5MG NEB 3 ML VIAL INH SCH ×4 (07:41→18:49)
[2018-01-27] MEDS: POLYETHYLENE (MIRALAX) 17 GM PACK PO SCH ×2 (08:23→16:21)
[2018-01-27] MEDS: LIDODERM (LIDOCAINE) PATCH 5% TD SCH (08:23)
[2018-01-27] MEDS: CITALOPRAM 20 MG TAB PO SCH (08:27)
[2018-01-27] MEDS: METOPROLOL TARTRATE 25 MG TAB PO SCH ×2 (08:27→21:17)
[2018-01-27] MEDS: DIGOXIN 0.125 MG TAB PO SCH (08:27)
[2018-01-27] MEDS: FUROSEMIDE 80 MG TAB PO SCH (08:27)
--- NOTE | 2018-01-27 08:36 | Progress Note ---
Subjective Date of Service: Jan 27, 2018. Subjective this pt is markedly improved, his is at the bedside and the pts pain is much improved Review of Systems Constitutional: No fever, No chills Respiratory: No cough, No shortness of breath Cardiac: No chest pain, No edema Abdomen: No pain, No nausea, No vomiting, No diarrhea Musculoskeletal: No joint pain, No muscle pain, No swelling Male : No dysuria, No urinary frequency, No incontinence Psychiatric: No depression symptoms, No anhedonism Objective Vital Signs Date Time Temp Pulse Resp B/P (MAP) Pulse Ox O2 Delivery O2 Flow Rate FiO2 01/27/18 08:26 73 01/27/18 07:35 36.6 73 16 149/75 (99) 93 Room Air 01/27/18 07:22 73 16 96 Room Air 01/27/18 00:20 77 157/68 (97) 01/26/18 23:55 36.6 81 18 187/89 (121) 93 Room Air 01/26/18 20:50 100 175/78 (110) 01/26/18 19:45 Room Air 01/26/18 19:25 93 16 96 Room Air 01/26/18 17:40 96 169/79 (109) 01/26/18 15:57 36.6 92 20 187/82 (117) 94 Room Air 01/26/18 14:47 87 18 95 Room Air 01/26/18 11:07 82 16 95 Room Air 01/26/18 09:25 80 Physical Exam General Appearance: WD/WN, + mild distress Eyes: normal inspection, sclerae normal Neck: supple, no JVD Respiratory/Chest: chest non-tender, lungs clear, normal breath sounds Cardiovascular: regular rate, rhythm, no murmur Abdomen: normal bowel sounds, non tender, soft Extremities: no pedal edema, no calf tenderness Neurologic/Psychiatric: alert, oriented x 3 Laboratory Results Last 24 Hours Test 01/26/18 12:15 01/26/18 17:06 01/26/18 20:42 01/27/18 06:44 Bedside Glucose 131 mg/dl 116 mg/dl 124 mg/dl White Blood Count 7.05 K/uL Red Blood Count 4.00 M/uL Hemoglobin 10.8 g/dL Hematocrit 34.1 % Mean Corpuscular Volume 85.3 fL Mean Corpuscular Hemoglobin 27.0 pg Mean Corpuscular Hemoglobin Concent 31.7 g/dl RDW Standard Deviation 47.0 fL RDW Coefficient of Variation 14.9 % Platelet Count 230 K/uL Mean Platelet Volume 10.2 fL Sodium Level 141 mmol/L Potassium Level 3.5 mmol/L Chloride Level 106 mmol/L Carbon Dioxide Level 29 mmol/L Anion Gap 7.0 mmol/L Blood Urea Nitrogen 63 mg/dl Creatinine 2.76 mg/dl Est Creatinine Clear Calc Drug Dose 25.3 ml/min Estimated GFR () 24.5 Estimated GFR (Non- 21.2 BUN/Creatinine Ratio 22.6 Random Glucose 97 mg/dl Calcium Level 8.7 mg/dl Phosphorus Level 4.4 mg/dl Albumin 2.2 gm/dl Test 01/27/18 07:56 Bedside Glucose 91 mg/dl Assessment and Plan 77 yo male with acute pulmonary edema secondary to acute on chronic diastolic heart failure after lumbar decompression surgery Urinary Frequency with Flank Pain/Groin Pain: - Repeat renal U/S with findings of dilated R collecting system but no visible stone or hydro; questionably passed stone - Strain urine; flomax and proscar - Levaquin 500 mg Q48H started Possible Hematochezia likely hemorrhoidal - Hgb stable Mechanical Fall on 01/25: - Patient tried to ambulate unassisted and slipped seemingly musculoskeletal injury only Acute on Chronic Diastolic CHF improved HTN: STABLE Lisinopril remains on hold due to TANNER; Has intermittent highs - U/S obtained with no subclavian stenosis - obtained due to discrepancies in BP readings in arms - Lopressor 25 mg BID TANNER on CKD Stage III: IMPROVING - Nephrology following - appreciate assistance and continued diuretics Recent UTI (as outpatient) - Citrobacter: RESOLVED - Abx Tx Completed T2DM: basal bolus Hypothyroidism: STABLE on Synthroid 100 mcg daily Lumbar Spinal Stenosis S/P Decompression: IMPROVING - Continue bowel regimen - Senna and can use intermittent suppositories - Dr. Brown following - appreciate recommendations DVT Prophylaxis: Heparin Code Status: FULL RESUSCITATION Continued [facility] stay due to: multiple IV medications needed Discharge planning: rehab hospital
[2018-01-27] MEDS: INSULIN ASPART 100 UNITS/ML 3 ML PEN SC SCH ×4 (08:40→21:20)
[2018-01-27] MEDS: HEPARIN SOD 5000 UNIT/0.5 ML CARP SQ SCH ×2 (08:41→21:21)
[2018-01-27] MEDS: INSULIN GLARGINE SOLOSTAR 100 UNITS/ML 3 ML PEN SC SCH ×2 (08:42→21:20)
--- NOTE | 2018-01-27 10:50 | Nephrology Progress Note ---
Nephrology Progress Note Date of Service Jan 27, 2018. Chief Complaint TANNER Subjective Camacho was suffering with pelvic pain and discomfort yesterday. He was found to have evidence of bladder outlet obstruction. Rodarte was placed and the patient is more comfortable this morning. His appetite is good. No fevers or chills. Pain control improving. Review of Systems A complete review of systems was performed. Pertinent positives are noted above. All other systems are negative. Vital Signs Last 8 Hrs Date Time Temp Pulse Resp B/P (MAP) Pulse Ox O2 Delivery O2 Flow Rate FiO2 01/27/18 08:27 73 01/27/18 08:26 73 01/27/18 07:40 Room Air 01/27/18 07:35 36.6 73 16 149/75 (99) 93 Room Air 01/27/18 07:22 73 16 96 Room Air Last Recorded Weight Weight (Kilograms): 93.700 Physical Exam General Appearance: WD/WN, no apparent distress Head: normocephalic, atraumatic Eyes: normal inspection, sclerae normal ENT: normal ENT inspection, pharynx normal Neck: supple, no JVD Respiratory/Chest: no respiratory distress, no accessory muscle use, + decreased breath sounds, + rales (few basilar) Cardiovascular: regular rate, rhythm, no JVD Back: no CVA tenderness, + pertinent finding (Lumbar dressing CDI) Abdomen/GI: non tender, soft Genitourinary - Male: + pertinent finding (Rodarte draining yellow urine) Extremities/Musculoskelatal: normal inspection, no pedal edema Neurologic/Psych: alert, normal mood/affect Social History Alcohol Use: none Marital Status: Housing Status: lives with family 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) Laboratory Results Past 24 Hours 01/27/18 06:44 01/27/18 06:44 Test 01/26/18 12:15 01/26/18 17:06 01/26/18 20:42 01/27/18 06:44 Bedside Glucose 131 mg/dl (70-99) 116 mg/dl (70-99) 124 mg/dl (70-99) Red Blood Count 4.00 M/uL (4.7-6.1) Mean Corpuscular Volume 85.3 fL (80-100) Mean Corpuscular Hemoglobin 27.0 pg (25-34) Mean Corpuscular Hemoglobin Concent 31.7 g/dl (32-36) RDW Standard Deviation 47.0 fL (36.4-46.3) RDW Coefficient of Variation 14.9 % (11.5-14.5) Mean Platelet Volume 10.2 fL (7.4-10.4) Anion Gap 7.0 mmol/L (3-11) Est Creatinine Clear Calc Drug Dose 25.3 ml/min Estimated GFR () 24.5 Estimated GFR (Non- 21.2 BUN/Creatinine Ratio 22.6 (10-20) Calcium Level 8.7 mg/dl (8.5-10.1) Phosphorus Level 4.4 mg/dl (2.5-4.9) Albumin 2.2 gm/dl (3.4-5.0) Test 01/27/18 07:56 Bedside Glucose 91 mg/dl (70-99) Allergies Coded Allergies: No Known Allergies (Unverified , 01/17/18) Medications Current Inpatient Medications Medications (Trade) Dose Ordered Sig/Dianne Route Start Time Stop Time Status Last Admin Dose Admin Acetaminophen (Tylenol Tab) 650 mg Q4H PRN PO 01/14/18 10:30 02/13/18 10:29 01/25/18 09:24 650 MG Ondansetron HCl (Zofran Inj) 4 mg Q6H PRN IV 01/14/18 10:30 02/13/18 10:29 01/19/18 12:46 4 MG Citalopram Hydrobromide (celeXA TAB) 20 mg QAM PO 01/15/18 09:00 02/14/18 08:59 Future hold 01/27/18 08:27 20 MG Digoxin (Lanoxin Tab) 0.125 mg QAM PO 01/15/18 09:00 02/14/18 08:59 Future hold 01/27/18 08:27 0.125 MG Levothyroxine Sodium (Synthroid Tab) 100 mcg DAILYBB PO 01/15/18 06:00 02/14/18 05:59 01/27/18 06:21 100 MCG Metoprolol Tartrate (Lopressor Tab) 25 mg BID PO 01/14/18 21:00 02/13/18 20:59 01/27/18 08:27 25 MG Miscellaneous Information (Order Awaiting Action) 1 ea QS N/A 01/14/18 16:00 02/13/18 15:59 Ranitidine HCl (zANTac TAB) 300 mg HS PO 01/14/18 21:00 02/13/18 20:59 01/26/18 20:48 300 MG Glucose (Glucose 40% Gel) 15-30 GRAMS 15 GRAMS... UD PRN PO 01/14/18 11:45 02/13/18 11:44 01/24/18 17:36 15 GM Glucose (Glucose Chew Tab) 4-8 Tablets 4 Tabl... UD PRN PO 01/14/18 11:45 02/13/18 11:44 Dextrose (Dextrose 50% 50ML Syringe) 25-50ML OF 50% DW IV FOR... UD PRN IV 01/14/18 11:45 02/13/18 11:44 Glucagon (Glucagon Inj) 1 mg UD PRN SQ 01/14/18 11:45 02/13/18 11:44 Miscellaneous (Iv Fluids Completed) 1 ea PRN PRN N/A 01/14/18 16:15 01/14/19 16:14 Hydralazine HCl (HydrALAZINE INJ) 20 mg Q6 PRN IV. 01/17/18 08:45 02/13/18 11:14 Promethazine HCl 12.5 mg/Sodium Chloride 50.5 ml @ 202 mls/hr Q6H PRN IV 01/17/18 16:45 02/16/18 16:44 Future Hold Ondansetron HCl (Zofran Inj) 4 mg Q6H PRN IV 01/17/18 16:45 02/16/18 16:44 Metoclopramide HCl (Reglan Inj) 10 mg Q6H PRN IV 01/17/18 16:45 02/16/18 16:44 Lorazepam (Ativan Tab) 0.5 mg Q8H PRN PO 01/17/18 16:45 02/16/18 16:44 Future Hold Lorazepam 0.5 mg/ Syringe 0.25 ml @ 1 mls/min Q8H PRN IV 01/17/18 16:45 02/16/18 16:44 Future Hold Pneumococcal Polysaccharide Vaccine 1 ea PRN PRN N/A 01/17/18 16:45 02/16/18 16:44 Influenza Virus Vacc Triv Types A&B 1 ea PRN PRN N/A 01/17/18 16:45 02/16/18 16:44 Bisacodyl (Dulcolax Supp) 10 mg DAILY PRN OH 01/17/18 16:45 02/16/18 16:44 01/22/18 15:47 10 MG Magnesium Hydroxide (Milk Of Magnesia Susp) 30 ml DAILY PRN PO 01/17/18 16:45 02/16/18 16:44 Acetaminophen (Tylenol Tab) 1,000 mg Q8H PRN PO 01/17/18 16:45 02/16/18 16:44 01/17/18 23:08 1,000 MG Acetaminophen 100 ml @ 400 mls/hr Q8H PRN IV 01/17/18 16:45 02/16/18 16:44 01/21/18 08:14 400 MLS/HR Naloxone HCl (Narcan Inj) 0.1 mg Q5M PRN IV 01/17/18 16:45 02/16/18 16:44 Hydroxyzine HCl (Vistaril Tab) 25 mg Q8H PRN PO 01/17/18 16:45 02/16/18 16:44 Al Hydroxide/Mg Hydroxide (Maalox Susp) 30 ml Q6H PRN PO 01/17/18 16:45 02/16/18 16:44 Famotidine (Pepcid Tab) 20 mg Q12 PRN PO 01/17/18 16:45 02/16/18 16:44 Diphenhydramine HCl (Benadryl Cap) 25 mg Q6H PRN PO 01/17/18 16:45 02/16/18 16:44 Future Hold Oxycodone HCl (Oxycontin Tab) 10 mg Q12H PO 01/18/18 17:00 02/01/18 16:59 Future Hold 01/23/18 05:11 10 MG Oxycodone HCl (Roxicodone Immediate Rel Tab) 5-10mg prn moderate to sev... Q4H PRN PO 01/19/18 11:45 02/02/18 11:44 01/22/18 15:52 5 MG Cyclobenzaprine HCl (Flexeril Tab) 5 mg BID PRN PO 01/20/18 11:45 02/19/18 11:44 4//18 08:13 5 MG Insulin Aspart (novoLOG ASPART) SLIDING SCALE G... ACHS SC 01/20/18 17:15 02/19/18 17:14 01/27/18 08:40 4 UNITS Albuterol/ Ipratropium (Duoneb) 3 ml QIDR INH 01/21/18 12:00 02/20/18 11:59 01/27/18 07:41 3 ML Albuterol/ Ipratropium (Duoneb) 3 ml Q2H PRN INH 01/21/18 11:00 02/20/18 10:59 Polyethylene (Miralax Powder Packet) 17 gm DAILY PO 01/24/18 09:00 02/13/18 11:44 Furosemide (Lasix Tab) 80 mg QAM PO 01/24/18 09:00 02/23/18 08:59 01/27/18 08:27 80 MG Lidocaine (Lidoderm Patch 5%) 1 patch QAM TD 01/25/18 09:00 02/24/18 08:59 01/26/18 09:25 1 PATCH Miscellaneous (Remove Lidoderm Patch) 1 ea DAILY@21 N/A 01/24/18 21:00 02/23/18 20:59 01/26/18 19:34 1 EA Insulin Glargine (Lantus Solostar Pen) 8 units BID SC 01/25/18 09:00 02/13/18 20:59 01/27/18 08:42 8 UNITS Heparin Sodium (Porcine) (Heparin Sq 5000 Unit/0.5ml) 5,000 unit Q12 SQ 01/25/18 21:00 02/24/18 20:59 01/27/18 08:41 5,000 UNIT Morphine Sulfate (MoRPHine SULFATE INJ) 2 mg Q4H PRN IV 01/26/18 09:00 02/09/18 08:59 01/26/18 20:52 2 MG Levofloxacin (Levaquin Tab) 500 mg Q48H PO 01/26/18 11:00 01/31/18 10:59 01/26/18 12:00 500 MG Impression (1) TANNER (acute kidney injury) (2) ATN (acute tubular necrosis) (3) Acute on chronic diastolic (congestive) heart failure (4) chf exac, and worsening spinal stenosis (5) Lumbar stenosis with neurogenic claudication Mr. Gonsalez is a 77-year-old male with chronic kidney disease III ( baseline creatinine around 1.7). He is POD#10 s/p laminectomy with lumbar fusion. Post operative course was complicated by TANNER consistent with ATN. ATN attributed to hemodynamic changes and NSAID use. He has developed bladder outlet obstruction requiring Rodarte placement. Electrolyte currently remain acceptable. Creatinine improving. Urinalysis positive for hematuria, proteinuria and pyuria. Renal ultrasound unremarkable. Recommendations -- Continue furosemide 80 mg QAM, volume status improving and diuretic may be reduced -- Continue to maintain slightly negative fluid balance -- Document I/O's and daily morning weight -- Medications appropriate for renal function: continue to avoid NSAIDS and suggest avoiding muscle relaxants -- Medications appropriate for renal function -- Consider tamsulosin 0.4 mg daily
--- NOTE | 2018-01-27 15:08 | Progress Note ---
Progress Note Date of Service Jan 27, 2018. Progress Note Patient's back pain and abdominal pain is markedly improved today. He is tolerating ambulation well today. He is not taking any pain medication in the past 24 hours. On exam he is alert and oriented very comfortable. His excellent strength testing. Assessment status post lumbar decompression fusion. Plan at this time we will continue physical therapy and he is ready for transfer to rehab when cleared by medicine.
[2018-01-27] MEDS: OXYCODONE HCL IR 5 MG TAB (IMMEDIATE RELEASE) PO PRN (17:10)
[2018-01-27] MEDS: ACETAMINOPHEN 325 MG TAB PO PRN (17:10)
[2018-01-27] MEDS ORDERED: TAMSULOSIN HCL 0.4 MG CAP PO SCH (21:00)
[2018-01-27] MEDS: RANITIDINE HCL 150 MG TAB PO SCH (21:17)
[2018-01-28] MEDS: LEVOTHYROXINE 100 MCG TAB PO SCH (06:08)
[2018-01-28 07:12] VITALS: PULSE 78; O2SAT 92
[2018-01-28] MEDS: ALBUT/IPRATROP 3MG/0.5MG NEB 3 ML VIAL INH SCH ×2 (07:12→11:07)
[2018-01-28] MEDS ORDERED: NVLGIPEN SC (07:23)
[2018-01-28] MEDS ORDERED: LVQ500 PO (07:23)
[2018-01-28] MEDS ORDERED: ACET-24 PO (07:23)
[2018-01-28] MEDS ORDERED: LDDP5 TD (07:23)
[2018-01-28] MEDS ORDERED: FLM4 PO (07:23)
[2018-01-28] MEDS ORDERED: IPRASOL4 INH (07:23)
[2018-01-28] MEDS ORDERED: LSX80 PO (07:23)
[2018-01-28] MEDS ORDERED: INSDGIPEN SC (07:23)
--- NOTE | 2018-01-28 07:27 | Discharge Instructions ---
Discharge Instructions Date of Service Jan 28, 2018. Admission Reason for Admission: Chf Exac, And Worsening Spinal Stenosis Discharge Discharge Diagnosis / Problem: spinal stenosis s/p surgery, diastolic HF, probable renal colic, Discharge Goals Goal(s): Diagnostic testing, Therapeutic intervention Activity Recommendations Activity Level: Assistance Required Therapies: Physical Therapy, Occupational Therapy . Additional Information Patient informed of condition: Yes Advance Directives: Yes DNR: No Level of Care: Acute Rehab Communicable Disease: No Prognosis: Stable Rodarte Catheter: No Instructions / Follow-Up Instructions / Follow-Up 77 yo male with acute pulmonary edema secondary to acute on chronic diastolic heart failure after lumbar decompression surgery Urinary Frequency with Flank Pain/Groin Pain: - Repeat renal U/S with findings of dilated R collecting system but no visible stone or hydro; questionably passed stone - Strain urine; flomax and proscar - Levaquin 500 mg Q48H started Possible Hematochezia likely hemorrhoidal - Hgb stable Mechanical Fall on 01/25: - Patient tried to ambulate unassisted and slipped seemingly musculoskeletal injury only Acute on Chronic Diastolic CHF improved HTN: STABLE Lisinopril remains on hold due to TANNER; - U/S obtained with no subclavian stenosis - obtained due to discrepancies in BP readings in arms - Lopressor 25 mg BID TANNER on CKD Stage III: IMPROVING - Nephrology following - appreciate assistance and continued diuretics Recent UTI (as outpatient) - Citrobacter: RESOLVED - with return of colic was placed on renal dose levaquin T2DM: basal bolus, may need to transition to oral meds at discharge Hypothyroidism: STABLE on Synthroid 100 mcg daily Lumbar Spinal Stenosis S/P Decompression: IMPROVING - Continue bowel regimen - Senna - Dr. Brown will follow up as outpt Current Hospital Diet Patient's current hospital diet: Diabetes Type 2 Diet, Low Sodium Diet (2gm Na) Discharge Diet Recommended Diet: Diabetes Type 2 Diet Procedures Procedures Performed: 1. Lumbar decompression medial facetectomies foraminotomies L2-3 L3-4 L4-5. #2 posterior spinal fusion L2-3 L3-4 L4-5. #3 placement posterior segmental instrumentation L3-4 L4-5 L5-S1. #4 placement of locally harvested morselized autograft in the posterior lateral gutters. #5 placement InFUSE collagen sponge, mass graft the posterior lateral gutters. Pending Studies Studies pending at discharge: no Medical Emergencies . Who to Call and When: Medical Emergencies: If at any time you feel your situation is an emergency, please call 911 immediately. . Non-Emergent Contact Non-Emergency issues call your: Primary Care Provider Call Non-Emergent contact if: temperature is above 101, your pain is unusual for you . . "Provider Documentation" section prepared by Camacho Conti. . Core Measure Problem Core Measures: None
[2018-01-28 07:46] VITALS: BP 118/76; PULSE 86; TEMP 36.8; O2SAT 95
[2018-01-28 08:08] LABS: HEMATOCRIT 30.1 % (42-52); HEMOGLOBIN 9.8 g/dL (14.0-18.0); MEAN CELL VOLUME 84.3 fL (80-100); MEAN CORPUSCULAR HEMOGLOBIN 27.5 pg (25-34); MEAN CORPUSCULAR HGB CONC 32.6 g/dl (32-36); MEAN PLATELET VOLUME 10.2 fL (7.4-10.4); PLATELET COUNT 205 K/uL (130-400); RED CELL DISTRIBUTION WIDTH CV 14.8 % (11.5-14.5); RED CELL DISTRIBUTION WIDTH SD 45.7 fL (36.4-46.3); WHITE BLOOD COUNT 8.16 K/uL (4.8-10.8)
[2018-01-28 08:40] LABS: CALCIUM 8.2 mg/dl (8.5-10.1); CREATININE 2.88 mg/dl (0.60-1.40); POTASSIUM 3.7 mmol/L (3.5-5.1)
[2018-01-28] MEDS: LIDODERM (LIDOCAINE) PATCH 5% TD SCH (09:00)
[2018-01-28] MEDS ORDERED: FINASTERIDE 5 MG TAB PO SCH (09:00)
[2018-01-28] MEDS: METOPROLOL TARTRATE 25 MG TAB PO SCH (09:04)
[2018-01-28] MEDS: DIGOXIN 0.125 MG TAB PO SCH (09:05)
[2018-01-28] MEDS: FUROSEMIDE 80 MG TAB PO SCH (09:06)
[2018-01-28] MEDS: POLYETHYLENE (MIRALAX) 17 GM PACK PO SCH (09:06)
[2018-01-28] MEDS: CITALOPRAM 20 MG TAB PO SCH (09:06)
[2018-01-28] MEDS: INSULIN ASPART 100 UNITS/ML 3 ML PEN SC SCH ×2 (09:16→13:05)
[2018-01-28] MEDS: INSULIN GLARGINE SOLOSTAR 100 UNITS/ML 3 ML PEN SC SCH (09:16)
[2018-01-28] MEDS: HEPARIN SOD 5000 UNIT/0.5 ML CARP SQ SCH (09:17)
[2018-01-28 09:51] VITALS: O2SAT 95
[2018-01-28 11:08] VITALS: PULSE 69; O2SAT 93
[2018-01-28] MEDS: LEVOFLOXACIN 500 MG TAB PO SCH (11:28)
[2018-01-28] MEDS: ACETAMINOPHEN 500 MG TAB PO PRN (11:29)
[2018-01-28 12:02] VITALS: BP 112/68; PULSE 69; TEMP 36.6; O2SAT 94
[2018-01-28 13:17] VITALS: BP 112/68; PULSE 69; TEMP 36.6; O2SAT 94
--- NOTE | 2018-01-28 13:23 | Progress Note ---
Progress Note Date of Service Jan 28, 2018. Progress Note Patient's back pain is controlled. Leg symptoms and pain are markedly improved. Still describes some weakness with ambulation in his lower extremities. This is improving. Exam is good strength testing appears comfortable. Assessment status post lumbar decompression fusion per plan at this time is anticipating discharge to [facility]. We will see him in a week for x-rays.
--- NOTE | 2018-01-28 18:56 | Discharge Summary ---
Discharge Summary Date of Service Jan 28, 2018. Discharge Summary Admission Date: Jan 17, 2018 at 09:18 Discharge Date: Jan 28, 2018 Discharge Disposition: Rehab Principal Diagnosis: spinal stenosis with surgery, acute diastolic heart failure resolved Medication Reconciliation New Medications: Acetaminophen (Sb Non-Aspirin Extra Stre) 500 Mg Tab 1000 MG PO Q8H PRN for Pain score 1-3, #60 TAB Furosemide (Furosemide) 80 Mg Tab 80 MG PO QAM, #60 TAB Insulin Aspart (Novolog Flexpen) 100 Units/Ml Inj 0 UNITS SC ACHS, #1 PEN Insulin Glargine (Lantus Solostar) 100 Unit/Ml Inj 8 UNITS SC BID, #1 DOSE Ipratropium-Albuterol (Duoneb) 3 Ml Nebu 3 ML INH QIDR, #90 DOSE Levofloxacin (Levofloxacin) 500 Mg Tab 500 MG PO Q48H, #3 TAB Lidocaine (Lidocaine) 1 Patch Tdsy 1 PATCH TD QAM, #30 PATCH Oxycodone HCl (Oxycodone HCl) 5 Mg Tab 5-10 MG PO Q4H PRN for Moderate - severe pain for 30 Days, #60 TAB Tamsulosin HCl (Tamsulosin HCl) 0.4 Mg Cap 0.4 MG PO HS, #30 CAP Continued Medications: Aspirin (Aspirin Ec) 81 Mg Tab 81 MG PO QPM Citalopram Hydrobromide (Citalopram Hydrobromide) 20 Mg Tab 1 TAB PO QAM for 90 Days, #90 TAB 3 Refills Digoxin (Digoxin) 0.125 Mg Tab 1 TAB PO QAM Levothyroxine Sodium (Levothyroxine Sodium) 100 Mcg Tab 1 TAB PO QAM for 90 Days, #90 TAB 3 Refills Linaclotide (Linzess) 72 Mcg Cap 1 CAP PO Q2D Metoprolol Tartrate (Lopressor) (Lopressor) 25 Mg Tab 25 MG PO BID, TAB Oxycodone Ir (Roxicodone Ir) 5 Mg Tab 5 MG PO Q6H PRN for Pain, TAB Ranitidine (Zantac) 300 Mg Tab 300 MG PO HS, TAB Sennosides-Docusate Sodium (Stool Softener) 1 Tab Tab 1 TAB PO BID Discontinued Medications: Furosemide (Lasix) 40 Mg Tab 40 MG PO Q2D, TAB Insulin Glargine (Toujeo Solostar) 300 Unit/Ml Inj 30 UNITS SQ BID Lisinopril (Zestril) 20 Mg Tab 20 MG PO QAM, TAB Discharge Exam Review of Systems: Constitutional: No fever, No chills Respiratory: No cough, No shortness of breath Cardiovascular: No chest pain, No edema Abdomen: No pain, No nausea, No diarrhea Musculoskeletal: No joint pain, No muscle pain, No swelling Physical Exam: General Appearance: WD/WN, + mild distress Eyes: normal inspection, sclerae normal Neck: supple, no carotid bruits Respiratory/Chest: chest non-tender, lungs clear, normal breath sounds Cardiovascular: regular rate, rhythm, no murmur Abdomen / GI: normal bowel sounds, non tender, soft Neurologic/Psychiatric: alert, oriented x 3 Hospital Course 77 yo male with acute pulmonary edema secondary to acute on chronic diastolic heart failure after lumbar decompression surgery Urinary Frequency with Flank Pain/Groin Pain: - Repeat renal U/S with findings of dilated R collecting system but no visible stone or hydro; questionably passed stone - Strain urine; flomax and proscar - Levaquin 500 mg Q48H started Possible Hematochezia likely hemorrhoidal - Hgb stable Mechanical Fall on 01/25: - Patient tried to ambulate unassisted and slipped seemingly musculoskeletal injury only Acute on Chronic Diastolic CHF improved HTN: STABLE Lisinopril remains on hold due to TANNER; - U/S obtained with no subclavian stenosis - obtained due to discrepancies in BP readings in arms - Lopressor 25 mg BID TANNER on CKD Stage III: IMPROVING - Nephrology following - appreciate assistance and continued diuretics Recent UTI (as outpatient) - Citrobacter: RESOLVED - with return of colic was placed on renal dose levaquin T2DM: basal bolus, may need to transition to oral meds at discharge Hypothyroidism: STABLE on Synthroid 100 mcg daily Lumbar Spinal Stenosis S/P Decompression: IMPROVING - Continue bowel regimen - Senna - Dr. Brown will follow up as outpt Total Time Spent: Greater than 30 minutes This includes examination of the patient, discharge planning, medication reconciliation, and communication with other providers. Discharge Instructions Please refer to the electronic Patient Visit Report (Discharge Instructions) for additional information.
== END 2018-01-28 14:54 | DRG 459 ==
LOC: C.ACU 07:49 → C.MSW 10:31 → EDBEDREQSVC 10:33 → EDBEDREQ 10:39 → EDBEDREQSVC 10:39 → ENRESERV 10:53 → OBSVTOIN 01-17 09:18
PROVIDERS: ADMIT Internal Medicine; ATTEND Internal Medicine
PROC: 0SG1071 Fusion of 2 or more Lumbar Vertebral Joints with Autologous Tissue Substitute, Posterior Approach, Posterior Column, Open Approach (ICD-10-PCS; principal; 2018-01-17 11:15)
DX: M48.062 Spinal stenosis, lumbar region with neurogenic claudication (principal); I13.0 Hypertensive heart and chronic kidney disease with heart failure and stage 1 through stage 4 chronic kidney disease, or unspecified chronic kidney disease; I50.33 Acute on chronic diastolic (congestive) heart failure; N17.0 Acute kidney failure with tubular necrosis; N39.0 Urinary tract infection, site not specified; I42.9 Cardiomyopathy, unspecified; B96.89 Other specified bacterial agents as the cause of diseases classified elsewhere; Z16.11 Resistance to penicillins; Z91.128 Patient's intentional underdosing of medication regimen for other reason; M62.830 Muscle spasm of back; K59.00 Constipation, unspecified; R41.82 Altered mental status, unspecified; T40.2X5A Adverse effect of other opioids, initial encounter; T42.4X5A Adverse effect of benzodiazepines, initial encounter; E11.649 Type 2 diabetes mellitus with hypoglycemia without coma; W01.0XXA Fall on same level from slipping, tripping and stumbling without subsequent striking against object, initial encounter; Y92.230 Patient room in hospital as the place of occurrence of the external cause; N20.0 Calculus of kidney; R35.0 Frequency of micturition; R32 Unspecified urinary incontinence; K64.9 Unspecified hemorrhoids; E11.22 Type 2 diabetes mellitus with diabetic chronic kidney disease; N18.3 Chronic kidney disease, stage 3 (moderate); E03.9 Hypothyroidism, unspecified; F32.9 Major depressive disorder, single episode, unspecified; K21.9 Gastro-esophageal reflux disease without esophagitis; J44.9 Chronic obstructive pulmonary disease, unspecified; E66.9 Obesity, unspecified; Z68.32 Body mass index [BMI] 32.0-32.9, adult; I25.2 Old myocardial infarction; Z87.442 Personal history of urinary calculi; Z87.891 Personal history of nicotine dependence; Z90.49 Acquired absence of other specified parts of digestive tract; Z79.4 Long term (current) use of insulin; Z79.82 Long term (current) use of aspirin; Z79.899 Other long term (current) drug therapy; Z82.49 Family history of ischemic heart disease and other diseases of the circulatory system; Z83.3 Family history of diabetes mellitus; Z83.49 Family history of other endocrine, nutritional and metabolic diseases